=== PATIENT | female | born 1965 | race Caucasian/White ===

== ENCOUNTER 2016-03-31 23:48 | Inpatient (IN) | payer MEDICAID ==
[2016-04-01 01:07] VITALS: BP 138/85
[2016-04-01] MEDS: Albuterol/Ipratropium Neb 3 ML AERS HHN PRN (02:02)
[2016-04-01] MEDS ORDERED: Magnesium Hydroxide (MOM) 30 mL UDC GT PRN (04:27)
[2016-04-01 05:39] LABS: % BASOPHILS 1.1 % (0.0-2.0); % EOSINOPHILS 1.1 % (0.0-5.0); % LYMPHOCYTES 36.5 % (20.0-50.0); % MONOCYTES 12.7 % (2.0-10.0); % NEUTROPHILS 48.6 % (40.0-80.0); HEMATOCRIT 30.5 % (35.0-45.0); HEMOGLOBIN 10.2 gm/dL (11.7-15.5); MEAN CELL VOLUME 91.3 fl (81-100); MEAN CORPUSCULAR HEMOGLOBIN 30.7 pg (27.0-31.0); MEAN CORPUSCULAR HGB CONC 33.6 pg (28.0-36.0); MEAN PLATELET VOLUME 7.4 fl; NEUTROPHILE ABSOLUTE 5.8 Th/cmm (1.8-8.0); PLATELET COUNT 429 Th/cmm (150-400); RED BLOOD COUNT 3.33 Mil/cmm (3.80-5.10); RED CELL DISTRIBUTION WIDTH 15.9 % (11.5-20.0); WHITE BLOOD COUNT 11.8 Th/cmm (4.8-10.8)
[2016-04-01 06:18] LABS: ALB/GLOB RATIO 0.8 (1.0-1.8); ALKALINE PHOSPHATASE 66 U/L (34-104); ANION GAP 7.9 (7.0-16.0); BILIRUBIN,TOTAL 0.6 mg/dL (0.3-1.0); BUN - UREA NITROGEN 7 mg/dL (7-25); BUN/CREATININE RATIO 23.3; CALCIUM SERUM 9.7 mg/dL (8.6-10.3); CARBON DIOXIDE 27.4 mEq/L (21.0-31.0); CHLORIDE 101 mEq/L (98-107); CREATININE - SERUM 0.3 mg/dL (0.6-1.2); GLUCOSE 93 mg/dL (70-105); MAGNESIUM 1.7 mg/dL (1.9-2.7); POTASSIUM SERUM 3.3 mEq/L (3.5-5.1); SGOT 18 U/L (13-39); SGPT/ALT 8 U/L (7-52); SODIUM SERUM 133 mEq/L (136-145)
[2016-04-01] MEDS: Albuterol/Ipratropium Neb 3 ML AERS HHN SCH ×3 (07:44→19:16)
[2016-04-01] MEDS: Chlorhexidine Gluconate 0.12% 15mL Mouthwash MM SCH ×2 (08:21→21:20)
[2016-04-01] MEDS: Ferrous Sulfate 300 MG/5 ML UDC GT SCH (10:55)
[2016-04-01] MEDS: Multivitamin w/ Minerals Tab GT SCH (10:55)
[2016-04-01] MEDS: Potassium Chloride Elixir 20 mEq /15 mL UDC GT SCH (13:00)
[2016-04-01] MEDS ORDERED: Mag Sulfate 2gm/50mL Premix 2 GM/50 ML BAG IV ONE (13:30)
[2016-04-01] MEDS ORDERED: CEFTAZIDIME IV SCH (15:00)
[2016-04-01] MEDS ORDERED: Pneumococcal Vaccine 0.5 mL Vial IM ONE (15:00)
[2016-04-01] MEDS ORDERED: NS 0.9% IV SCH (15:00)
[2016-04-01] MEDS: Levofloxacin 500mg/100mL 500 MG/100 ML BAG IV SCH (17:26)
[2016-04-01] MEDS: Atorvastatin Calcium 10 MG TAB GT SCH (21:20)
[2016-04-01 22:11] LABS: URINE COLOR YELLOW
[2016-04-01 22:18] LABS: URINE BILIRUBIN NEGATIVE (NEGATIVE); URINE BLOOD NEGATIVE (NEGATIVE); URINE GLUCOSE (UA) NEGATIVE (NEGATIVE); URINE KETONE NEGATIVE (NEGATIVE); URINE PROTEIN NEGATIVE (NEGATIVE); URINE UROBILINOGEN 0.2 E.U./dL (0.2 - 1.0)
[2016-04-01 22:19] LABS: URINE RBC 0-1 /hpf (0-5)
[2016-04-01 22:20] LABS: URINE BACTERIA OCCASIONAL /hpf (NONE SEEN); URINE EPITHELIAL CELLS OCCASIONAL /lpf (FEW)
[2016-04-01] MEDS: Ipratropium Neb 0.5 mg/2.5 mL UD HHN SCH (22:56)
--- NOTE | 2016-04-02 00:05 | Consultation ---
TYPE OF CONSULTATION: Psychiatric. REFERRING PHYSICIAN: Dr. Chacorta Gupta. REASON FOR CONSULTATION: Depression/suicidal ideations. HISTORY OF PRESENT ILLNESS: The patient transferred via ambulance on a voluntary basis for pneumonia. The patient has a significant history of polysubstance dependence and bipolar disorder, which she has not been compliant with. The patient stated that her last psychiatric hospitalization was about 2 years ago, where she attempted to overdose on tablets and alcohol. The patient is currently denying minimize all the events. States that she has not been compliant with her medications since her discharge 2 years ago and admits that she has been using alcohol and that there was a substance. She is currently denying any suicidal or homicidal ideations. According to staff, she has not been engaging in any self interest or assaultive behavior. PAST PSYCHIATRIC HISTORY: The patient states she has had 1 past hospitalization at an unknown hospital about 2 years ago for a suicide attempt by overdose. PAST MEDICAL HISTORY: The patient is physically healthy. ALLERGIES: No known drug allergies. SOCIAL HISTORY: The patient is currently at homeless, unknown how she supports herself financially. The patient denies ____. Denies ____ physical or sexually abuse. MENTAL STATUS, GENERAL APPEARANCE AND BEHAVIOR. The patient is resting comfortably, not in acute distress. Good eye contact, calm for interview. Speech normal rate, rhythm and tone. Mood and Affect: The patient described her mood as anxious. Affect is congruent. Thought process, thought content, linear, logical patient denying any suicidal or homicidal ideations, is not displaying any flight of ideas with good reality testing. Insight and judgment is fair. DIAGNOSTIC IMPRESSION: Bipolar disorder by history, most recently episodes, depressed without psychotic features and polysubstance dependence. PLAN: The patient is currently denying any suicidal or homicidal ideations, but she does not meet criteria for inpatient stay and can be discharged once she is medically cleared. The patient is currently on Lamictal 25 mg for mood stabilization, would recommend continuing that and titrating as needed. We will follow up on an as needed basis. Thank you, for allowing us to participate in the patient's care. [facility]# [id number]
--- NOTE | 2016-04-02 01:11 | History & Physical ---
Vineet Gupta M.D. dictating for Chacorta Gupta M.D. HISTORY OF PRESENT ILLNESS: The patient is being admitted to ICU on transfer from [facility] Emergency Room, where she was transferred from the care home, where she is a resident with history of increasing anxiety and short of breath. According to the history obtained from the medical record, transfer records and from the patient that she started feeling anxiety and short of breath, so transferred to Emergency Room. Denies of any fever, chills or rigor. The patient also denies of any nausea, vomiting, feeling dizzy, lightheaded. Has had some pain at the lower part of the chest. This chest pain is on the lateral side, more on the left side than the right. The patient was evaluated at [place] and it shows that she has had multilobular patchy pulmonary opacities, left greater than right, no pleural effusion, no pneumothorax. Her lab work was showing that she has had some leukocytosis and left shift as WBC count was 16.7, hemoglobin is slightly low to 10.5. The platelet count is elevated to 487. Chem-7 was normal. Here, magnesium was repeated, which was low. Urine test was negative for anything, and urine drug screen negative for the most common drug abused. PAST MEDICAL HISTORY: Has had respiratory failure, status post tracheostomy, status post PEG. Has history of alcohol and amphetamine abuse. She also has history of multi-substance abuse and has bipolar personality. 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 Most likely, there are drug-related complications. ALLERGIES: Penicillin and sulfa, but apparently no reaction to the Fortaz given in the [facility] ER, this was dosed there. MEDICATIONS: Reviewed and reconciled. The patient is on G tube feeding. REVIEW OF SYSTEMS: Nothing contributory except as mentioned above. PHYSICAL EXAMINATION: GENERAL: The patient is a 50-year-old female, alert, oriented, on vent. VITAL SIGNS: Pulse is in the 86-91 range. Blood pressure 114/70, O2 saturation on present setting is 100%. HEENT: Normal, nontraumatic. Eyes: Conjunctivae normal. Pupils are equal, reacting to light. ENT: Looks normal. NECK: Tracheostomy and tracheal tube is in place. JVP difficult to evaluate. LUNGS: Bilateral basilar rales present. Otherwise, upper part is clear. CARDIOVASCULAR SYSTEM: PMI not palpable. Heart sounds are normal. No gallop or murmur is appreciated. No rub is appreciated. ABDOMEN: Soft. There is tenderness present in the left side area. [employer]TER: Left-sided hemiparesis present. EXTREMITIES: No edema, no cyanosis, no clubbing. Peripheral pulses are equal bilaterally. IMPRESSION: Bibasilar pneumonia with increasing respiratory distress. The patient has chronic respiratory failure and is ventilator dependent. Has history of drug abuse that is alcohol and amphetamine and with complications of that causing cerebrovascular accident and respiratory failure. The patient is ventilator dependent. Also has depression and suicidal thought. Other medical problems as mentioned. PLAN: Continue supportive care. IV Fortaz and vancomycin, we will continue that. We will get ID consult as needed. Also, we will get Dr. Rob Perera for Pulmonary and ventilator management. Psych consultation with Dr. Aparicio. Further workup and management as needed. We will get Dr. Galdino Perera for ID consultation and further workup and management as needed. JOB# [id number]
[2016-04-02] MEDS: Ipratropium Neb 0.5 mg/2.5 mL UD HHN SCH ×6 (03:20→22:56)
[2016-04-02 06:41] LABS: ALB/GLOB RATIO 0.8 (1.0-1.8); ALKALINE PHOSPHATASE 62 U/L (34-104); ANION GAP 9.2 (7.0-16.0); BILIRUBIN,DIRECT 0.13 mg/dL (0.0-0.2); BILIRUBIN,TOTAL 0.4 mg/dL (0.3-1.0); BUN - UREA NITROGEN 9 mg/dL (7-25); CALCIUM SERUM 9.5 mg/dL (8.6-10.3); CARBON DIOXIDE 29.6 mEq/L (21.0-31.0); CHLORIDE 99 mEq/L (98-107); CREATININE - SERUM 0.3 mg/dL (0.6-1.2); GLUCOSE 109 mg/dL (70-105); POTASSIUM SERUM 3.8 mEq/L (3.5-5.1); SGOT 14 U/L (13-39); SGPT/ALT 8 U/L (7-52); SODIUM SERUM 134 mEq/L (136-145)
[2016-04-02] MEDS: Albuterol/Ipratropium Neb 3 ML AERS HHN SCH ×2 (07:33→12:53)
[2016-04-02] MEDS: Budesonide 0.5 Mg/2 mL Ud HHN SCH ×2 (07:41→19:00)
[2016-04-02] MEDS: Chlorhexidine Gluconate 0.12% 15mL Mouthwash MM SCH ×2 (08:10→21:52)
[2016-04-02] MEDS: Multivitamin w/ Minerals Tab GT SCH (08:43)
[2016-04-02] MEDS: Ferrous Sulfate 300 MG/5 ML UDC GT SCH (08:43)
[2016-04-02] MEDS: Potassium Chloride Elixir 20 mEq /15 mL UDC GT SCH (08:44)
--- NOTE | 2016-04-02 10:28 | Diagnostic Imaging Report ---
Portable chest x-ray HISTORY: Pneumonia The overall heart size is difficult to assess with portable technique in a poor inspiration. Infiltrates noted in the right left upper lobe regions. Pneumonia cannot be excluded. Clinical correlation is needed. Tracheostomy seen. IMPRESSION: 1. Bilateral infiltrates. Pneumonia cannot be excluded. Clinical correlation is needed.
[2016-04-02 11:48] LABS: ABG SOURCE Arterial; ALLEN TEST PASS; BE(B) 7.5 mmol/L (-3.0-3.0); HCO3 31.1 mmol/L (20.0-26.0); MECH RATE 10; pH 7.51 (7.35-7.45)
[2016-04-02 11:49] LABS: CRITICAL VALUES REPORTED BY PW; FIO2 30; MECH VT 500
[2016-04-02] MEDS ORDERED: Probiotic Screen MC PRN (14:38)
[2016-04-02] MEDS: Levofloxacin 500mg/100mL 500 MG/100 ML BAG IV SCH (17:14)
[2016-04-02] MEDS: Atorvastatin Calcium 10 MG TAB GT SCH (21:55)
[2016-04-03] MEDS: Ipratropium Neb 0.5 mg/2.5 mL UD HHN SCH ×5 (02:38→22:32)
[2016-04-03 05:04] LABS: % BASOPHILS 0.5 % (0.0-2.0); % EOSINOPHILS 0.5 % (0.0-5.0); % LYMPHOCYTES 23.1 % (20.0-50.0); % MONOCYTES 9.9 % (2.0-10.0); HEMATOCRIT 30.7 % (35.0-45.0); HEMOGLOBIN 10.4 gm/dL (11.7-15.5); MEAN CELL VOLUME 89.3 fl (81-100); MEAN CORPUSCULAR HEMOGLOBIN 30.4 pg (27.0-31.0); MEAN PLATELET VOLUME 7.5 fl; NEUTROPHILE ABSOLUTE 11.9 Th/cmm (1.8-8.0); PLATELET COUNT 434 Th/cmm (150-400); RED BLOOD COUNT 3.43 Mil/cmm (3.80-5.10); RED CELL DISTRIBUTION WIDTH 15.8 % (11.5-20.0)
[2016-04-03 05:12] LABS: WHITE BLOOD COUNT 18.1 Th/cmm (4.8-10.8)
[2016-04-03 05:29] LABS: BUN - UREA NITROGEN 7 mg/dL (7-25); BUN/CREATININE RATIO 23.3; CALCIUM SERUM 9.9 mg/dL (8.6-10.3); CARBON DIOXIDE 27.8 mEq/L (21.0-31.0); CHLORIDE 98 mEq/L (98-107); CREATININE - SERUM 0.3 mg/dL (0.6-1.2); GLUCOSE 142 mg/dL (70-105); POTASSIUM SERUM 3.8 mEq/L (3.5-5.1); SODIUM SERUM 131 mEq/L (136-145)
[2016-04-03] MEDS: Albuterol/Ipratropium Neb 3 ML AERS HHN SCH ×2 (07:32→13:10)
[2016-04-03] MEDS: Potassium Chloride Elixir 20 mEq /15 mL UDC GT SCH (08:46)
[2016-04-03] MEDS: Ferrous Sulfate 300 MG/5 ML UDC GT SCH (08:47)
[2016-04-03] MEDS: Multivitamin w/ Minerals Tab GT SCH (08:51)
[2016-04-03] MEDS: Lactobacillus Rhamnosus 10 Billion CFU Capsule PO SCH (08:51)
[2016-04-03] MEDS: Chlorhexidine Gluconate 0.12% 15mL Mouthwash MM SCH ×2 (08:52→21:22)
--- NOTE | 2016-04-03 09:49 | Consultation ---
REASON FOR CONSULTATION: Help patient with pneumonia with [id number] respiratory failure. CONSULT NOTE: This is a 50-year-old female who is in a chronic vent at some local facility and because she got more shortness of breath, the patient went to the Emergency Room. Subsequently, because of insurance reason, the patient was transferred here for further care and necessary treatment. The patient complains of panic attack. She is on a respirator for last 2 months and also was in coma according to her history and since then she is not able to move left upper and lower extremity. All other sequence of events lead to pneumonia, etc. a couple of months ago, is not clear to me. Apparently, she is on a trach since then and the patient got short of breath and was taken to a local Emergency Room and from there transferred here. PAST MEDICAL HISTORY: History of previous pneumonia, on a ventilator, exact etiology not clear whether it is a drug abuse and/or encephalopathy or possibly stroke. SOCIAL HISTORY: Smoking history very remote. Drug Use: History of positive drug use. ALLERGIES: THE PATIENT SAYS NOTHING EXCEPT FOR PENICILLIN AND SULFA. FAMILY HISTORY: Noncontributory. Other history is very sketchy or limited. PHYSICAL EXAMINATION: GENERAL: This is a middle-aged looking female, awake, alert, oriented, tried to talk through the trach, making some funny noise. Not in any acute distress. VITAL SIGNS: Currently, on assist control mode of ventilator with 40% of oxygen and temperature is 97.9, blood pressure 135/73. HEENT: Head is essentially unremarkable. Pupils appear to be equal and reacting to light. Conjunctivae are pink, sclerae is white. Ears: Externally appears to be okay. Oral cavity shows limited exam, unremarkable. NECK: No nodes in the neck could be palpated. Good bilateral carotid upstroke. CHEST: Findings shows scattered rhonchi with generalized diminished air entry. HEART: Regular. EXTREMITIES: Shows no peripheral edema. No cyanosis or clubbing could be appreciated. Left side shows hemiparesis. LABORATORY DATA: The patient's white count is 11,000. Chest x-ray is not available to me at this particular time. ASSESSMENT IMPRESSION: 1. The patient has fqgzo-[id number] respiratory failure, probably ziggf-iq-knutwyv pneumonia, ventilator associated. 2. Underlying history of chronic ventilator-dependent with left-sided hemiplegia. PLANS AND SUGGESTIONS: We will go ahead and continue current antibiotic including vancomycin and also continue aggressive inhalation treatment and await for sputum for C and S. We will repeat another chest x-ray. We will give some anxiolytic medications, etc., and go from there. JOB# [id number]
--- NOTE | 2016-04-03 15:12 | Infectious Disease Prog Note ---
Infectious Disease Subjective - Review of Systems Service Date: 04/03/16 Subjective: cc pneummonia hpi- pt confused seen by psyche cornel no fever o/e Physical Exam: General: No Acute Distress HEENT: EOMI Bilaterally, PERRLA Bilaterally, Head is normocephalic, atraumatic on inspection. Cardio: +S1/S2 Auscultated, RRR, no murmurs/rubs/gallops noted Respiratory: Clear to Auscultate Bilaterally trach Abdominal: Soft, Nondistended, Nontender to palpation x 4 quadrants Genital/Urinary: Extremities: No Edema noted in the lower extremities Neurological: Cranial Nerves II-XII intact bilaterally, Gait Steady,l Focal Deficits noted. Infectious Disease Objective - Results Result Diagrams: 04/03/16 04:41 04/03/16 04:41 Recent Labs: Laboratory Last Values WBC 18.1 Th/cmm (4.8-10.8) H D 04/03/16 04:41 RBC 3.43 Mil/cmm (3.80-5.10) L 04/03/16 04:41 Hgb 10.4 gm/dL (11.7-15.5) L 04/03/16 04:41 Hct 30.7 % (35.0-45.0) L 04/03/16 04:41 MCV 89.3 fl (81-100) 04/03/16 04:41 MCH 30.4 pg (27.0-31.0) 04/03/16 04:41 MCHC Differential 34.0 pg (28.0-36.0) 04/03/16 04:41 RDW 15.8 % (11.5-20.0) 04/03/16 04:41 Plt Count 434 Th/cmm (150-400) H 04/03/16 04:41 MPV 7.5 fl 04/03/16 04:41 Neutrophils % 66.0 % (40.0-80.0) 04/03/16 04:41 Lymphocytes % 23.1 % (20.0-50.0) 04/03/16 04:41 Monocytes % 9.9 % (2.0-10.0) 04/03/16 04:41 Eosinophils % 0.5 % (0.0-5.0) 04/03/16 04:41 Basophils % 0.5 % (0.0-2.0) 04/03/16 04:41 ESR 76 mm/hr (0-30) H 04/03/16 04:41 Specimen Source Arterial 04/02/16 11:17 Sample Site Right Radial 04/02/16 11:17 pH 7.51 (7.35-7.45) H 04/02/16 11:17 pCO2 39.0 mmHg (35.0-45.0) 04/02/16 11:17 pO2 110.0 mmHg (80.0-100.0) H 04/02/16 11:17 HCO3 31.1 mmol/L (20.0-26.0) H 04/02/16 11:17 Base Excess 7.5 mmol/L (-3.0-3.0) H 04/02/16 11:17 O2 Saturation 99.0 % (92.0-100.0) 04/02/16 11:17 Kenan Test PASS 04/02/16 11:17 Vent Rate 10 04/02/16 11:17 Inspired O2 30 04/02/16 11:17 Tidal Volume 500 04/02/16 11:17 PEEP 5 04/02/16 11:17 Critical Value PW 04/02/16 11:17 Sodium 131 mEq/L (136-145) L 04/03/16 04:41 Potassium 3.8 mEq/L (3.5-5.1) 04/03/16 04:41 Chloride 98 mEq/L (98-107) 04/03/16 04:41 Carbon Dioxide 27.8 mEq/L (21.0-31.0) 04/03/16 04:41 Anion Gap 9.0 (7.0-16.0) 04/03/16 04:41 BUN 7 mg/dL (7-25) 04/03/16 04:41 Creatinine 0.3 mg/dL (0.6-1.2) L 04/03/16 04:41 Est GFR ( Amer) > 60.0 ml/min (>90) 04/03/16 04:41 Est GFR (Non-Af Amer) > 60.0 ml/min 04/03/16 04:41 BUN/Creatinine Ratio 23.3 04/03/16 04:41 Glucose 142 mg/dL (70-105) H 04/03/16 04:41 Calcium 9.9 mg/dL (8.6-10.3) 04/03/16 04:41 Magnesium 2.0 mg/dL (1.9-2.7) 04/02/16 04:33 Total Bilirubin 0.4 mg/dL (0.3-1.0) 04/02/16 04:33 Direct Bilirubin 0.13 mg/dL (0.0-0.2) 04/02/16 04:33 AST 14 U/L (13-39) 04/02/16 04:33 ALT 8 U/L (7-52) 04/02/16 04:33 Alkaline Phosphatase 62 U/L (34-104) 04/02/16 04:33 C-Reactive Protein 1.70 mg/dL (0.0-0.9) H 04/03/16 04:41 Total Protein 6.9 gm/dL (6.0-8.3) 04/02/16 04:33 Albumin 3.1 gm/dL (3.7-5.3) L 04/02/16 04:33 Globulin 3.8 gm/dL 04/02/16 04:33 Albumin/Globulin Ratio 0.8 (1.0-1.8) L 04/02/16 04:33 Urine Source [place] 04/01/16 11:10 Urine Color YELLOW 04/01/16 11:10 Urine Clarity SLIGHTLY CLOUDY (CLEAR) 04/01/16 11:10 Urine pH 6.0 04/01/16 11:10 Ur Specific [place] 1.025 (1.005-1.030) 04/01/16 11:10 Urine Protein NEGATIVE mg/dL (NEGATIVE) 04/01/16 11:10 Urine Glucose (UA) NEGATIVE mg/dL (NEGATIVE) 04/01/16 11:10 Urine Ketones NEGATIVE mg/dL (NEGATIVE) 04/01/16 11:10 Urine Blood NEGATIVE (NEGATIVE) 04/01/16 11:10 Urine Nitrate NEGATIVE (NEGATIVE) 04/01/16 11:10 Urine Bilirubin NEGATIVE (NEGATIVE) 04/01/16 11:10 Urine Urobilinogen 0.2 E.U./dL (0.2 - 1.0) 04/01/16 11:10 Ur Leukocyte Esterase NEGATIVE (NEGATIVE) 04/01/16 11:10 Urine RBC 0-1 /hpf (0-5) 04/01/16 11:10 Urine WBC 2-5 /hpf (0-5) 04/01/16 11:10 Ur Epithelial Cells OCCASIONAL /lpf (FEW) 04/01/16 11:10 Urine Bacteria OCCASIONAL /hpf (NONE SEEN) 04/01/16 11:10 Urine Yeast FEW /hpf (NONE SEEN) H 04/01/16 11:10 - Physical Exam Vitals and I&O: Vital Signs Temp 97.6 F 04/03/16 13:00 Pulse 103 04/03/16 13:10 Resp 23 04/03/16 13:00 BP 121/80 04/03/16 13:00 Pulse Ox 99 04/03/16 13:10 Intake & Output 04/02/16 04/03/16 04/03/16 18:59 06:59 18:59 Intake Total 783 8816.7 170 Output Total 600 1302 100 Balance 183 7514.7 70 Intake: Intake, IV Amount 200 295.7 100 Levofloxacin 500mg/100mL 100 500 mg In 100 ml @ 100 mls/hr IV Q24H [facility] Rx#: [id number] Vancomycin HCl 1 gm In 245.7 Sodium Chloride 0.9% 250 ml @ 165 mls/hr IV Q24H [facility] Rx#:[id number] cefTAZidime 1 gm In 100 50 100 Dextrose 5% 50 ml @ 100 mls/hr IV Q8H [facility] Rx#: [id number] Oral 0 0 Tube Feeding 583 8401 70 Other 120 Output: Urine 600 1300 100 Stool 2 Other: # Bowel Movements 1 Stool Characteristics Soft Soft Soft Green Brown Brown Active Medications: Current Medications Acetaminophen (Tylenol 650mg/20.3ml Suspension) 640 mg GT Q4H PRN PRN Reason: Pain (Mild) Stop: 05/31/16 04:26 Last Admin: 04/01/16 11:01 Dose: 640 mg Acetaminophen (Tylenol 650mg/20.3ml Suspension) 640 mg GT Q4H PRN PRN Reason: Fever > 101 Stop: 05/31/16 04:26 Albuterol/Ipratropium (Duoneb Neb) 3 ml HHN Q6HRT [facility] Stop: 05/31/16 06:59 Last Admin: 04/03/16 13:10 Dose: 3 ml Albuterol/Ipratropium (Duoneb Neb) 3 ml HHN Q2H PRN PRN Reason: Wheezing Stop: 05/31/16 01:21 Last Admin: 04/01/16 02:02 Dose: 3 ml Aspirin (Aspirin) 325 mg GT DAILY [facility] Stop: 05/31/16 08:59 Last Admin: 04/03/16 08:50 Dose: 325 mg Atorvastatin Calcium (Lipitor) 5 mg GT HS [facility] PRN Reason: Protocol Stop: 05/31/16 20:59 Last Admin: 04/02/16 21:55 Dose: 5 mg Bisacodyl (Dulcolax 10 Mg Supp) 10 mg RC DAILY PRN PRN Reason: Constipation Stop: 05/31/16 04:26 Budesonide (Pulmicort) 0.5 mg HHN BIDRT [facility] Stop: 06/01/16 06:59 Last Admin: 04/02/16 19:00 Dose: 0.5 mg Chlorhexidine Gluconate (Peridex) 15 ml MM 0800,1999 [facility] Stop: 05/31/16 07:59 Last Admin: 04/03/16 08:52 Dose: 15 ml Clonidine HCl (Catapres) 0.3 mg GT Q6H PRN PRN Reason: sbp above 160 or dbp above 110 Diphenhydramine HCl (Benadryl) 25 mg GT Q6H PRN PRN Reason: Itching Stop: 05/31/16 04:26 Last Admin: 04/01/16 21:22 Dose: 25 mg Ferrous Sulfate (Iron) 330 mg GT DAILY [facility] Stop: 05/31/16 08:59 Last Admin: 04/03/16 08:47 Dose: 320 mg Heparin Sodium (Porcine) (Heparin) 5,000 units SUBQ Q12H [facility] Stop: 05/31/16 04:29 Last Admin: 04/03/16 05:13 Dose: Not Given Vancomycin HCl 1 gm/ Sodium (Chloride) 250 mls @ 165 mls/hr IV Q24H [facility] Stop: 05/31/16 15:59 Last Infusion: 04/02/16 19:43 Dose: 0 mls/hr Ceftazidime 1 gm/ Dextrose 50 mls @ 100 mls/hr IV Q8H [facility] Stop: 05/31/16 14:59 Last Infusion: 04/03/16 14:35 Dose: Infused Levofloxacin (Levaquin Pb) 500 mg in 100 mls @ 100 mls/hr IV Q24H [facility] Stop: 05/31/16 16:59 Last Infusion: 04/02/16 18:14 Dose: Infused Ipratropium [place] (Atrovent Neb 0.5mg/2.5ml) 0.5 mg HHN Q4HRT [facility] Stop: 05/31/16 22:59 Last Admin: 04/03/16 11:19 Dose: 0.5 mg Lactobacillus Rhamnosus (Culturelle) 1 each PO DAILY [facility] Stop: 06/02/16 08:59 Last Admin: 04/03/16 08:51 Dose: 1 each Lamotrigine (Lamictal) 25 mg GT HS [facility] PRN Reason: Protocol Stop: 05/31/16 20:59 Last Admin: 04/02/16 21:55 Dose: 25 mg Lorazepam (Ativan) 1 mg IVP Q4HR PRN; Protocol PRN Reason: Agitation Stop: 05/31/16 19:46 Last Admin: 04/03/16 12:30 Dose: 1 mg Magnesium Hydroxide (Milk Of Magnesia) 30 ml GT HS PRN PRN Reason: Constipation Stop: 05/31/16 04:26 Magnesium Oxide (Mag-Oxide) 400 mg GT DAILY [facility] Stop: 05/31/16 12:29 Last Admin: 04/03/16 08:50 Dose: 400 mg Miscellaneous (Probiotic Screen) 1 ea MC PRN PRN PRN Reason: PROTOCOL Stop: 06/01/16 14:37 Ondansetron HCl (Zofran Odt) 4 mg SL Q6H PRN PRN Reason: Nausea / Vomiting Potassium Chloride (Potassium Chloride Elixir) 20 meq GT DAILY [facility] Stop: 05/31/16 12:29 Last Admin: 04/03/16 08:46 Dose: 20 meq Propranolol HCl (Inderal) 20 mg GT BID [facility] Stop: 05/31/16 08:59 Last Admin: 04/03/16 08:47 Dose: 20 mg
[2016-04-03] MEDS: Sodium Chloride 0.9% 1,000 ML IV SCH (15:15)
--- NOTE | 2016-04-03 15:56 | Progress Notes ---
PROBLEM LIST: 1. Acute on chronic respiratory failure. 2. Possibly pneumonia, left side. 3. Underlying history of encephalopathy with cerebrovascular accident with left hemiparesis. SYMPTOMS: Nil, ____, no respiratory distress, switching TV. Denies of any significant symptomatology. PHYSICAL EXAMINATION: VITAL SIGNS: The patient's blood pressure 117/73, saturation 100% on 30% of ventilator, heart rate is in 80s, respirations in low teens and high tens. ENT: Shows no new changes. NECK: Trach site appears to be okay. CHEST: Shows occasional rhonchi with diminished air entry. HEART: Regular. ABDOMEN: Soft, nontender. LABORATORY DATA: The patient's white count is pending and patient's ABG shows mild metabolic alkalosis. White count is ____. Electrolytes are okay. Urine is essentially unremarkable ____. Chest x-ray shows some haziness on left side, also on the right upper regions, appears to my eyes, chronic in appearance. ASSESSMENT: The patient is clinically stable, not much changed, ____ with acute on chronic respiratory failure, underlying history of encephalopathy, also history of previous pneumonia as well as cerebrovascular accident, also long-term ventilator for the last 2-3 months. PLANS AND SUGGESTIONS: We will go ahead and continue current treatment. We will await for all the cultures to come back and see what it is and go from there. JOB# [id number]
[2016-04-03] MEDS: Levofloxacin 500mg/100mL 500 MG/100 ML BAG IV SCH (16:52)
--- NOTE | 2016-04-03 18:07 | Progress Notes ---
SUBJECTIVE: The patient is awake, alert. The patient is on ventilator. The patient is on IV antibiotics. The patient is on IV fluids. OBJECTIVE: VITAL SIGNS: Temperature is 98.4, pulse of 88, blood pressure 119/73, respiratory rate 11, pulse ox 100% on FIO2 of 30%. CARDIOVASCULAR: S1, S2. RESPIRATORY: Rales. GASTROINTESTINAL: Soft. Positive bowel sounds. LABORATORY DATA: CBC for today unavailable. ABG, pH 7.5, pCO2 39, pO2 110, bicarbonate of 31, base excess 7.5. Chemistry: Sodium 134, potassium 3.8, chloride 90, bicarbonate 29, anion gap of 9.2, BUN 9, creatinine 0.3, glucose 109, calcium 9.5, magnesium 2.0. AST is 14, ALT is 8, alkaline phosphatase 62, troponin 6.9, albumin 3.1, globulin 3.8. Microbiology: Urine culture from 04/01/2016 Staphylococcus aureus. The MRSA screen from 04/01/2016 negative. Urine culture from 04/01/2016 shows yeast. ASSESSMENT: 1. Sepsis. 2. Pneumonia, secondary to Staphylococcus aureus (probable methicillin-resistant Staphylococcus aureus). 3. Urinary tract infection, secondary to yeast. 4. Respiratory failure (acute) 5. Ventilator dependence. 6. History of drug abuse, history of alcohol abuse, history of methamphetamine abuse. 7. History of cerebrovascular accident. 8. Depression. 9. Suicidal ideation. PLAN: Continue current medication. Obtain labs in a.m. Awaiting final culture results. Continue ventilator management. Further consults. JOB# [id number] AMY
--- NOTE | 2016-04-03 19:21 | Consultation ---
INFECTIOUS DISEASE CONSULTATION: PRIMARY CARE PHYSICIAN: Chacorta Gupta M.D. REASON FOR CONSULTATION: Pneumonia. HISTORY OF PRESENT ILLNESS: This is a 50-year-old female who was initially taken to [place]. The patient was found to have anxiety, respiratory failure and was on ventilator. The patient was found to have pneumonia and was started on antibiotics. Infectious consultation was called for further treatment after transferred to [facility]. The patient is in ICU, unable to provide meaningful history. Chart reviewed, discussed with the staff, antibiotic adjusted. PAST MEDICAL HISTORY: Vent dependence, amphetamine abuse, CVA, left-sided hemiparesis, anxiety, bipolar disorder. ALLERGIES: Penicillin, sulfa. FAMILY HISTORY: None. PAST SURGICAL HISTORY: The patient has tracheostomy and EGD, PEG placement. REVIEW OF SYSTEMS: A 14-point review of systems negative except above. PHYSICAL EXAMINATION: GENERAL: The patient is alert, awake, not in distress, with the following vital signs, thin-built female. VITAL SIGNS: Temperature is 97.9, pulse 86, respirations 22, blood pressure 145/73. HEENT: Mild pallor, no icterus or plaque. NECK: Supple. . No thyromegaly, no cervical lymph nodes. Tracheostomy present. LUNGS: Breath sounds bilaterally decreased all over. CARDIOVASCULAR: S1, S2. ABDOMEN: Soft, bowel sounds. NEUROLOGIC: Left-sided weakness present. LABORATORY DATA: The patient's white count 11,000, hemoglobin is 10 g, platelets 429. Creatinine 0.3. Chest x-ray infiltrates. Cultures are pending. DIAGNOSES: 1. Pneumonia. 2. Ventilator dependence. 3. Cerebrovascular accident. 4. Left-sided hemiparesis. 5. Penicillin and sulfa allergy. PLAN: The patient is already on vancomycin, Fortaz. We will add Levaquin. Psych consult requested. Rest of the care as ordered in [facility]. Thank you, Dr. Gupta, for this consultation. JOB# [id number]
[2016-04-03] MEDS: Atorvastatin Calcium 10 MG TAB GT SCH (21:21)
--- NOTE | 2016-04-03 21:45 | Admit Criteria Form ---
Admit Criteria Forms - Admit Criteria Admit Criteria Met?: Yes
--- NOTE | 2016-04-04 00:33 | Admit Criteria Form ---
Admit Criteria Forms - Admit Criteria Diagnosis: INTENSIVE CARE UNIT ADMISSION Intensive Care Admission Guidelines ( Place 'X' for any and all applicable criteria): Admission to ICU may be indicated when need is demonstrated by ANY ONE of the following (1)(2)(3)(4)(5)(6)(7)(8)(9) : [ ]I. Vital sign abnormalities, including ANY ONE of the following: [ ]a) Systolic arterial pressure less than 90 mm Hg, or 20 mm Hg below the patient's usual pressure [ ]b) Diastolic arterial pressure greater than 120 mm Hg [ ]c) Mean arterial pressure less than 70 mm Hg [A] [ ]d) Pulse less than 40 or greater than 140 beats per minute (in adult) [ ]e) Respiratory rate greater than 35 or less than 8 breaths per minute [ ]II. Laboratory findings (new), including ANY ONE of the following (10): [ ]a) Saturation of arterial oxygen less than 88% or partial pressure of oxygen less than 60 mm Hg (8.0 kPa) despite oxygen supplementation [ ]b) Rising partial pressure of carbon dioxide with respiratory acidosis [ ]c) pH less than 7.2 or greater than 7.65 [ ]d) Serum glucose greater than 800 mg/dL (44.4 mmol/L) [ ]e) Serum sodium less than 110 mEq/L (mmol/L) or greater than 160 mEq/L (mmol/L) [ ]f) Serum potassium less than 2 mEq/L (mmol/L) or greater than 7 mEq /L (mmol/L) [ ]g) Serum calcium greater than 15 mg/dL (3.75 mmol/L) [ ]h) Serum phosphorus less than 1 mg/dL (0.32 mmol/L) [ ]i) Toxic drug level or poisoning causing or likely to cause neurologic or Hemodynamic instability [ ]j) Less severe laboratory abnormalities contributing to ANY ONE of the following: [ ]i) Seizure [ ]ii) Altered mental status [ ]iii) Muscle weakness [ ]iv) Arrhythmias [ ]v) Hemodynamic instability [ ]vi) Other significant clinical manifestations [ ]III. Electrocardiogram (or cardiac monitoring) findings, including ANY ONE of the following: [ ]a) Inherently unstable or life-threatening arrhythmia (eg, sustained ventricular tachycardia, ventricular fibrillation, asystole) [ ]b) Arrhythmia causing severe hypotension (eg, bradycardia, tachycardia) [ ]c) Complete heart block causing severe hypotension [ ]d) Other findings indicative of a need for intensive care (eg , [place]) [ ]IV.Physical findings, including ANY ONE of the following: [ ]a) Threatened airway [ ]b) Sudden altered mental status [ ]c) Repeated or prolonged seizures [ ]d) Coma [ ]e) New-onset anuria (urine output <0.1 mL/kg/hr over 4 h) [ ]f) Cyanosis (new) [ ]g) Cardiac tamponade [ ]h) Status post respiratory or cardiac arrest [ ]i) Severe lambert (eg, partial thickness lambert over more than 10% of body surface, third-degree lambert) [ ]j) Findings consistent with abdominal emergency (eg, peritoneal signs) [ ]V.Imaging findings, such as dissecting aneurysm or ruptured viscus [ ].Specific intervention or monitoring needed, as indicated by ANY ONE of the following: [ ]a) New need for assisted ventilation, invasive or noninvasive(11) [ ]b) New need for intubation (eg, to protect airway) [ ]c) New tracheostomy (less than 48 hours old) [ ]d) Hourly vital signs or neurologic checks [ ]e) Pulmonary artery line monitoring needed [ ]f) Continuous arterial line monitoring needed [ ]g) Continuous IV vasoactive drugs [ ]h) Continuous IV antiarrhythmics [ ]i) Large volume IV fluid resuscitation (eg, greater than 6 L per day ) [ ]j) Large or rapid transfusion needs (eg, more than 6 units within 24 hours) [ ]k) High-risk IV treatment, such as bolus IV medicatns or mannitol infusion [ ]l) Acute cardiac pacing [ ]m) Intra-aortic balloon pump [ ]n) Ventricular assist device [ ]o) Cardioversion [ ]p) Pericardiocentesis [ ]q) Hemodialysis in unstable patient [ ]r) Continuous renal replacement therapy (eg, continuous veno-venous hemofiltration) [ ]s) Peritoneal dialysis initiation [ ]t) Emergency bronchoscopic therapy (eg, for hemoptysis) [ ]u) Emergency endoscopic therapy for bleeding [ ]v) Balloon tamponade for variceal bleeding [ ]w) Intracranial pressure monitoring or tissue oxygen monitoring [ ]x) Ventriculostomy monitoring [ ]y) Treatment of ongoing seizures [ ]z) Induced hypothermia or coma [ ]aa) Ongoing frequent testing and treatment for acute conditions, including ANY ONE of the following: [ ]i) Correction of severe metabolic acidosis/ alkalosis [ ]ii). Severe fluid overload [ ]iii) Cerebral edema [ ]iv) Monitoring or suctioning for respiratory insufficiency or acidosis [ ]v) Monitoring for active bleeding [ ]bb) Rapid desensitization for high-risk hypersensitivity reaction to required medication (eg, penicillin)(12) [ ]cc) Other need for treatment or monitoring not available outside the ICU [ ]VII.Cardiology diagnoses or procedures, including ANY ONE of the following (13)(14)(15)(16)(17): [ ]a) Chest pain with ANY ONE of the following: [ ]i) Hemodynamic instability [ ]ii) Suspicion of diagnoses needing ICU care (eg, aortic dissection) [ ]iii) New unstable or symptomatic arrhythmia or ECG finding (eg, ventricular tachycardia, ventricular fibrillation, advanced heart block) [ ]iv) Syncope or near-syncope [ ]v) SBP less than 100 mm Hg [ ]vi) Pulmonary edema thought to be due to ischemia [ ]vii) New or worsening mitral regurgitation murmur, S3 , or rales [ ]b) Acute [place] with complications as indicated by ANY ONE of the following: [ ]i) Persistent chest pain [ ]ii) Hemodynamic instability [ ]iii) New unstable or symptomatic arrhythmia or ECG finding (eg, ventricular tachycardia, ventricular fibrillation, advanced heart block) [ ]iv) Syncope or near-syncope [ ]v) Pulmonary edema thought to be due to ischemia [ ]vi) New or worsening mitral regurgitation murmur, S3 , or rales [ ]vii) New-onset bundle branch block [ ]viii) Hemorrhagic complication (eg, intracranial or access site bleed following thrombolysis) [ ]c) Cardiac arrhythmia or conduction defect with Hemodynamic instability [ ]d) Complication of cardiac ablation, including ANY ONE of the following(18): [ ]i) Pericardial tamponade [ ]ii) Hemodynamic instability [ ]iii) Thromboembolic stroke [ ]iv) Aortic valve injury [ ]v) Vascular injuries [ ]vi) Esophageal perforation [ ]vii) Severe arrhythmia [ ]viii) Air embolism [ ]ix) Other severe complication [ ]e) Cardiogenic shock [ ]f) Hypertensive emergency, with need for ANY ONE of the following(19): [ ]i) IV antihypertensive therapy [ ]ii) Invasive hemodynamic monitoring (eg, arterial line) [ ]g) Pericardial tamponade [ ]h) Severe heart failure, with ANY ONE of the following(15): [ ]i) Respiratory failure [ ]ii) Cardiogenic shock [ ]iii) Severe arrhythmias [ ]iv) Evidence of cardiac ischemia [ ]i Myocarditis, with ANY ONE of the following [ ]i) Hemodynamic instability [ ]ii) Respiratory failure [ ]iii) Severe arrhythmias [ ]iv) Need for cardiac assist device (eg, left ventricular assist device or extracorporeal membrane oxygenator) [ ]j) Status post cardiac arrest(20) [ ]VIII. Cardiovascular Surgery diagnoses or procedures, including ANY ONE of the following.(21)(22): [ ]a) Acute aortic dissection [ ]b) Aortic surgery for ANY ONE of the following: [ ]i) Thoracic aneurysm [ ]ii) Abdominal aneurysm with ANY ONE of the following(23): [ ]1) Emergency repair [ ]2) Severe cardiopulmonary disease [ ]3) Dialysis-dependent renal failure [ ]4) Need for IV blood pressure control [ ]5) Need for ongoing ventilatory support [ ]6) Perioperative complications, including ANY ONE of the following: [ ]A. Sustained Hemodynamic instability [ ]B. Cardiac ischemia or arrhythmia [ ]C. Hypothermia (less than 35 degrees C (95 degrees F)) [ ]D. Blood transfusion greater than 3 L [ ]iii) Aortic coarctation operative excision or repair [ ]iv) Aortofemoral or aortoiliac bypass with ANY ONE of the following: [ ]1) Continued intubation [ ]2) Hemodynamic instability [ ]3) Need for IV blood pressure control [ ]4) Severe cardiopulmonary disease [ ]c) Cardiac surgery [ ]d) Carotid endarterectomy or stent placement with ANY ONE of the following: [ ]i) Blood pressure <100/60 mm Hg or >160/90 mm Hg despite 4 h of postanesthetic management [ ]ii) New or progressive neurologic defect [ ]iii) Chest pain [ ]iv) Continued intubation [ ]v) Heart failure [ ]vi) Airway compromise by hematoma or vocal cord paralysis [ ]vi) Need for IV blood pressure control [ ]e) Heart transplant [ ]f) Infrainguinal peripheral vascular surgery with ANY ONE of the following: [ ]i) Hemodynamic instability [ ]ii) Acute complications such as persistent chest pain or respiratory distress [ ]iii) Requirement for IV antiarrhythmic or vasoactive agent [ ]iv) Requirement for pulmonary artery catheter [ ]v) Severe hypertension despite 6 hours of recovery room management [ ]g) Complications of any surgery requiring ICU intervention as indicated by ANY ONE of the following(24): [ ]i) Hemodynamic instability [ ]ii) Myocardial infarction with complications (eg, severe arrhythmia, hypotension) [ ]iii) Excessive bleeding or severe coagulopathy [ ]iv) Respiratory failure [ ]v) Renal failure [ ]vi) Airway instability or obstruction [ ]vii) Neurologic deterioration [ ]viii) Infection with likelihood of sepsis syndrome or significant fluid shifts [ ]IX.Endocrinology diagnoses or procedures, including ANY ONE of the following(25)(26): [ ]a) Adrenal crisis with Hemodynamic instability(27) [ ]b) Pheochromocytoma with ANY ONE of the following(28): [ ]i) Hypertensive crisis [ ]ii) Postoperative Hemodynamic instability [ ]iii) Need for IV vasoactive therapy [ ]iv) Need for invasive arterial or central venous pressure monitoring [ ]v) Organ ischemia [ ]c) Diabetic hyperosmolar state with obtundation or coma [ ]d) Diabetic ketoacidosis with ANY ONE of the following: [ ]i) Serum pH less than 7.10 or bicarbonate level less than 10 mEq/L (mmol/L) [ ]ii) Rapidly changing electrolytes [ ]iii) Hypotension [ ]iv) Requirement for large-volume fluid resuscitation [ ]v) Respiratory insufficiency [ ]vi) Life-threatening cardiac dysrhythmias [ ]vii) Obtundation [ ]viii) Severe precipitating condition such as sepsis, stroke, or acute [place] [ ]e) Severe hypoglycemia requiring continuous glucose infusion with frequent adjustment or glucagon infusion [ ]f) Hyperthyroidism associated with thyroid storm (also known as thyrotoxic crisis)(29) [ ]g) Myxedema with life-threatening neurologic, cardiovascular, electrolyte, or renal dysfunction(29) [ ]h) Diabetes insipidus that cannot be controlled with routine medication (30) [ ]X. Gastroenterology diagnoses or procedures, including ANY ONE of the following: [ ]a) Esophageal perforation(31) [ ]b) Severe caustic esophageal injury(31) [ ]c) Liver disease complications with ANY ONE of the following(32): [ ]i) Severe hepatic encephalopathy (eg, stage 3 (somnolent) or higher) [ ]ii) Type 1 hepatorenal syndrome [ ]iii) Other cirrhosis-associated causes of acute renal failure ( eg, severe hypovolemia, acute tubular necrosis, abdominal compartment syndrome) [ ]iv) Hemodynamic instability [ ]v) Respiratory insufficiency due to severe ascites [ ]vi) Sepsis due to spontaneous bacterial peritonitis [ ]d) Fulminant hepatic failure when aggressive intervention or transplant is anticipated (32) [ ]e) Gastrointestinal hemorrhage (upper or lower) with ANY ONE of the following(33)(34): [ ]i) Active ongoing bleeding [ ]ii) Transfusion requirement greater than 2 units of packed red cells [ ]iii) Bleeding ulcer or nonbleeding visible vessel seen on endoscopy [ ]iv) Bleeding ulcer, visible blood vessel, bleeding (or recently bleeding) esophageal varices seen on endoscopy [ ]v) Hypotension [ ]vi) Syncope [ ]vii) Coagulopathy [ ]viii) Hepatic cirrhosis [ ]ix) Abnormal mental status [ ]x) Unstable comorbid condition or end organ dysfunction [ ]xi) Ischemia due to poor perfusion [ ]xii) Need for hemodynamic monitoring (eg, for patients with heart failure or valvular disease) [ ]f) Severe pancreatitis indicated by ANY ONE of the following (35)(36): [ ]i) Requirement for aggressive fluid resuscitation [ ]ii) Life-threatening electrolyte abnormality [ ]iii) SBP less than 90 mm Hg [ ]iv) Persistent tachycardia greater than 120 beats per minute [ ]v) Patients at high risk of rapid deterioration, including ANY ONE of the following: [ ]1) Calculated [place] II score greater than 8 [ ]2) Age older than 55 years [ ]3) BMI greater than 30 [ ]4) Greater than 30% pancreatic necrosis on CT scan [ ]5) Admission hematocrit greater than 47% (0.47) [ ]vi) Organ failure as indicated by ANY ONE of the following: [ ]1) Serum creatinine greater than 1.9 mg/dL (168 micromoles/L) [ ]2) Requirement for mechanical ventilation [ ]3) Urine output less than 50 mL/hour [ ]4) Arterial partial pressure of oxygen less than 60 mm Hg (8.0 kPa) despite supplemental oxygen [ ]5) PiO2/FiO2 ratio less than 300 [ ]vii) Expanding pseudocyst [ ]viii) Infected pancreas [ ]ix) Pleural effusion [ ]x) Encephalopathy [ ]xi) Severe comorbidities [ ]XI. General Surgery diagnoses or procedures, including ANY ONE of the following (9)(24)(37): [ ]a) Acute abdominal catastrophe (eg, ischemic bowel, perforated viscus, abdominal compartment syndrome) [ ]b) Complications of any surgery requiring ICU intervention as indicated by ANY ONE of the following: [ ]i) Hemodynamic instability [ ]ii) [place] with complications (eg, severe arrhythmia, hypotension) [ ]iii) Excessive bleeding or severe coagulopathy [ ]iv) Respiratory failure [ ]v) Renal failure [ ]vi) Airway instability or obstruction [ ]vii) Neurologic deterioration [ ]viii) Infection with likelihood of sepsis syndrome or significant fluid shifts [ ]c) Multiple trauma with complicating features as indicated by ANY ONE of the following(38): [ ]i) Impending acute respiratory failure due to lung contusion, unstable chest wall, aspiration, or hemorrhage [ ]ii) Facial or neck injury threatening airway patency [ ]iii) Cardiac contusion [ ]iv) Pericardial effusion [ ]v) Bronchial tear [ ]vi) Hemodynamic instability [ ]vii) Rhabdomyolisis requiring large volume IV fluid resuscitation [ ]viii)Other significant complicating feature [ ]d) Organ transplant(39)(40) [ ]e) Esophagectomy(31) [ ]f) Whipple procedure [ ]g) Preoperative or postoperative patients requiring ICU intervention, such as hemodynamic optimization, pulmonary artery monitoring, mechanical ventilation, or extensive nursing care [ ]h) Obesity surgery patients with ANY ONE of the following(41): [ ]i) ICU management needs for comorbid conditions, such as sleep apnea or airway management needs [ ]ii) Failed postoperative extubation [ ]iii) Intraoperative complications [ ]XII. Nephrology diagnoses or procedures, including acute, or acute on chronic renal insufficiency with ANY ONE of the following(44)(45): [ ]a) Life-threatening electrolyte or acid-base disorder [ ]b) Acute pulmonary edema [ ]c) Hypotension or significant volume depletion [ ]d) Hypertensive emergency [ ]e) Underlying critical illness contributing to renal failure (eg, septic shock, hepatorenal syndrome) [ ]f) Need for continuous renal replacement therapy [ ]XIII. Neurology diagnoses or procedures, including ANY ONE of the following (46)(47) [B] : [ ]a) Intracranial hypertension requiring ANY ONE of the following(49 ): [ ]i) Induced barbiturate coma [ ]ii) Pharmacologic paralysis or deep sedation and mechanical ventilation [ ]iii) Intracranial pressure or cerebral perfusion pressure monitoring [ ]iv) IV mannitol or hypertonic saline [ ]v) Frequent serum osmolality measurements [ ]b) Seizures with ANY ONE of the following(50): [ ]i) Status epilepticus [ ]ii) Airway compromise requiring or likely to require mechanical ventilation [ ]iii) Severe electrolyte abnormalities causing seizures [ ]c) Progressive acute neurologic dysfunction requiring or likely to require ANY ONE of the following: [ ]i) Mechanical ventilation [ ]ii) Intracranial pressure or cerebral perfusion pressure monitoring [ ]d) Meningitis with obtundation or respiratory insufficiency [C])(51 ) [ ]e) Stroke with ANY ONE of the following(52)(53): [ ]i) Need for observation after thrombolysis [ ]ii) Altered mental status [ ]iii) Need for mechanical ventilation [ ]iv) Elevated intracranial pressure [ ]v) Hypertensive emergency [ ]vi) High risk of progressive infarction or deterioration based on CT scan or MRI [ ]vii) Hemorrhage [ ]f) Acute coma [ ]g) Acute spontaneous intracranial hemorrhage(53)(54) [ ]h) Drug ingestion with ANY ONE of the following(56)(57): [ ]i) Hemodynamic instability [ ]ii) Respiratory depression (partial pressure of carbon dioxide >45 mm Hg (6.0 kPa), new) [ ]iii) Patient requires or is likely to require mechanical ventilation. [ ]iv) Arrhythmias [ ]v) Seizures [ ]vi) Altered mental status (Stephanie coma scale score less than 12, new) [ ]vii) Significant risk for acute deterioration (eg, toxic level of hypotension or arrhythmia-producing drug) [ ]viii) Drug-induced hypothermia or hyperthermia [ ]ix) Increasing metabolic acidosis [ ]x) Severe hypoglycemia requiring glucose infusion with frequent adjustment or glucagon administration [ ]xi) Ongoing antidote administration (eg, continuous naloxone infusion, organophosphate toxicity treatment) [ ]xii) Emergency intervention need (eg, dialysis, hemoperfusion, restraints) [ ]i) Brain with preparation for organ donation [ ]j) Traumatic brain injury with ANY ONE of the following(55): [ ]i) Altered mental status (eg, new onset Stephanie coma scale score less than 10) [ ]ii) Cerebral edema [ ]iii) Cerebral hemorrhage [ ]iv) Increased intracranial pressure [ ]XIV. Neurosurgery diagnoses or procedures, including ANY ONE of the following(49)(58)(59): [ ]a) Emergency craniotomy for tumor, hematoma, or trauma [ ]b) Elective craniotomy for posterior fossa tumor [ ]c) Elective craniotomy (supratentorial) for tumor with ANY ONE of the following: [ ]i) Postoperative neurologic deficit or impaired consciousness 6 hours after completion of procedure [ ]ii) SBP less than 110 mm Hg or greater than 180 mm Hg despite therapy [ ]iii) Extensive operative blood loss [ ]iv) High anesthesia risk (eg, [employer] anesthesiologists score greater than 3 [ ]d) Craniotomy for aneurysm with ANY ONE of the following: [ ]i) Postoperative neurologic deficit or impaired consciousness 6 hours after completion of procedure [ ]ii) Preoperative Lopez-Jarquin grade 3 or higher [ ]iii) SBP less than 110 mm Hg or greater than 180 mm Hg despite therapy [ ]iv) Intracranial pressure monitoring [ ]e) Acute spinal cord injury [ ]f) Subarachnoid hemorrhage [ ]g) Traumatic brain injury with ANY ONE of the following: [ ]i) Acute mental status change ([place] coma scale score less than 10) [ ]ii) CT scan showing cerebral edema or hemorrhage [ ]iii) Intracranial pressure monitoring [ ]h) Complications of any surgery requiring ICU intervention as indicated by ANY ONE of the following(60): [ ]i) Hemodynamic instability [ ]ii) [place] with complications (eg, severe arrhythmia, hypotension) [ ]iii) Excessive bleeding or severe coagulopathy [ ]iv) Respiratory failure [ ] v) Renal failure [ ]vi) Airway instability or obstruction [ ]vii) Neurologic deterioration [ ]viii) Infection with likelihood of sepsis syndrome or significant fluid shifts [ ]i) Preoperative or postoperative patients requiring ICU intervention, such as hemodynamic optimization, pulmonary artery monitoring, mechanical ventilation, or extensive nursing care [ ]XV.Obstetrics and Gynecology diagnoses or procedures, including ANY ONE of the ffg. (61)(62)(63): [ ]a) Severe peripartum condition as indicated by ANY ONE of the following: [ ]i) Eclampsia [ ]ii) Hypertensive emergency [ ]iii) HELLP syndrome (hemolysis, elevated liver enzymes, and low platelet count) [ ]iv) Pulmonary edema [ ]v) Respiratory failure [ ]vi) Pulmonary embolism [ ]vii) Anaphylactoid syndrome of (amniotic fluid embolus) [ ]viii) Ovarian hyperstimulation syndrome [D] [ ]ix) Acute fatty liver of (hepatic failure) [ ]x) Complications such as placental abruption or severe hemorrhage [ ]xi) Sepsis (eg, puerperal sepsis, chorioamnionitis, septic ) [ ]xii) cardiomyopathy with severe congestive heart failure (eg, respiratory failure, cardiogenic shock) [ ]b) Ruptured ectopic [ ]c) Complications of any surgery requiring ICU intervention as indicated by ANY ONE of the following: [ ]i) Hemodynamic instability [ ]ii) [place] with complications (eg, severe arrhythmia, hypotension) [ ]iii) Excessive bleeding or severe coagulopathy [ ]iv) Respiratory failure [ ]v) Renal failure [ ]vi) Airway instability or obstruction [ ]vii) Neurologic deterioration [ ]viii) Infection with likelihood of sepsis syndrome or significant fluid shifts [ ]d) Preoperative or postoperative patients requiring ICU intervention , such as hemodynamic optimization, pulmonary artery monitoring, mechanical ventilation, or extensive nursing care [ ]XVI.Ophthalmology diagnoses or procedures, including ANY ONE of the following (64): [ ]a) Complications of any surgery requiring ICU intervention, such as ANY ONE of the following: [ ]i) Hemodynamic instability [ ]ii) [place] with complications (eg, severe arrhythmia, hypotension) [ ]iii) Excessive bleeding or severe coagulopathy [ ]iv) Respiratory failure [ ]v) Renal failure [ ]vi) Airway instability or obstruction [ ]vii) Neurologic deterioration [ ]viii) Infection with likelihood of sepsis syndrome or significant fluid shifts [ ]b) Preoperative or postoperative patients requiring ICU intervention , such as hemodynamic optimization, pulmonary artery monitoring, mechanical ventilation, or extensive nursing care [ ]XVII.Orthopedics diagnoses or procedures, including ANY ONE of the following [phone]): [ ]a) Complications of any surgery requiring ICU intervention as indicated by ANY ONE of the following: [ ]i) Hemodynamic instability [ ]ii) [place] with complications (eg, severe arrhythmia, hypotension) [ ]iii) Excessive bleeding or severe coagulopathy [ ]iv) Respiratory failure [ ]v) Renal failure [ ]vi) Airway instability or obstruction [ ] vii) Neurologic deterioration [ ]viii) Infection with likelihood of sepsis syndrome or significant fluid shifts [ ]b) Multiple trauma with complicating features as indicated by ANY ONE of the following(38): [ ]i) Impending acute respiratory failure due to lung contusion, unstable chest wall, pneumothorax, aspiration, or hemorrhage [ ]ii) Facial or neck injury threatening airway patency [ ]iii) Cardiac contusion [ ]iv) Rhabdomyolysis requiring large volume IV fluid resuscitation [ ]v) Pericardial effusion [ ]vi) Bronchial tear [ ]vii) Hemodynamic instability [ ]viii) Other significant complicating feature [ ]c) Threatened compartment syndrome [ ]d) Severe lambert with ANY ONE of the following(68)(69)(70): [ ]i) Hypotension or requirement for aggressive fluid resuscitation [ ]ii) Respiratory insufficiency with requirement for high- flow oxygen or mechanical ventilation [ ]iii) Carbon monoxide poisoning [ ]iv) Life-threatening cardiac, renal, pulmonary, or neurologic dysfunction [ ]v) High-voltage (eg, 1000 volts or more) electrical burn [ ]vi) Requirement for frequent or intensive debridement and dressing changes; examples include: [ ]1) Partial thickness lambert greater than 10% of body surface [ ]2) Lambert on face, hands, feet, genitalia, perineum , or major joints [ ]3) Third-degree lambert [ ]4) Any burn greater than 15% of body surface area [ ]vii) Inhalation lung injury [ ]viii) Concomitant trauma or other medical condition requiring ICU care [ ]e) Preoperative or postoperative patients requiring ICU intervention , such as hemodynamic optimization, pulmonary artery monitoring, mechanical ventilation, or extensive nursing care [ ]XVIII.Otolaryngology diagnoses or procedures, including ANY ONE of the following (71)(72): [ ]a) Complications of any surgery requiring ICU intervention as indicated by ANY ONE of the following: [ ]i) Hemodynamic instability [ ]ii) [place] with complications (eg, severe arrhythmia, hypotension) [ ]iii) Excessive bleeding or severe coagulopathy [ ]iv) Respiratory failure [ ]v) Renal failure [ ]vi) Airway instability or obstruction [ ]vii) Neurologic deterioration [ ]viii) Infection with likelihood of sepsis syndrome or significant fluid shifts [ ]b) Airway or hemodynamic compromise that persists after 3 hours of observation in postanesthesia care unit following nasal, palate (eg, uvulopalatopharyngoplasty or palatoplasty), or tongue surgery for sleep apnea [ ]c) Preoperative or postoperative patient requiring ICU intervention, such as hemodynamic optimization, pulmonary artery monitoring, mechanical ventilation, or extensive nursing care [ ]d) Symptomatic upper airway compromise (eg, laryngeal edema, mass) [ ]e) Other airway-compromising procedure (eg, posterior nasal packing) [ ]XIX.Thoracic Surgery and Pulmonary Disease Diagnosis or procedures, including ANY ONE of the following(6): [ ]a) Asthma with ANY ONE of the following(73)(74): [ ]i) Impending or actual respiratory arrest [ ]ii) Need for mechanical ventilation [ ]iii) Peak expiratory flow rate less than 30% of predicted or personal best [ ]iv) Peak expiratory flow rate or FEV1 less than 40% predicted after 1 hour of initial treatment [ ]v) Acidosis [ ]vi) Persistent or worsening hypoxia after initial treatment [ ]vii) Hypercapnia (eg, partial pressure of carbon dioxide greater than 43 mm Hg (5.7 kPa)) [ ]viii) Severe drowsiness, confusion, or coma [ ]ix) Requiring continuous inhaled bronchodilator [ ]b) COPD with ANY ONE of the following(75): [ ]i) Need for assisted ventilation [ ]ii) Hemodynamic instability [ ]iii) Severe dyspnea unresponsive to initial treatment [ ]iv) Change in level of consciousness [ ]v) Persistent findings despite oxygen and outpatient management, including ANY ONE of the following: [ ]1) Partial pressure of oxygen less than 40 mm Hg ( 5.3 kPa) [ ]2) Partial pressure of carbon dioxide greater than 60 mm Hg (8.0 kPa) [ ]3) pH less than 7.25 [ ]4) Worsening hypoxemia or acidosis [ ]c) Cor pulmonale with ANY ONE of the following(75)(76)(77): [ ]i) Hemodynamic instability [ ]ii) Need for IV inotropic or vasoactive agent [ ]iii) Need for invasive hemodynamic monitoring (eg, central venous, pulmonary artery, or arterial catheter) [ ]iv) Hypoxemia with partial pressure of oxygen less than 40 mm Hg (5.3 kPa) [ ]v) Worsening hypoxemia or acidosis despite oxygen therapy [ ]vi) Need for assisted ventilation [ ]vii) Need for right ventricular assist device [ ]viii) Unstable atrial tachyarrhythmia [ ]ix) Need for inhaled nitric oxide [ ]d) Aspiration pneumonia with ANY ONE of the following(78): [ ]i) Acute respiratory distress syndrome (PaO2/FiO2 ratio of 300 or less) [ ]ii) Impending or actual respiratory arrest [ ]iii) Need for invasive or noninvasive mechanical ventilation [ ]e) Pneumocystis jiroveci pneumonia with ANY ONE of the following(79): [ ]i) Impending or actual respiratory arrest [ ]ii) Hypoxia (eg, PO260 mmGh (8.0 kPa) or less despite oxygen therapy) [ ]iii) Need for invasive or noninvasive mechanical ventilation [ ]f) Pneumonia with ANY ONE of the following(80)(81)(82): [ ]i) Need for invasive or noninvasive assisted ventilation [ ]ii) Hemodynamic instability [ ]iii) Severity factors as indicated by 3 or MORE of the following: [ ]1) Respiratory rate 30 breaths per minute or greater [ ]2) PaO2/FiO2 ratio of 250 or less [ ]3) Multilobed infiltrates [ ]4) Altered mental status [ ]5) BUN 20 mg/dL (7.1 mmol/L) or greater [ ]6) WBC count less than 4000/mm3 (4 x109/L) [ ]7) Platelet count <100,000/mm3 (100 x109/L) [ ]8) Temperature less than 36 degrees C (96.8 degrees F ) [ ]9) Hypotension requiring aggressive fluid resuscitation [ ]g) Pulmonary hypertension requiring initiation of parenteral pulmonary vasodilator or trial of inhaled nitric oxide (eg, need for right heart catheterization)(76) [ ]h) Impending respiratory failure as indicated by ANY ONE of the following: [ ]i) Respiratory rate greater than 30 or partial pressure of oxygen less than 60 mm Hg (8.0 kPa) on 50% oxygen or more [ ]ii) Partial pressure of carbon dioxide greater than 45 mm Hg (6.0 kPa) with pH less than 7.35 [X]i) Respiratory failure with ANY ONE of the following (47): [X]i) Need for invasive or noninvasive mechanical ventilation [ ]ii) High likelihood of requiring mechanical ventilation within 24 hours [ ]iii) Observation in the first several hours immediately after extubation from mechanical ventilation [ ]iv) Need for close observation and aggressive therapy, such as suctioning, chest physiotherapy, or inhalation treatments at intervals less than 1 hour [ ]v) Pharmacologic ventilatory paralysis [ ]j) Venous thromboembolism with need for systemic or catheter- directed thrombolysis (eg, for limb-threatening thrombosis, phlegmasia cerulea dolens) (83) [ ]k) Pulmonary embolus with ANY ONE of the following(83): [ ]i) Hypotension [ ]ii) Severe hypoxia [ ]iii) Dangerous arrhythmia [ ]iv) Bleeding [ ]v) Need for systemic or catheter-directed thrombolysis [ ]l) Lobectomy or other major thoracic surgery [ ]m) Lung transplant [ ]n) Symptomatic upper airway obstruction (eg, laryngeal edema, mass) [ ]o) Massive hemoptysis [ ]p) Infection or thrombosis of an intravenous device with ANY ONE of the following(6)(84): [ ]i) Hemodynamic instability [ ]ii) Requirement for frequent hemodynamic measurements [ ]iii) Shock [ ]iv) End organ dysfunction [ ] v) Acute renal failure due to missed dialysis [ ]vi) Unstable acute complication (eg, pericardial tamponade , tension pneumothorax) [ ]q) Traumatic rib fracture or fractures with ANY ONE of the following(85): [ ]i) Injury severity score of 19 or greater [ ]ii) Respiratory insufficiency [ ]iii) Flail chest [ ]iv) Sternum fracture [ ]v) Vascular injury (eg, heart or great vessels) [ ]r) Pleural effusion with ANY ONE of the following(86): [ ]i) Respiratory insufficiency [ ]ii) Hemothorax with active ongoing bleeding [ ]iii) Hemodynamic instability [ ]iv) Unstable comorbid condition (eg, sepsis or heart failure [ ]XX. Urology diagnoses or procedures, including ANY ONE of the following ( 87)(88): [ ]a) Renal transplant [ ]b) Complications of any surgery requiring ICU intervention as indicated by ANY ONE of the following: [ ]i) Hemodynamic instability [ ]ii) [place] with complications (eg, severe arrhythmia, hypotension) [ ]iii) Excessive bleeding or severe coagulopathy [ ]iv) Respiratory failure [ ]v) Renal failure [ ]vi) Airway instability or obstruction [ ]vii) Neurologic deterioration [ ]viii) Infection with likelihood of sepsis syndrome or significant fluid shifts [ ]c) Preoperative or postoperative patients requiring ICU intervention , such as hemodynamic optimization, pulmonary artery monitoring, mechanical ventilation , or extensive nursing care [ ]XXI.Infectious Disease diagnoses or procedures, with ANY ONE of the following (6)(43): [ ]a) Hemodynamic instability [ ]b) Shock [ ]c) Requirement for frequent hemodynamic measurements (eg, arterial catheter, pulmonary artery catheter) [ ]d) Sepsis or suspected sepsis with end organ dysfunction (eg, acute kidney injury, acute respiratory distress syndrome) [ ]e) Necrotizing soft tissue infection [ ] XXII.Hematology - Oncology diagnoses or procedures, including chemotherapy administration with ANY ONE of the following(42): [ ]a) Hemodynamic instability [ ]b) Tumor lysis syndrome with ANY ONE of the following : [ ]1) Acute kidney injury [ ]2) Severe electrolyte abnormality [ ]3) Cardiac dysrhythmia [ ]XXIII. Systemic conditions, including ANY ONE of the following: [ ]a) Severe electrolyte or metabolic disturbance causing or likely to cause ANY ONE of the following(10)(89)(90): [ ]i) Life-threatening cardiac dysrhythmia [ ]ii) Respiratory insufficiency [ ]iii) Altered mental status [ ]iv) Seizures [ ]v) Hemodynamic instability [ ]vi) Muscular weakness [ ]b) Environmental injuries such as hypothermia, hyperthermia, electrical injuries, or near drowning(70)(91)(92) The original [facility] content created by [employer] has been revised. The portions of the content which have been revised are identified through the use of italic text or in bold, and [facility] has neither reviewed nor approved the modified material. All other unmodified content is copyright [facility]. Please see references footnoted in the original [employer] [facility] edition 2016
[2016-04-04] MEDS: Albuterol/Ipratropium Neb 3 ML AERS HHN SCH ×4 (00:55→19:30)
[2016-04-04] MEDS: Sodium Chloride 0.9% 1,000 ML IV SCH (01:14)
--- NOTE | 2016-04-04 02:39 | Progress Notes ---
PROBLEM LIST: 1. Fzina-ql-cdddmei respiratory failure. 2. Acute pneumonia, chronic. 3. 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 4. History of drug abuse in the past. SYMPTOMS: Still see is kind of periodically agitated, restless wants to take ____ from the right hand, though no respiratory distress, etc. PHYSICAL EXAMINATION: VITAL SIGNS: Temperature is 97.6, pulse is about 90-100, blood pressure 121/78 and saturation is about 99-100% on 30% of oxygen on a ventilator ____. ENT: Shows no acute new changes. CHEST: Shows diminished air entry with occasional secretory noise. ABDOMEN: Soft, nontender. EXTREMITIES: Shows no peripheral edema, no cyanosis or clubbing. LABORATORY DATA: White count is 18,000, went slightly up than yesterday and hemoglobin is 10.4 and patient's electrolytes are okay and patient's microbiology shows Staphylococcus MRSA in the sputum and nares ____ cultures are essentially unremarkable. ASSESSMENT: The patient appears to be patchy more left and the right pneumonitis, probably looks like ucufy-[id number] pneumonitis with [id number]-[id number] respiratory failure with history of previous encephalopathy, history of previous illicit drug use. PLANS AND SUGGESTIONS: We will continue current treatment, antibiotic per ID. We will continue current respiratory care, etc and go from there. JOB# [id number]
--- NOTE | 2016-04-04 04:51 | Progress Notes ---
SUBJECTIVE: The patient is in ICU. The patient is on ventilator. The patient is on IV antibiotics. The patient receiving inpatient treatment. The patient is on IV fluids. The patient is awaiting psych evaluation. PHYSICAL EXAMINATION: VITAL SIGNS: Temperature 97.6, pulse 103, blood pressure 121/80, pulse ox 90% on FIO2 of 30%. CARDIOVASCULAR: S1 and S2. RESPIRATORY: Rales. GASTROINTESTINAL: Soft. Positive BS. LABORATORY DATA: Hematology: WBC of 18.1, hemoglobin is 10.4, hematocrit 30.7, platelet count of 434, ESR 76. potassium 3.8, chloride 98, bicarb 27.8, anion gap 9, BUN 7, creatinine 0.3, GFR is 160, glucose 142, calcium 9.9, Microbiology: Sputum culture from 04/01/2016 shows MRSA and screening from 04/01/2016 negative. Urine culture from 04/01/2016 shows yeast. ASSESSMENT: 1. Sepsis. 2. Pneumonia secondary to MRSA. 3. UTI secondary to yeast. 4. Respiratory failure (acute). 5. Ventilator dependent. 6. Dysphagia. 7. Status post PEG. 8. History of alcohol abuse and history of methamphetamine abuse. 9. Bipolar disorder. 10. History of CVA. 11. Left hemiparesis. PLAN: Continue current medication. Obtain labs a.m. Obtain chest x-ray a.m. Awaiting psych consultation. JOB# [id number] [facility]
[2016-04-04 05:15] LABS: MEAN CORPUSCULAR HGB CONC 34.3 pg (28.0-36.0); RED BLOOD COUNT 3.13 Mil/cmm (3.80-5.10)
[2016-04-04 05:25] LABS: HEMATOCRIT 28.2 % (35.0-45.0); HEMOGLOBIN 9.7 gm/dL (11.7-15.5); MEAN CELL VOLUME 90.2 fl (81-100); MEAN CORPUSCULAR HEMOGLOBIN 30.9 pg (27.0-31.0); MEAN PLATELET VOLUME 7.7 fl; PLATELET COUNT 391 Th/cmm (150-400); WHITE BLOOD COUNT 13.3 Th/cmm (4.8-10.8)
[2016-04-04 05:28] LABS: ALB/GLOB RATIO 0.8 (1.0-1.8); ALKALINE PHOSPHATASE 57 U/L (34-104); ANION GAP 8.3 (7.0-16.0); BILIRUBIN,TOTAL 0.5 mg/dL (0.3-1.0); BUN - UREA NITROGEN 7 mg/dL (7-25); BUN/CREATININE RATIO 23.3; CALCIUM SERUM 9.5 mg/dL (8.6-10.3); CARBON DIOXIDE 27.6 mEq/L (21.0-31.0); CHLORIDE 100 mEq/L (98-107); CREATININE - SERUM 0.3 mg/dL (0.6-1.2); GLUCOSE 118 mg/dL (70-105); POTASSIUM SERUM 3.9 mEq/L (3.5-5.1); SGOT 12 U/L (13-39); SGPT/ALT 6 U/L (7-52); SODIUM SERUM 132 mEq/L (136-145)
[2016-04-04 07:01] LABS: ANISOCYTOSIS 1+; BAND NEUTROPHILE 2 % (0-10); EOSINOPHIL 2 % (0-5); NEUTROPHILS 56 % (40-80); PLATELET ESTIMATE ADEQUATE (NORMAL); PLATELET MORPHOLOGY NORMAL (NORMAL); TOTAL CELLS COUNTED 100
[2016-04-04] MEDS: Ipratropium Neb 0.5 mg/2.5 mL UD HHN SCH ×5 (07:34→23:51)
[2016-04-04] MEDS: Budesonide 0.5 Mg/2 mL Ud HHN SCH ×2 (07:34→19:40)
[2016-04-04] MEDS: Potassium Chloride Elixir 20 mEq /15 mL UDC GT SCH (08:11)
[2016-04-04] MEDS: Ferrous Sulfate 300 MG/5 ML UDC GT SCH (08:11)
[2016-04-04] MEDS: Lactobacillus Rhamnosus 10 Billion CFU Capsule PO SCH (08:12)
[2016-04-04] MEDS: Multivitamin w/ Minerals Tab GT SCH (08:13)
[2016-04-04] MEDS: Chlorhexidine Gluconate 0.12% 15mL Mouthwash MM SCH ×2 (08:13→22:56)
--- NOTE | 2016-04-04 10:53 | Diagnostic Imaging Report ---
Portable chest x-ray HISTORY: Pneumonia Compared with prior exam of April 02, 2016, there appears to be faint infiltrate in the left upper lobe. The right apical region is obscured by the patient's overlying head. No other focal processes. IMPRESSION: 1. Questionable infiltrate left upper lobe. Clinical correlation and follow-up recommended.
[2016-04-04] MEDS: Levofloxacin 500mg/100mL 500 MG/100 ML BAG IV SCH (16:16)
[2016-04-04] MEDS: Atorvastatin Calcium 10 MG TAB GT SCH (21:19)
--- NOTE | 2016-04-04 23:44 | Progress Notes ---
Case discussed with staff of the patient, reviewed records. The patient was seen by Dr. Skelton on Monday for a consult. ____At that time, she is in ICU. She is intubated and has tracheostomy. The patient is unable to participate in a meaningful conversation. Apparently, I am not sure if this was an overdose on alcohol or medication. The patient apparently have a history of bipolar disorder; however, she has not been compliant for the last few years and thus, the last time she was hospitalized, the patient is a poor historian, now when Dr. Skelton talked to her, she denied any intent to harm herself or anybody. She denied any auditory or visual hallucination or paranoia; however, she is on Lamictal for bipolar disorder and the patient is homeless. The patient needs to be placed in a safe environment as she is homeless and will continue to follow. I am not sure if this is pneumonia that she suffers with pneumonia____ or she overdosed. Thank you very much for allowing me to participate in the care of this most interesting lady. JOB# [id number]
[2016-04-05] MEDS: Albuterol/Ipratropium Neb 3 ML AERS HHN SCH ×4 (01:39→19:13)
--- NOTE | 2016-04-05 03:35 | Progress Notes ---
PULMONARY PROGRESS NOTE PROBLEM LIST: 1. Acute respiratory failure, chronic. 2. Left upper lobe infiltrate, ? acute on chronic. 3. History of previous cerebrovascular accident, encephalopathy, previous trach, ? ____ ventilator before. SYMPTOMS: Nil complains. Feeling okay. No specific new symptoms. Periodically get agitated, restless. PHYSICAL EXAMINATION: VITAL SIGNS: Temperature is 98.4, blood pressure 96/53. NECK: The patient's ____ trach site appears to be okay. CHEST: Shows occasional rhonchi with diminished air entry. HEART: Regular. ABDOMEN: Soft and nontender. LABORATORY DATA: White count is 13,000 with 12% monocytes and electrolytes are okay, and the patient's sugar is 118. ASSESSMENT: The patient is clinically stable, slightly improved. PLANS AND SUGGESTIONS: We will go ahead and attempt to put mode if it is doable and continue rest of the treatment with MRSA pneumonia and respiratory failure, etc., and go from there. JOB# [id number]
[2016-04-05] MEDS: Ipratropium Neb 0.5 mg/2.5 mL UD HHN SCH ×4 (03:56→16:00)
--- NOTE | 2016-04-05 05:25 | Progress Notes ---
SUBJECTIVE: The patient is in ICU. The patient is on ventilator. The patient is on IV antibiotics. The patient is receiving inpatient treatment. The patient is on IV fluids. The patient is receiving tube feedings. OBJECTIVE: VITAL SIGNS: Temperature 98.4, pulse 77, blood pressure 96/53, respiratory rate 24, O2 sat 100% on FIO2 of 30%. CARDIOVASCULAR: S1, S2. RESPIRATORY: Rales. GASTROINTESTINAL: Soft. Positive bowel sounds. LABORATORY DATA: Hematology: WBC 13.3, hemoglobin 9.7, hematocrit 28.2, platelet count 391, 12% monocytes. ESR is 88. Sodium 132, potassium 3.9, chloride 100, bicarbonate 27, anion gap 8.3, BUN 7, creatinine 0.3. GFR is more than 60. Glucose 118, calcium 9.5, T-bili 0.5, AST 12, ALT 6, alkaline phosphatase 57. C-reactive protein is unavailable. Albumin 6.8, globulin 3.1. Microbiology: Sputum culture from 04/01/2016 shows an MRSA. Urine culture from 04/01/2016 shows yeast. ASSESSMENT: 1. Sepsis. 2. Pneumonia, secondary to methicillin-resistant Staphylococcus aureus. 3. Urinary tract infection, secondary to yeast. 4. Leukocytosis (improved). 5. Anemia. 6. Hyponatremia. 7. Hyperglycemia. 8. Hyperalbuminemia. 9. Respiratory failure (acute). 10. Ventilator dependent. 12. Status post percutaneous endoscopic gastrostomy. 13. Alcohol abuse. 14. Methamphetamine abuse. 15. Bipolar disorder. 16. History of cerebrovascular accident. 17. Left hemiparesis. PLAN: Continue current medication. Continue IV fluids. Continue inpatient treatment. Continue weaning. Further per consults. Awaiting Psychiatry consultation. JOB# [id number] [facility]
[2016-04-05] MEDS: Budesonide 0.5 Mg/2 mL Ud HHN SCH ×2 (07:50→19:13)
[2016-04-05] MEDS: Chlorhexidine Gluconate 0.12% 15mL Mouthwash MM SCH ×2 (08:00→21:51)
[2016-04-05 08:01] LABS: HEMATOCRIT 30.5 % (35.0-45.0); HEMOGLOBIN 10.4 gm/dL (11.7-15.5); MEAN CELL VOLUME 89.1 fl (81-100); MEAN CORPUSCULAR HEMOGLOBIN 30.5 pg (27.0-31.0); MEAN CORPUSCULAR HGB CONC 34.2 pg (28.0-36.0); MEAN PLATELET VOLUME 7.6 fl; PLATELET COUNT 449 Th/cmm (150-400); RED BLOOD COUNT 3.42 Mil/cmm (3.80-5.10); RED CELL DISTRIBUTION WIDTH 15.8 % (11.5-20.0)
[2016-04-05 08:11] LABS: WHITE BLOOD COUNT 28.4 Th/cmm (4.8-10.8)
[2016-04-05 08:14] LABS: BUN - UREA NITROGEN 8 mg/dL (7-25); BUN/CREATININE RATIO 26.7; CALCIUM SERUM 9.7 mg/dL (8.6-10.3); CARBON DIOXIDE 25.8 mEq/L (21.0-31.0); CHLORIDE 97 mEq/L (98-107); CREATININE - SERUM 0.3 mg/dL (0.6-1.2); GLUCOSE 150 mg/dL (70-105); POTASSIUM SERUM 3.8 mEq/L (3.5-5.1); SODIUM SERUM 127 mEq/L (136-145)
[2016-04-05 08:36] LABS: ANISOCYTOSIS 1+; BAND NEUTROPHILE 2 % (0-10); BASOPHIL 1 % (0-3); EOSINOPHIL 1 % (0-5); NEUTROPHILS 69 % (40-80); PLATELET ESTIMATE ADEQUATE (NORMAL); PLATELET MORPHOLOGY NORMAL (NORMAL); TOTAL CELLS COUNTED 100
[2016-04-05] MEDS: Potassium Chloride Elixir 20 mEq /15 mL UDC GT SCH (09:01)
[2016-04-05] MEDS: Lactobacillus Rhamnosus 10 Billion CFU Capsule PO SCH (09:02)
[2016-04-05] MEDS: Multivitamin w/ Minerals Tab GT SCH (09:02)
[2016-04-05] MEDS: Ferrous Sulfate 300 MG/5 ML UDC GT SCH (09:02)
[2016-04-05 10:12] LABS: ABG SOURCE Arterial; ALLEN TEST Positive; HCO3 29.1 mmol/L (20.0-26.0); pH 7.47 (7.35-7.45)
[2016-04-05 10:13] LABS: FIO2 30
[2016-04-05 10:15] LABS: PS 15
[2016-04-05] MEDS: Levofloxacin 500mg/100mL 500 MG/100 ML BAG IV SCH (17:07)
[2016-04-05] MEDS ORDERED: Sodium Chloride 0.9% 1,000 ML IV SCH (19:00)
[2016-04-05] MEDS: Atorvastatin Calcium 10 MG TAB GT SCH (20:29)
[2016-04-06] MEDS: Albuterol/Ipratropium Neb 3 ML AERS HHN SCH ×4 (01:07→19:01)
--- NOTE | 2016-04-06 05:09 | Progress Notes ---
Case was discussed with staff of the patient, reviewed records. Also, met with her sister and mother who reported that the patient has a long history of using alcohol and drugs. She has been homeless for 2 years. can live with them and the patient currently has pneumonia. The patient is unpredictable and impulsive. Continues to need redirection. She is currently on multivitamin and Ativan as needed with no side effects, no sedation, and no nausea. She is on Ativan as well and the patient will be going according to her primary care to subacute when she is done. Because of her current medical condition, she needs a placement after that. Thank you very much for allowing me to participate in the care of this most interesting lady. JOB# [id number]
[2016-04-06 05:13] LABS: HEMATOCRIT 30.3 % (35.0-45.0); HEMOGLOBIN 10.5 gm/dL (11.7-15.5); MEAN CORPUSCULAR HEMOGLOBIN 31.1 pg (27.0-31.0); MEAN CORPUSCULAR HGB CONC 34.5 pg (28.0-36.0); MEAN PLATELET VOLUME 7.8 fl; PLATELET COUNT 408 Th/cmm (150-400); RED BLOOD COUNT 3.37 Mil/cmm (3.80-5.10); RED CELL DISTRIBUTION WIDTH 15.5 % (11.5-20.0)
[2016-04-06 05:29] LABS: ANION GAP 8.2 (7.0-16.0); BUN - UREA NITROGEN 8 mg/dL (7-25); CALCIUM SERUM 9.8 mg/dL (8.6-10.3); CARBON DIOXIDE 27.6 mEq/L (21.0-31.0); CHLORIDE 99 mEq/L (98-107); CREATININE - SERUM 0.2 mg/dL (0.6-1.2); GLUCOSE 117 mg/dL (70-105); POTASSIUM SERUM 3.8 mEq/L (3.5-5.1); SODIUM SERUM 131 mEq/L (136-145)
[2016-04-06 05:30] LABS: WHITE BLOOD COUNT 27.5 Th/cmm (4.8-10.8)
--- NOTE | 2016-04-06 05:30 | Progress Notes ---
PROBLEM LIST: 1. Krcbp-pf-bvcjmks respiratory failure. 2. Pneumonia MRSA. 3. History of previous pneumonia, history of encephalopathy, history of left-sided hemiplegia. SYMPTOMS: Nil. No specific new symptoms. The patient is tolerating the CPAP with pressor support. No specific respiratory distress. PHYSICAL EXAMINATION: VITAL SIGNS: Temperature is 98.5, respiratory rate is 110-120, blood pressure 130/80, saturation is 97% on CPAP with pressor support. NECK: Veins could not be visualized. CHEST: Shows occasional rhonchi with diminished air entry. HEART: Regular. ABDOMEN: Soft and nontender. LABORATORY DATA: The patient's white count is 28,000 jumped up. ABG currently on 30% of oxygen with pressor support and PEEP appears to be okay. ASSESSMENT: The patient clinically tolerating weaning fairly good. Elevated white count, exact etiology is not clearcut with mild degree of electrolyte imbalance. PLANS AND SUGGESTIONS: We will go ahead and try ____ 30% and see how he does, repeat chest x-ray and repeat CBC, etc., and go from there. JOB# [id number]
[2016-04-06] MEDS: Ipratropium Neb 0.5 mg/2.5 mL UD HHN SCH ×5 (07:05→23:08)
[2016-04-06] MEDS: Budesonide 0.5 Mg/2 mL Ud HHN SCH ×2 (07:07→19:02)
[2016-04-06 08:18] LABS: ABG SOURCE Arterial; BE(B) 6.1 mmol/L (-3.0-3.0); FIO2 35; HCO3 31.2 mmol/L (20.0-26.0); pH 7.44 (7.35-7.45)
[2016-04-06] MEDS: Chlorhexidine Gluconate 0.12% 15mL Mouthwash MM SCH ×2 (08:56→21:07)
[2016-04-06] MEDS: Ferrous Sulfate 300 MG/5 ML UDC GT SCH (09:00)
[2016-04-06] MEDS: Lactobacillus Rhamnosus 10 Billion CFU Capsule PO SCH (09:01)
[2016-04-06] MEDS: Multivitamin w/ Minerals Tab GT SCH (09:05)
[2016-04-06] MEDS: Potassium Chloride Elixir 20 mEq /15 mL UDC GT SCH (09:06)
[2016-04-06 09:09] LABS: BAND NEUTROPHILE 7 % (0-10); EOSINOPHIL 1 % (0-5); NEUTROPHILS 66 % (40-80); PLATELET ESTIMATE ADEQUATE (NORMAL); PLATELET MORPHOLOGY NORMAL (NORMAL); TOTAL CELLS COUNTED 100
--- NOTE | 2016-04-06 09:49 | Diagnostic Imaging Report ---
CHEST X-RAY: AP view INDICATION: Pneumonia COMPARISON: 04/04/2016 FINDINGS: Tracheostomy tube is stable. Extensive pulmonary infiltrates are seen with increased since prior exam. Cardiomegaly is noted. IMPRESSION: Extensive pulmonary infiltrates, increased since prior exam.
[2016-04-06] MEDS: Levofloxacin 500mg/100mL 500 MG/100 ML BAG IV SCH (17:33)
[2016-04-06] MEDS: Atorvastatin Calcium 10 MG TAB GT SCH (21:08)
--- NOTE | 2016-04-06 22:44 | Progress Notes ---
SUBJECTIVE: The patient is awake and alert. The patient is on IV antibiotics. The patient is on tube feedings. The patient is on IV fluids. The patient is anxious. PHYSICAL EXAMINATION: VITAL SIGNS: Temperature 98.5, pulse 98, blood pressure 123/70, respiratory rate 19, 97% on FiO2 of 30%. CARDIOVASCULAR: S1 and S2. RESPIRATORY: Rales. ABDOMEN: Soft. Bowel sounds are positive. LABORATORY DATA: Hematology: WBC 28.4, hemoglobin 10.4, hematocrit 30.5, and platelet count 449,000 with 17% lymphocytes. ESR is 49. ABG shows pH 7.4, pCO2 of 40, pO2 of 80, bicarb 29. Blood panel: Sodium 127, potassium 3.8, chloride 97, bicarb 25, anion gap 8, BUN 8, creatinine 0.3. GFR is more than 60. Glucose 150, calcium 9.7, and ammonia level 32, C-reactive protein 11.01, vancomycin trough is 15.8. ASSESSMENT: 1. Leukocytosis (worsening). 2. Anemia. 3. Thrombocytosis. 4. Hyponatremia (worsening). 5. Hyperglycemia. 6. Respiratory failure (acute) status post trach respiratory dependent. 7. Sepsis. 8. Pneumonia secondary to methicillin-resistant Staphylococcus aureus. 9. Urinary tract infection secondary to yeast. 10. History of alcohol abuse. 11. History of methamphetamine abuse. 12. History of cerebrovascular accident. 13. Left hemiparesis. 14. Anxiety. 15. Bipolar disorder. PLAN: Continue current medication. Obtain labs in a.m. We will start the patient on IV Benadryl for anxiety and agitation. We will obtain LTAC eval. Further consults. JOB# [id number] [facility]
--- NOTE | 2016-04-07 00:10 | Progress Notes ---
Case was discussed with staff of the patient, reviewed records. The patient is more alert today, though she is unable to communicate, as she is intubated. I did have her start on folic acid and thiamine yesterday after the family told me that she has been using alcohol and drugs. She is unable to talk and explain what she did. She has been homeless for 2 years. She needs to be going to subacute according to Dr. Kraft and she needs to be seen by a psychiatrist in subacute unit. She is yet unable to talk and currently no side effects with the medications. Thank you very much for allowing me to participate in the care of this most interesting lady. JOB# [id number]
[2016-04-07] MEDS: Ipratropium Neb 0.5 mg/2.5 mL UD HHN SCH ×5 (02:33→23:13)
[2016-04-07 05:18] LABS: HEMOGLOBIN 10.2 gm/dL (11.7-15.5); MEAN CELL VOLUME 88.6 fl (81-100); MEAN CORPUSCULAR HEMOGLOBIN 30.1 pg (27.0-31.0); MEAN CORPUSCULAR HGB CONC 33.9 pg (28.0-36.0); MEAN PLATELET VOLUME 7.6 fl; PLATELET COUNT 424 Th/cmm (150-400); RED BLOOD COUNT 3.39 Mil/cmm (3.80-5.10); RED CELL DISTRIBUTION WIDTH 15.7 % (11.5-20.0)
[2016-04-07 05:30] LABS: WHITE BLOOD COUNT 20.3 Th/cmm (4.8-10.8)
[2016-04-07 05:43] LABS: ANION GAP 10.1 (7.0-16.0); BUN - UREA NITROGEN 9 mg/dL (7-25); CALCIUM SERUM 9.8 mg/dL (8.6-10.3); CHLORIDE 97 mEq/L (98-107); CREATININE - SERUM 0.2 mg/dL (0.6-1.2); GLUCOSE 140 mg/dL (70-105); POTASSIUM SERUM 4.1 mEq/L (3.5-5.1); SODIUM SERUM 133 mEq/L (136-145)
--- NOTE | 2016-04-07 06:30 | Progress Notes ---
PULMONARY PROGRESS NOTE: PROBLEM LIST: 1. Acute respiratory failure. 2. Bilateral pneumonia, most likely it is chronic. 3. MRSA. 4. Severe history of previous encephalopathy. SYMPTOMS: Nil. Tolerating blow-by reasonably well, currently sleepy, no respiratory distress on blow-by. PHYSICAL EXAMINATION: VITAL SIGNS: The patient's temperature is 97-98, blood pressure 121/86 and saturation is in mid 90s on 30%. NECK: Neck veins could not be visualized. Good bilateral carotid upstroke. CHEST: Shows diminished air entry with occasional rhonchi. HEART: Regular. EXTREMITIES: No peripheral edema. ASSESSMENT: The patient clinically tolerated reasonably well blow-by, decent blood gases, electrolytes okay. The patient's white count is still high, 27,000. PLANS AND SUGGESTIONS: Okay to move to the Step-Down Unit. We will continue current treatment. We will follow through chest x-ray, etc., and go from there. JOB# [id number]
[2016-04-07] MEDS: Albuterol/Ipratropium Neb 3 ML AERS HHN SCH ×3 (06:40→19:09)
[2016-04-07] MEDS: Budesonide 0.5 Mg/2 mL Ud HHN SCH ×2 (06:41→19:09)
[2016-04-07] MEDS: Chlorhexidine Gluconate 0.12% 15mL Mouthwash MM SCH ×2 (08:00→20:50)
[2016-04-07] MEDS: Potassium Chloride Elixir 20 mEq /15 mL UDC GT SCH (08:47)
--- NOTE | 2016-04-07 08:47 | Progress Notes ---
SUBJECTIVE: The patient still is in ICU. The patient is on ventilator. The patient is on IV antibiotics. The patient is on IV fluids. PHYSICAL EXAMINATION: VITAL SIGNS: Temperature 100.8, pulse 194, blood pressure 125/82, respiratory rate 36, O2 sat 96%. Oxygen via trach collar. FiO2 of 30%. CARDIOVASCULAR: S1 and S2. RESPIRATORY: Rales. GASTROINTESTINAL: Soft. Bowel sounds are positive. LAB DATA: Hematology: WBC of 27.5, hemoglobin 10.5, hematocrit 30.3, and platelet count of 408. No left shift noted. ESR is more than 140. ABG shows pH of 7.4, pCO2 of 46, pO2 of 88, bicarb 31. Chemistry: Sodium 131, potassium 3.8, chloride 99, bicarb 27, anion gap 8.2. BUN 8, creatinine 0.2. GFR is more than 50. Glucose is 117. Calcium is 9.8. C-reactive protein 30.1. Microbiology: Stool culture from April 01 shows MRSA. MRSA screen from April 01 is negative. Urine culture from April 01 shows yeast. ASSESSMENT: 1. Sepsis. 2. Pneumonia secondary to methicillin-resistant Staphylococcus aureus. 3. Urinary tract infection secondary to yeast. 4. Leukocytosis (improved). 5. Anemia. 6. Respiratory failure (acute). 7. Ventilator dependent. 8. Status post PEG. 9. Dysphagia. 10. Alcohol abuse. 11. Methamphetamine abuse. 12. Bipolar disorder. 13. Cerebrovascular accident. 14. Left hemiparesis. 15. Hyponatremia. 16. Hyperglycemia. 17. Anxiety disorder. PLAN: Continue current medications. Obtain labs in a.m. Continue ventilator management. Further consults. We will increase dosing of Benadryl for anxiety. JOB# [id number] [facility]
[2016-04-07] MEDS: Ferrous Sulfate 300 MG/5 ML UDC GT SCH (08:48)
[2016-04-07] MEDS: Multivitamin w/ Minerals Tab GT SCH (08:48)
[2016-04-07] MEDS: Lactobacillus Rhamnosus 10 Billion CFU Capsule PO SCH (08:48)
--- NOTE | 2016-04-07 09:11 | Diagnostic Imaging Report ---
CHEST X-RAY: AP view INDICATION: Shortness of breath COMPARISON: 04/06/2016 FINDINGS: Diffuse bilateral pulmonary infiltrates are again noted. There is a small left effusion. Tracheostomy tube is stable. IMPRESSION: Persistent diffuse bilateral pulmonary infiltrates.
[2016-04-07 09:23] LABS: ABG SOURCE Arterial; BE(B) 8.7 mmol/L (-3.0-3.0); HCO3 33.5 mmol/L (20.0-26.0); pH 7.47 (7.35-7.45)
[2016-04-07 09:24] LABS: FIO2 40
[2016-04-07 10:09] LABS: BAND NEUTROPHILE 5 % (0-10); EOSINOPHIL 1 % (0-5); NEUTROPHILS 75 % (40-80); TOTAL CELLS COUNTED 100
[2016-04-07 10:10] LABS: PLATELET ESTIMATE ADEQUATE (NORMAL); PLATELET MORPHOLOGY GIANT PLATELETS SEEN (NORMAL)
[2016-04-07] MEDS: Levofloxacin 500mg/100mL 500 MG/100 ML BAG IV SCH (18:13)
[2016-04-07] MEDS: Atorvastatin Calcium 10 MG TAB GT SCH (20:48)
[2016-04-07] MEDS: Albuterol/Ipratropium Neb 3 ML AERS HHN PRN (23:13)
--- NOTE | 2016-04-08 01:34 | Progress Notes ---
Case was discussed with staff of the patient, reviewed records. The patient continues to be on ventilator. She is alert; however, she is able to smile. I did start her on Colace, thiamine, and multivitamin because of her possibility of using heavily alcohol prior to admission. She so far will be going to subacute. No side effects with the medication, no sedation, and no nausea. Thank you very much for allowing me to participate in the care of this most interesting lady. JOB# [id number]
--- NOTE | 2016-04-08 02:36 | Progress Notes ---
PULMONARY PROGRESS NOTE PROBLEMS: 1. . 2. . 3. MRSA. 4. Encephalopathy. 5. Hemiplegia right side with history of previous encephalopathy. SYMPTOMS: Nil. The patient is quite sleepy, barely opens to verbal stimulation. PHYSICAL EXAMINATION: VITAL SIGNS: Currently, saturation is okay on 40%. Temperature is 99.2 and blood pressure 113/82. NECK: Veins could not be visualized. RESPIRATIONS: 20s to low 30s, but no respiratory distress. CHEST: Shows occasional rhonchi with diminished air entry. HEART: Regular. ABDOMEN: Soft and nontender. Chest x-ray, poor quality appears to have some interstitial changes, appears to be not significantly changed. pO2 is 78 on 40% of oxygen. ASSESSMENT: The patient is clinically reasonably stable. PLANS AND SUGGESTIONS: We will go ahead and continue current treatment. We will follow through other studies in the next few days and go from there. JOB# [id number]
[2016-04-08] MEDS: Ipratropium Neb 0.5 mg/2.5 mL UD HHN SCH ×2 (02:50→23:02)
[2016-04-08] MEDS: Albuterol/Ipratropium Neb 3 ML AERS HHN PRN (02:51)
[2016-04-08 07:52] LABS: % BASOPHILS 0.5 % (0.0-2.0); % EOSINOPHILS 1.9 % (0.0-5.0); % LYMPHOCYTES 26.2 % (20.0-50.0); % MONOCYTES 11.1 % (2.0-10.0); % NEUTROPHILS 60.3 % (40.0-80.0); MEAN CELL VOLUME 89.8 fl (81-100); MEAN CORPUSCULAR HEMOGLOBIN 30.4 pg (27.0-31.0); MEAN CORPUSCULAR HGB CONC 33.8 pg (28.0-36.0); MEAN PLATELET VOLUME 7.4 fl; PLATELET COUNT 426 Th/cmm (150-400); RED BLOOD COUNT 2.96 Mil/cmm (3.80-5.10); RED CELL DISTRIBUTION WIDTH 15.7 % (11.5-20.0)
[2016-04-08 08:06] LABS: ALB/GLOB RATIO 0.9 (1.0-1.8); ALKALINE PHOSPHATASE 184 U/L (34-104); ANION GAP 11.1 (7.0-16.0); BILIRUBIN,TOTAL 0.4 mg/dL (0.3-1.0); BUN - UREA NITROGEN 9 mg/dL (7-25); CALCIUM SERUM 9.7 mg/dL (8.6-10.3); CHLORIDE 98 mEq/L (98-107); CREATININE - SERUM 0.2 mg/dL (0.6-1.2); GLUCOSE 134 mg/dL (70-105); POTASSIUM SERUM 4.1 mEq/L (3.5-5.1); SGOT 14 U/L (13-39); SGPT/ALT 11 U/L (7-52); SODIUM SERUM 138 mEq/L (136-145)
[2016-04-08 08:10] LABS: HEMATOCRIT 26.6 % (35.0-45.0)
[2016-04-08] MEDS: Ferrous Sulfate 300 MG/5 ML UDC GT SCH (08:47)
[2016-04-08] MEDS: Potassium Chloride Elixir 20 mEq /15 mL UDC GT SCH (08:47)
[2016-04-08] MEDS: Lactobacillus Rhamnosus 10 Billion CFU Capsule PO SCH (08:48)
[2016-04-08] MEDS: Multivitamin w/ Minerals Tab GT SCH (08:48)
[2016-04-08] MEDS: Albuterol/Ipratropium Neb 3 ML AERS HHN SCH ×3 (09:16→19:18)
[2016-04-08] MEDS: Budesonide 0.5 Mg/2 mL Ud HHN SCH ×2 (09:17→19:18)
[2016-04-08] MEDS: Chlorhexidine Gluconate 0.12% 15mL Mouthwash MM SCH (09:30)
--- NOTE | 2016-04-08 10:14 | Diagnostic Imaging Report ---
Portable chest x-ray HISTORY: Pneumonia Compared with prior exam of April 07, 2016, no significant change in severe diffuse bilateral pulmonary infiltrates. IMPRESSION: 1. No significant change in severe diffuse bilateral infiltrates
[2016-04-08] MEDS: Levofloxacin 500mg/100mL 500 MG/100 ML BAG IV SCH (16:07)
[2016-04-08] MEDS: Atorvastatin Calcium 10 MG TAB GT SCH (21:59)
[2016-04-09] MEDS: Albuterol/Ipratropium Neb 3 ML AERS HHN SCH ×5 (00:56→19:44)
[2016-04-09] MEDS: Ipratropium Neb 0.5 mg/2.5 mL UD HHN SCH ×3 (02:49→14:41)
--- NOTE | 2016-04-09 04:18 | Progress Notes ---
Case was discussed with staff of the patient, reviewed records. The patient is out of ICU, currently in a room. She still has tubes with tracheostomy. She is alert, able to nod her head and answer. She denies any intent to harm herself or anybody. No suicidal ideation. No homicidal ideation. No paranoia. Sleeping better. The patient needs to follow up with her psychiatrist upon discharge and program. Thank you very much for allowing me to participate in the care of this most interesting lady. JOB# [id number]
[2016-04-09] MEDS: Budesonide 0.5 Mg/2 mL Ud HHN SCH ×2 (07:23→19:45)
[2016-04-09 07:51] LABS: % BASOPHILS 0.4 % (0.0-2.0); % EOSINOPHILS 1.5 % (0.0-5.0); % LYMPHOCYTES 26.4 % (20.0-50.0); % MONOCYTES 8.9 % (2.0-10.0); % NEUTROPHILS 62.8 % (40.0-80.0); HEMOGLOBIN 10.1 gm/dL (11.7-15.5); MEAN CORPUSCULAR HGB CONC 33.7 pg (28.0-36.0); MEAN PLATELET VOLUME 7.3 fl; NEUTROPHILE ABSOLUTE 11.6 Th/cmm (1.8-8.0); RED BLOOD COUNT 3.38 Mil/cmm (3.80-5.10); RED CELL DISTRIBUTION WIDTH 15.4 % (11.5-20.0)
[2016-04-09 07:58] LABS: HEMATOCRIT 30.1 % (35.0-45.0); PLATELET COUNT 533 Th/cmm (150-400); WHITE BLOOD COUNT 18.5 Th/cmm (4.8-10.8)
[2016-04-09] MEDS: Ferrous Sulfate 300 MG/5 ML UDC GT SCH (09:22)
[2016-04-09] MEDS: Potassium Chloride Elixir 20 mEq /15 mL UDC GT SCH (09:22)
[2016-04-09] MEDS: Lactobacillus Rhamnosus 10 Billion CFU Capsule PO SCH (09:23)
[2016-04-09] MEDS: Multivitamin w/ Minerals Tab GT SCH (09:25)
[2016-04-09] MEDS: Chlorhexidine Gluconate 0.12% 15mL Mouthwash MM SCH ×2 (09:27→22:38)
--- NOTE | 2016-04-09 13:32 | Progress Notes ---
PROBLEM LIST: 1. Acute on chronic respiratory failure. 2. Bilateral infiltrate, mostly chronic with MRSA. 3. Underlying history of encephalopathy, history of drug abuse, history of left-sided possibly hemiparesis. SYMPTOMS: Nil. ____ sleeping. No respiratory distress, etc. PHYSICAL EXAMINATION: VITAL SIGNS: Temperature is 98.8, blood pressure 160/97. ENT: Shows no new changes. CHEST: Shows clear with occasional secretory noise. ABDOMEN: Soft, nontender. EXTREMITIES: shows no peripheral edema. LABORATORY DATA: The patient's white count is trending down side 15,000 and electrolytes are okay. ASSESSMENT: The patient clinically appears to be stable, improving. PLANS AND SUGGESTIONS: We will go ahead and continue current treatment and vancomycin and other per ID and go from there. JOB# [id number]
[2016-04-09] MEDS: Levofloxacin 500mg/100mL 500 MG/100 ML BAG IV SCH (18:18)
[2016-04-09] MEDS: Atorvastatin Calcium 10 MG TAB GT SCH (21:21)
[2016-04-10] MEDS: Albuterol/Ipratropium Neb 3 ML AERS HHN SCH ×4 (00:34→20:33)
[2016-04-10 06:32] LABS: % BASOPHILS 0.7 % (0.0-2.0); % EOSINOPHILS 3.5 % (0.0-5.0); % LYMPHOCYTES 19.8 % (20.0-50.0); % MONOCYTES 12.5 % (2.0-10.0); % NEUTROPHILS 63.5 % (40.0-80.0); HEMATOCRIT 27.1 % (35.0-45.0); HEMOGLOBIN 9.4 gm/dL (11.7-15.5); MEAN CELL VOLUME 88.9 fl (81-100); MEAN CORPUSCULAR HEMOGLOBIN 30.7 pg (27.0-31.0); MEAN CORPUSCULAR HGB CONC 34.5 pg (28.0-36.0); MEAN PLATELET VOLUME 7.9 fl; NEUTROPHILE ABSOLUTE 9.5 Th/cmm (1.8-8.0); PLATELET COUNT 495 Th/cmm (150-400); RED BLOOD COUNT 3.05 Mil/cmm (3.80-5.10); RED CELL DISTRIBUTION WIDTH 15.7 % (11.5-20.0)
[2016-04-10 07:00] LABS: ANION GAP 11.3 (7.0-16.0); BUN - UREA NITROGEN 10 mg/dL (7-25); BUN/CREATININE RATIO 33.3; CALCIUM SERUM 9.8 mg/dL (8.6-10.3); CARBON DIOXIDE 34.5 mEq/L (21.0-31.0); CHLORIDE 95 mEq/L (98-107); CREATININE - SERUM 0.3 mg/dL (0.6-1.2); GLUCOSE 150 mg/dL (70-105); POTASSIUM SERUM 3.8 mEq/L (3.5-5.1); SODIUM SERUM 137 mEq/L (136-145)
[2016-04-10] MEDS: Budesonide 0.5 Mg/2 mL Ud HHN SCH ×2 (07:03→20:33)
--- NOTE | 2016-04-10 07:22 | Progress Notes ---
Case was discussed with staff on the patient, reviewed records. The patient is more alert. She is still unable to talk. She is intubated. She continues to be unable to ____ very well. Continues to be unable to participate in meaningful conversation, but she nods her head, denies any intent to harm herself or anybody. She is sleeping well. She denies any side effects. She is on Lamictal. The patient needs to follow up with the psychiatrist and a therapist upon discharge. Thank you very much for allowing me to participate in the care of this most interesting lady. JOB# [id number]
--- NOTE | 2016-04-10 07:38 | Progress Notes ---
SUBJECTIVE: The patient has been transferred from ICU to Telemetry Unit. The patient is on oxygen via trach site. The patient is on nebulization treatment. The patient is on tube feedings. The patient is on IV antibiotics. OBJECTIVE: VITAL SIGNS: Temperature 98.9, pulse 122, blood pressure 160/90, respiratory rate 32, O2 saturation 100% on oxygen via trach site. CARDIOVASCULAR: S1 and S2. RESPIRATORY: Rales. GASTROINTESTINAL: Soft, positive bowel sounds. LABORATORY DATA: Hematology: WBC 18.5 with hemoglobin 10.1, hematocrit 30.1, platelet count 533, no left shift noted. No chemistry for today. Microbiology: Sputum culture from 04/01/2016 shows MRSA. MRSA screen from 04/01/2016 negative. Urine culture from 04/01/2016 negative. Blood culture from 04/05/2016 shows no growth. Radiology: Chest x-ray from 04/08/2016 shows no significant change in severe diffuse bilateral infiltrates. ASSESSMENT: 1. Sepsis. 2. Bilateral pneumonia. 3. Respiratory failure (acute). 4. Status post tracheostomy. 5. History of alcohol abuse. 6. History of methamphetamine abuse. 7. History of cerebrovascular accident. 8. History of left hemiparesis. 9. Anxiety. 10. Bipolar disorder. 11. Weakness and debility. 12. Leukocytosis (worsened). 13. Anemia. 14. Thrombocytosis. PLAN: Continue current medications. Obtain labs in a.m. Further recommendations per consults. Awaiting LT[facility] evaluation. JOB# [id number]
--- NOTE | 2016-04-10 09:56 | Diagnostic Imaging Report ---
Portable chest x-ray HISTORY: Shortness of breath Compared with the prior exam of the right 2016, there are persistent diffuse bilateral infiltrates. IMPRESSION: 1. No change in the pulmonary status
[2016-04-10] MEDS: Potassium Chloride Elixir 20 mEq /15 mL UDC GT SCH (10:00)
[2016-04-10] MEDS: Lactobacillus Rhamnosus 10 Billion CFU Capsule PO SCH (10:01)
[2016-04-10] MEDS: Chlorhexidine Gluconate 0.12% 15mL Mouthwash MM SCH ×3 (10:02→22:15)
[2016-04-10] MEDS: Ferrous Sulfate 300 MG/5 ML UDC GT SCH (10:02)
[2016-04-10] MEDS: Multivitamin w/ Minerals Tab GT SCH (10:03)
[2016-04-10] MEDS: Ipratropium Neb 0.5 mg/2.5 mL UD HHN SCH ×3 (11:08→23:10)
--- NOTE | 2016-04-10 14:15 | Progress Notes ---
PROBLEM LIST: 1. Acute on chronic respiratory failure. 2. Mild degree of acute on chronic infiltrate. 3. Previous tracheostomy with previous history of encephalopathy with cerebrovascular accident. SYMPTOMS: Nil. The patient is still periodically agitated, restless. No specific new symptoms. Recently just pulled out the IV fluids, currently on a trach mask, no respiratory distress. PHYSICAL EXAMINATION: VITAL SIGNS: Temperature is 96-97, heart rate is 80s and respirations in low 20s and saturation is 100% on 30% of oxygen. ENT: Shows no new changes. CHEST: Shows occasional rales with diminished air entry. HEART: Regular. Chest x-ray yesterday shows bilateral interstitial changes technically different, but does not look anything major significantly changed. The patient's white count is about 18,000, hemoglobin 10.1. The patient's microbiology so far Staph aureus MRSA for sputum, nothing else identified. PLANS AND SUGGESTIONS: We will continue current treatment. We will repeat chest x-ray in next day or two and see how it is and go from there. JOB# [id number]
[2016-04-10 17:44] LABS: INR 0.99 (0.5-1.4); PROTHROMBIN TIME (TEST) 9.8 SECONDS (9.5-11.5)
[2016-04-10] MEDS: Levofloxacin 500mg/100mL 500 MG/100 ML BAG IV SCH (17:56)
[2016-04-10] MEDS: Atorvastatin Calcium 10 MG TAB GT SCH (22:05)
[2016-04-11] MEDS: Albuterol/Ipratropium Neb 3 ML AERS HHN SCH ×4 (01:11→20:05)
[2016-04-11] MEDS: Ipratropium Neb 0.5 mg/2.5 mL UD HHN SCH ×5 (02:50→23:46)
--- NOTE | 2016-04-11 04:45 | Progress Notes ---
PROBLEM LIST: 1. Kgojf-gc-hkwitjs respiratory failure. 2. Wmswr-pw-oizjqic infiltrate MRSA. 3. Underlying history of encephalopathy with hemiparesis. SYMPTOMS: Nil. No specific new symptoms, coughing and wheezing. Denies ____ chest pain. PHYSICAL EXAMINATION: VITAL SIGNS: Temperature is 98.0, blood pressure 125/93, saturation 100% on 30% cool aerosol mask. NECK: Veins not visualized. CHEST: Shows occasional secretory noise with diminished air entry. HEART: Regular. LABORATORY DATA: White count is trending down to 15 K, hemoglobin 10.4. Electrolytes are okay. ASSESSMENT: The patient is clinically stable, very slowly improving. PLANS AND SUGGESTIONS: We will continue current respiratory care, inhalation treatment, IV antibiotic and go from there. JOB# [id number]
--- NOTE | 2016-04-11 04:46 | Progress Notes ---
Case discussed with staff of the patient. Also, met with her daughter. Apparently, the patient today is hallucinating, seeing a fan on the wall. According to the daughter, the patient had CVA and she has a bed in Acute Facility that was ____ that they want to transfer through a place and close to home. The patient denies any intent to harm herself or anybody. Denies any auditory hallucination, I will be adding Risperdal 0.5 mg twice a day with no side effects and Vistaril as needed because she has been pulling her tubes. She is unpredictable, impulsive and she will go to a nursing facility upon discharge. Thank you very much for allowing me to participate in the care of this most interesting lady. JOB# [id number]
[2016-04-11] MEDS: Budesonide 0.5 Mg/2 mL Ud HHN SCH ×2 (06:34→20:05)
[2016-04-11 07:04] LABS: ANION GAP 7.4 (7.0-16.0); BUN - UREA NITROGEN 9 mg/dL (7-25); CARBON DIOXIDE 34.4 mEq/L (21.0-31.0); CHLORIDE 96 mEq/L (98-107); CREATININE - SERUM 0.3 mg/dL (0.6-1.2); GLUCOSE 147 mg/dL (70-105); POTASSIUM SERUM 3.8 mEq/L (3.5-5.1); SODIUM SERUM 134 mEq/L (136-145)
[2016-04-11 07:44] LABS: % BASOPHILS 0.6 % (0.0-2.0); % EOSINOPHILS 3.1 % (0.0-5.0); % LYMPHOCYTES 27.8 % (20.0-50.0); % NEUTROPHILS 57.5 % (40.0-80.0); HEMATOCRIT 28.2 % (35.0-45.0); HEMOGLOBIN 9.7 gm/dL (11.7-15.5); MEAN CELL VOLUME 88.2 fl (81-100); MEAN CORPUSCULAR HEMOGLOBIN 30.4 pg (27.0-31.0); MEAN CORPUSCULAR HGB CONC 34.5 pg (28.0-36.0); MEAN PLATELET VOLUME 8.1 fl; NEUTROPHILE ABSOLUTE 9.7 Th/cmm (1.8-8.0); PLATELET COUNT 590 Th/cmm (150-400); RED CELL DISTRIBUTION WIDTH 15.9 % (11.5-20.0); WHITE BLOOD COUNT 16.8 Th/cmm (4.8-10.8)
[2016-04-11] MEDS: Ferrous Sulfate 300 MG/5 ML UDC GT SCH (09:21)
[2016-04-11] MEDS: Potassium Chloride Elixir 20 mEq /15 mL UDC GT SCH (09:21)
[2016-04-11] MEDS: Lactobacillus Rhamnosus 10 Billion CFU Capsule PO SCH (09:22)
[2016-04-11] MEDS: Multivitamin w/ Minerals Tab GT SCH (09:23)
--- NOTE | 2016-04-11 10:07 | Progress Notes ---
SUBJECTIVE: The patient is awake, alert. The patient is on oxygen via trach site. The patient is on IV antibiotics. The patient received inpatient rehab therapy. OBJECTIVE: VITAL SIGNS: Temperature is 98.5, pulse 91, blood pressure 120/70, respirations 28, was 100% on oxygen via trach site. CARDIOVASCULAR: S1 and S2. RESPIRATORY: Rales. GASTROINTESTINAL: Soft, bowel sounds present. DIAGNOSTIC STUDIES: Labs on the patient is hematology, WBC 15, hemoglobin 9.4, hematocrit 27.1, platelet count 495, 19% lymphocytes, 12% monocytes. Chemistry, sodium 137, potassium 3.8, chloride 95, bicarbonate 24, anion gap 11, BUN 10, creatinine 0.3, GFR is more than 60, glucose 150, calcium 9.8, vancomycin trough is 12.1. Microbiology, sputum culture from 04/01 shows MRSA. MRSA screen from 04/01 negative. Urine culture on 04/01 shows yeast. Blood culture from 04/05 shows no growth. ASSESSMENT: 1. Sepsis. 2. Pneumonia secondary to MRSA. 3. Urinary tract infection secondary to yeast. 4. Respiratory failure (acute). 5. Status post trach. 6. Alcohol abuse. 7. Methamphetamine abuse. 8. Cerebrovascular accident. 9. Left hemiparesis. 10. Anxiety. 11. Bipolar disorder. 12. Weakness and debility. 13. Leukocytosis. 14. Anemia. 15. Thrombocytosis. 16. Hyperglycemia PLAN: Continue current medications. Obtain labs in a.m. Obtain chest x-ray. Further consults. Thank you very much. JOB# [id number] AMY
[2016-04-11] MEDS: Chlorhexidine Gluconate 0.12% 15mL Mouthwash MM SCH ×2 (10:15→20:26)
--- NOTE | 2016-04-11 12:06 | Diagnostic Imaging Report ---
Portable chest x-ray HISTORY: Pneumonia Compared with prior exam of April 10, 2016, there is persistent infiltrate within the left lower lobe. Questionable hazy infiltrate in the right lung. IMPRESSION: 1. Little change in the cardiopulmonary status as noted above.
[2016-04-11] MEDS: Levofloxacin 500mg/100mL 500 MG/100 ML BAG IV SCH (16:37)
[2016-04-11] MEDS: Atorvastatin Calcium 10 MG TAB GT SCH (20:27)
--- NOTE | 2016-04-12 03:04 | Progress Notes ---
Case discussed with staff of the patient, reviewed records. The patient reports she continues to ____ on the wall, but she denies any auditory or visual hallucination. She is sleeping well, eating well. She denies any current intent to harm herself or anybody. No side effects of the medications, has had her on Risperdal and denies any auditory hallucinations. No side effects with the medication, no sedation, no extrapyramidal symptoms. Thank you very much for allowing me to participate in the care of this most interesting lady. JOB# [id number]
[2016-04-12] MEDS: Albuterol/Ipratropium Neb 3 ML AERS HHN SCH ×4 (03:56→19:04)
[2016-04-12] MEDS: Ipratropium Neb 0.5 mg/2.5 mL UD HHN SCH ×3 (03:56→20:50)
[2016-04-12 05:42] LABS: % BASOPHILS 0.7 % (0.0-2.0); % EOSINOPHILS 3.1 % (0.0-5.0); % MONOCYTES 11.4 % (2.0-10.0); % NEUTROPHILS 60.8 % (40.0-80.0); HEMATOCRIT 28.3 % (35.0-45.0); HEMOGLOBIN 9.5 gm/dL (11.7-15.5); MEAN CELL VOLUME 87.6 fl (81-100); MEAN CORPUSCULAR HEMOGLOBIN 29.5 pg (27.0-31.0); MEAN CORPUSCULAR HGB CONC 33.7 pg (28.0-36.0); MEAN PLATELET VOLUME 7.5 fl; NEUTROPHILE ABSOLUTE 11.2 Th/cmm (1.8-8.0); PLATELET COUNT 615 Th/cmm (150-400); RED BLOOD COUNT 3.23 Mil/cmm (3.80-5.10); RED CELL DISTRIBUTION WIDTH 16.5 % (11.5-20.0); WHITE BLOOD COUNT 18.4 Th/cmm (4.8-10.8)
[2016-04-12 06:11] LABS: ANION GAP 7.1 (7.0-16.0); BUN - UREA NITROGEN 9 mg/dL (7-25); CARBON DIOXIDE 34.6 mEq/L (21.0-31.0); CHLORIDE 95 mEq/L (98-107); CREATININE - SERUM 0.3 mg/dL (0.6-1.2); GLUCOSE 131 mg/dL (70-105); POTASSIUM SERUM 3.7 mEq/L (3.5-5.1); SODIUM SERUM 133 mEq/L (136-145)
[2016-04-12] MEDS: Budesonide 0.5 Mg/2 mL Ud HHN SCH ×2 (07:41→19:04)
--- NOTE | 2016-04-12 08:31 | Progress Notes ---
SUBJECTIVE: The patient is on oxygen via trach site. The patient is on IV antibiotics. The patient received inpatient ____ treatment. The patient received inpatient rehab therapy. The patient is on tube feedings. The patient is on IV fluids. OBJECTIVE: VITAL SIGNS: Temperature 98.5, pulse is 71, blood pressure 127/76, respiratory rate 19, O2 sat 100% on trach collar, FiO2 of 40%. CARDIOVASCULAR: S1, S2. RESPIRATORY: Rales. GASTROINTESTINAL: Soft, positive bowel sounds. LABORATORY STUDIES: Labs done on the patient is hematology, WBC of 16.8, hemoglobin 9.7, hematocrit 28.2, platelet count of 590, 11% monocytes, ESR is more than 140. Chemistry, sodium 134, potassium 3.8, chloride ____, bicarbonate 34, anion gap 7.4, BUN 9, creatinine 0.3, GFR is more than 60, glucose 147, calcium is 8.0, C-reactive protein 5.0. Microbiology: Sputum culture from April 01 shows MRSA. MRSA screen from April 01 negative. Urine culture from April 01 shows yeast and blood culture from April 05 negative. Chest x-ray from April 11 shows no change in cardiopulmonary status, persistent infiltrate, left lower lobe, questionable hazy infiltrate in right lung. ASSESSMENT: 1. Sepsis. 2. Pneumonia secondary to MRSA. 3. Urinary tract infection secondary to yeast. 4. Respiratory failure (acute). 5. Status post trach. 6. History of alcohol abuse. 7. History of methamphetamine abuse. 8. Cerebrovascular accident. 9. Left hemiparesis. 10. Anxiety. 11. Bipolar disorder. 12. ____. 13. Leukocytosis. 14. Anemia. 15. Thrombocytosis. 16. Hyponatremia. 17. Hyperglycemia. PLAN: Continue current medication. Obtain labs in a.m. Follow recommendations per consult. JOB# [id number]
[2016-04-12] MEDS: Multivitamin w/ Minerals Tab GT SCH (08:56)
[2016-04-12] MEDS: Ferrous Sulfate 300 MG/5 ML UDC GT SCH (08:56)
[2016-04-12] MEDS: Lactobacillus Rhamnosus 10 Billion CFU Capsule PO SCH (08:56)
[2016-04-12] MEDS: Chlorhexidine Gluconate 0.12% 15mL Mouthwash MM SCH ×2 (08:57→21:31)
[2016-04-12] MEDS: Potassium Chloride Elixir 20 mEq /15 mL UDC GT SCH (08:57)
[2016-04-12] MEDS: Levofloxacin 500mg/100mL 500 MG/100 ML BAG IV SCH (17:22)
[2016-04-12] MEDS: Atorvastatin Calcium 10 MG TAB GT SCH (21:29)
[2016-04-13] MEDS: Albuterol/Ipratropium Neb 3 ML AERS HHN SCH ×4 (00:56→20:17)
[2016-04-13] MEDS: Ipratropium Neb 0.5 mg/2.5 mL UD HHN SCH (02:47)
--- NOTE | 2016-04-13 06:04 | Progress Notes ---
Case was discussed with staff of the patient, reviewed records. The patient is on one-to-one because she keeps pulling her IV. She is on Risperdal, tolerated it. She is no longer ____. Sleeping better and eating better. She denies any current intent to harm herself or anyone. She denies any hallucination or paranoia. I would recommend continue the same treatment. Thank you very much for allowing me to participate in care of this most interesting lady. JOB# [id number]
[2016-04-13 07:01] LABS: ANION GAP 9.8 (7.0-16.0); BUN - UREA NITROGEN 11 mg/dL (7-25); BUN/CREATININE RATIO 36.7; CALCIUM SERUM 9.8 mg/dL (8.6-10.3); CARBON DIOXIDE 34.4 mEq/L (21.0-31.0); CHLORIDE 94 mEq/L (98-107); CREATININE - SERUM 0.3 mg/dL (0.6-1.2); GLUCOSE 122 mg/dL (70-105); POTASSIUM SERUM 4.2 mEq/L (3.5-5.1); SODIUM SERUM 134 mEq/L (136-145)
[2016-04-13 07:08] LABS: HEMATOCRIT 29.5 % (35.0-45.0); HEMOGLOBIN 10.2 gm/dL (11.7-15.5); MEAN CELL VOLUME 88.3 fl (81-100); MEAN CORPUSCULAR HEMOGLOBIN 30.4 pg (27.0-31.0); MEAN CORPUSCULAR HGB CONC 34.4 pg (28.0-36.0); MEAN PLATELET VOLUME 7.6 fl; PLATELET COUNT 678 Th/cmm (150-400); RED BLOOD COUNT 3.35 Mil/cmm (3.80-5.10); RED CELL DISTRIBUTION WIDTH 16.2 % (11.5-20.0); WHITE BLOOD COUNT 18.7 Th/cmm (4.8-10.8)
[2016-04-13] MEDS: Budesonide 0.5 Mg/2 mL Ud HHN SCH (07:20)
[2016-04-13 08:44] LABS: BAND NEUTROPHILE 4 % (0-10); EOSINOPHIL 3 % (0-5); NEUTROPHILS 60 % (40-80); TOTAL CELLS COUNTED 100
[2016-04-13] MEDS: Multivitamin w/ Minerals Tab GT SCH (08:53)
[2016-04-13] MEDS: Lactobacillus Rhamnosus 10 Billion CFU Capsule PO SCH (08:53)
[2016-04-13] MEDS: Ferrous Sulfate 300 MG/5 ML UDC GT SCH (08:54)
[2016-04-13] MEDS: Potassium Chloride Elixir 20 mEq /15 mL UDC GT SCH (08:55)
[2016-04-13] MEDS: Chlorhexidine Gluconate 0.12% 15mL Mouthwash MM SCH (09:00)
[2016-04-13] MEDS: Levofloxacin 500mg/100mL 500 MG/100 ML BAG IV SCH (16:49)
--- NOTE | 2016-04-13 17:59 | Progress Notes ---
PULMONARY PROGRESS NOTE: PROBLEM LIST: 1. Persistent chronic respiratory failure. 2. Mild degree of pulmonary fibrosis. 3. Acute methicillin-resistant Staphylococcus aureus pneumonia. SYMPTOMS: Nil. The patient gets periodic fidgety, restless and trying to pull the tubes out. No specific new symptoms. Has some bronchorrhea periodically from the trach. PHYSICAL EXAMINATION: VITAL SIGNS: Temperature is 98.7, blood pressure 120/80, saturation 100% on 40% of trach collar. CHEST: Shows occasional rhonchi with diminished air entry. HEART: Regular. LABORATORY DATA: Chest x-ray shows some patchy haziness area, indicative with loss of lung volume, indicative of lot of edematous chronic changes. ASSESSMENT: The patient is clinically stable. PLANS AND SUGGESTIONS: We will go ahead and continue current treatment and await for ID to finish the course of antibiotics and go from there. JOB# [id number]
--- NOTE | 2016-04-13 18:24 | Progress Notes ---
PULMONARY PROGRESS NOTE PROBLEM LIST: 1. Acute on chronic respiratory failure. 2. Bilateral interstitial pneumonia, chronic with MRSA sputum and resolved acute respiratory . 3. Underlying history of psychosis with history of hemiplegia. SYMPTOMS: Nil. Feeling okay, tried to pull the periodically. No respiratory distress, etc. PHYSICAL EXAMINATION: VITAL SIGNS: Temperature is 97, blood pressure 150/78, and saturation 95% on 40% of oxygen. ASSESSMENT: The patient clinically appears to be stable and improving. PLANS AND SUGGESTIONS: We will go ahead and continue current treatment. From respiratory point, we are okay to transfer to contracted hospital and/or her previous position. We will leave antibiotic per ID recommendation and go from there. JOB# [id number]
[2016-04-13] MEDS: Atorvastatin Calcium 10 MG TAB GT SCH (21:25)
--- NOTE | 2016-04-13 23:51 | Progress Notes ---
SUBJECTIVE: The patient is awake and alert. The patient is on oxygen via trach site. The patient is on IV antibiotics. The patient is receiving inpatient rehab therapy. OBJECTIVE: VITAL SIGNS: Temperature 98.7, pulse 91, blood pressure 137/84, respiratory rate 20, and O2 sat is 99% on FiO2 of 40%. CARDIOVASCULAR: S1 and S2. RESPIRATORY: A few rales. GASTROINTESTINAL: Soft. Positive bowel sounds. LABORATORY DATA: Hematology: WBC 18.4, hemoglobin 9.5, hematocrit 28.3, and platelet count of 615, monocytes 11%. ESR is 87. Chemistry: Sodium 136, bicarb 34, anion gap 7.1. BUN 9, creatinine 0.3. GFR is more than 60. Glucose 131. Calcium is 10. C-reactive protein is 30.8. Vancomycin trough is 15.8. Microbiology: MRSA screen from 04/01/2016 is negative. Sputum culture from 04/01/2016 shows MRSA. Urine culture from 04/01/2016 is negative. Blood culture from 04/05/2016 is negative. ASSESSMENT: 1. Sepsis. 2. Pneumonia secondary to methicillin-resistant Staphylococcus aureus. 3. Urinary tract infection secondary to yeast. 4. Respiratory failure (acute). 5. Status post trach. 6. Dysphagia. 7. Alcohol abuse. 8. Methamphetamine abuse. 9. Cerebrovascular accident. 11. Anxiety. 12. Bipolar disorder. 13. Leukocytosis. 14. Anemia. 15. Hyponatremia. 16. Hyperglycemia. PLAN: Continue current medication. Obtain labs in a.m. Further consults. JOB# [id number] [facility]
[2016-04-14] MEDS: Albuterol/Ipratropium Neb 3 ML AERS HHN SCH ×4 (01:00→19:24)
--- NOTE | 2016-04-14 01:06 | Cardiology ---
ECHOCARDIOGRAM REFERRING PHYSICIAN: Chacorta Gupta M.D. M-MODE MEASUREMENTS: Aortic root dimension in end diastole is 2.3 cm. Aortic valve systolic separation is 2.1 cm. Left atrium dimension in end systole is 2.4 cm. EP septal separation is 0.35 cm. Mitral valve E to A ration is 1.28. LV dimension in end diastole is 3.52 cm and end systole is 2.14 cm with ejection fraction of 65% to 70%. Interventricular septal thickness in end diastole is 1.2 cm and LV posterior wall thickness in end diastole is 1 cm. The Doppler and color Doppler show that the tricuspid Vmax is 1.63 meter per second. Right ventricular systolic pressure is limited and could not be obtained, but other measurements could not be obtained because the technical difficulty being on the ventilator. However, the RVSP is 20.6 mmHg. M-Mode and 2D show that LV dimension and second wall motion are normal. No pericardial effusion present. All the chambers are normal in dimension. All the valves are normal in thickness and motion in end diastole as well as end systole. CONCLUSION: 1. Technically difficult echocardiogram. 2. LV dimension and second wall motion are normal with ejection fraction of 65% to 70%. 3. Mild interventricular septal thickness, possible normal. 4. There is mild mitral valve regurgitation and pulmonic regurgitation. significant. There may be normal variation. 5. Normal study for the age. JOB# [id number] MTDArabella
[2016-04-14 05:44] LABS: % BASOPHILS 0.7 % (0.0-2.0); % EOSINOPHILS 3.7 % (0.0-5.0); % LYMPHOCYTES 28.2 % (20.0-50.0); % NEUTROPHILS 54.4 % (40.0-80.0); HEMATOCRIT 30.5 % (35.0-45.0); HEMOGLOBIN 10.5 gm/dL (11.7-15.5); MEAN CELL VOLUME 88.6 fl (81-100); MEAN CORPUSCULAR HEMOGLOBIN 30.4 pg (27.0-31.0); MEAN CORPUSCULAR HGB CONC 34.4 pg (28.0-36.0); NEUTROPHILE ABSOLUTE 8.8 Th/cmm (1.8-8.0); PLATELET COUNT 654 Th/cmm (150-400); RED BLOOD COUNT 3.45 Mil/cmm (3.80-5.10); RED CELL DISTRIBUTION WIDTH 16.5 % (11.5-20.0); WHITE BLOOD COUNT 16.2 Th/cmm (4.8-10.8)
[2016-04-14 05:55] LABS: ANION GAP 3.5 (7.0-16.0); BUN - UREA NITROGEN 12 mg/dL (7-25); CARBON DIOXIDE 36.8 mEq/L (21.0-31.0); CHLORIDE 95 mEq/L (98-107); CREATININE - SERUM 0.3 mg/dL (0.6-1.2); GLUCOSE 105 mg/dL (70-105); POTASSIUM SERUM 4.3 mEq/L (3.5-5.1); SODIUM SERUM 131 mEq/L (136-145)
--- NOTE | 2016-04-14 06:26 | Progress Notes ---
Case was discussed with staff of the patient, reviewed records. The patient ____ seems to be showing progress. She is on 1:1, so she would not pull her IVs. She reports sometimes she sees a fan, but no auditory hallucination, no command hallucinations. No suicidal ideation or homicidal ideation. Sleeping well. Eating well. Responding well to redirection. She is on Risperdal with no side effects, no sedation, no nausea, no extrapyramidal symptoms. As of today, Dr. Gomez and Dr. Ramirez will cover for me and if she is discharged, needs to follow up with the psychiatrist upon discharge. Thank you very much for allowing me to participate in the care of this most interesting lady. JOB# [id number]
--- NOTE | 2016-04-14 06:55 | Progress Notes ---
SUBJECTIVE: The patient is awake and alert. The patient is on oxygen via trach site. The patient is on IV antibiotics. The patient received inpatient neb treatment. The patient is on tube feedings. OBJECTIVE: VITAL SIGNS: Temperature 98.3, pulse 95, blood pressure 125/72, respirations 18, O2 saturation 100% on oxygen via trach site. CARDIOVASCULAR: S1, S2. RESPIRATORY: Rale. GASTROINTESTINAL: Soft, positive bowel sounds. Labs on the patient is hematology, WBC 18.7, hemoglobin 10.2, hematocrit 29.5, platelet count of 678. ESR 78. Chemistry, sodium 134, bicarbonate 34, anion gap 9.8, BUN 11, creatinine 0.3, GFR is more than 60, glucose 122, calcium 9.8. MICROBIOLOGY: Sputum culture of April 01 shows MRSA, MRSA screen April 01 negative. Urine culture from April 01 shows yeast and blood culture from April 05 negative. RADIOLOGICAL TESTS: No new radiology test. ASSESSMENT: 1. Sepsis. 2. Pneumonia secondary to MRSA. 3. Urinary tract infection secondary to yeast. 4. Respiratory failure (acute) status post trach. 5. History of alcohol abuse and methamphetamine abuse. 6. Cerebrovascular accident. 7. Anxiety. 8. Bipolar disorder. 9. Leukocytosis. 10. Anemia. 11. Thrombocytosis. 12. Hyponatremia. 13. Hyperglycemia. 14. Weakness and debility. PLAN: Continue current medications. Obtain labs a.m. Continue weaning off oxygenation. business segment manager will arrange for subacute placement. Further recommendations per consult. JOB# [id number] AMY
--- NOTE | 2016-04-14 06:58 | Progress Notes ---
PULMONARY PROGRESS NOTE: PROBLEM LIST: 1. Acute on chronic pneumonia. 2. Respiratory failure, chronic. 3. MRSA. SYMPTOMS: Nil. Feeling okay, still a kind of getting fidgety periodically, trying to pull the tubes, etc., out. PHYSICAL EXAMINATION: GENERAL: Not in any acute distress. VITAL SIGNS: Temperature is 98.3, blood pressure 125/72, saturation 100% on 40% of oxygen. NECK: Neck veins could not be visualized. CHEST: Shows occasional rhonchi with diminished air entry. HEART: Regular. EXTREMITIES: Show no peripheral edema. PHYSICAL SCIENCE PROFESSOR: No change. LABORATORY DATA: White count is 18.7 and electrolytes are okay. ASSESSMENT: The patient is clinically stable respiratory acosta. PLANS AND SUGGESTIONS: Discussed with the speech therapist to see if they can get a PMV followup if possible and also discussed with RT for possibly trach mask, so chances of pulling trach itself be very minimal. In the meantime, continue rest of other treatment. JOB# [id number]
[2016-04-14] MEDS: Budesonide 0.5 Mg/2 mL Ud HHN SCH ×2 (08:09→19:24)
[2016-04-14] MEDS: Chlorhexidine Gluconate 0.12% 15mL Mouthwash MM SCH (09:00)
[2016-04-14] MEDS: Ferrous Sulfate 300 MG/5 ML UDC GT SCH (09:38)
[2016-04-14] MEDS: Lactobacillus Rhamnosus 10 Billion CFU Capsule PO SCH (09:39)
[2016-04-14] MEDS: Multivitamin w/ Minerals Tab GT SCH (09:39)
[2016-04-14] MEDS: Potassium Chloride Elixir 20 mEq /15 mL UDC GT SCH (09:39)
[2016-04-14] MEDS: Levofloxacin 500mg/100mL 500 MG/100 ML BAG IV SCH (19:08)
[2016-04-14] MEDS: Ipratropium Neb 0.5 mg/2.5 mL UD HHN SCH ×2 (19:23→23:23)
[2016-04-14] MEDS: Atorvastatin Calcium 10 MG TAB GT SCH (20:57)
[2016-04-15] MEDS: Ipratropium Neb 0.5 mg/2.5 mL UD HHN SCH ×5 (03:12→23:15)
[2016-04-15] MEDS: Albuterol/Ipratropium Neb 3 ML AERS HHN SCH ×3 (03:13→19:19)
[2016-04-15] MEDS: Budesonide 0.5 Mg/2 mL Ud HHN SCH ×2 (07:32→19:17)
[2016-04-15 08:39] LABS: % BASOPHILS 0.4 % (0.0-2.0); % EOSINOPHILS 2.5 % (0.0-5.0); % LYMPHOCYTES 33.2 % (20.0-50.0); % MONOCYTES 12.4 % (2.0-10.0); % NEUTROPHILS 51.5 % (40.0-80.0); HEMATOCRIT 29.1 % (35.0-45.0); HEMOGLOBIN 9.9 gm/dL (11.7-15.5); MEAN CELL VOLUME 87.9 fl (81-100); MEAN CORPUSCULAR HGB CONC 34.1 pg (28.0-36.0); MEAN PLATELET VOLUME 7.2 fl; NEUTROPHILE ABSOLUTE 7.1 Th/cmm (1.8-8.0); PLATELET COUNT 674 Th/cmm (150-400); RED BLOOD COUNT 3.31 Mil/cmm (3.80-5.10); RED CELL DISTRIBUTION WIDTH 16.7 % (11.5-20.0); WHITE BLOOD COUNT 13.8 Th/cmm (4.8-10.8)
[2016-04-15 09:01] LABS: ANION GAP 9.8 (7.0-16.0); BUN - UREA NITROGEN 12 mg/dL (7-25); CALCIUM SERUM 10.1 mg/dL (8.6-10.3); CARBON DIOXIDE 33.1 mEq/L (21.0-31.0); CHLORIDE 94 mEq/L (98-107); CREATININE - SERUM 0.4 mg/dL (0.6-1.2); GLUCOSE 102 mg/dL (70-105); POTASSIUM SERUM 3.9 mEq/L (3.5-5.1); SODIUM SERUM 133 mEq/L (136-145)
[2016-04-15] MEDS: Ferrous Sulfate 300 MG/5 ML UDC GT SCH (09:05)
[2016-04-15] MEDS: Lactobacillus Rhamnosus 10 Billion CFU Capsule PO SCH (09:06)
[2016-04-15] MEDS: Potassium Chloride Elixir 20 mEq /15 mL UDC GT SCH (09:06)
[2016-04-15] MEDS: Multivitamin w/ Minerals Tab GT SCH (09:07)
--- NOTE | 2016-04-15 09:19 | Progress Notes ---
PULMONARY PROGRESS NOTE PROBLEM LIST: 1. Acute on chronic pneumonia. 2. Methicillin-resistant Staphylococcus aureus. 3. Encephalopathy, chronic. There was also left hemiplegia with tracheostomy. SYMPTOMS: Nil. She is behaving good. No specific new symptoms. She still secretions. PHYSICAL EXAMINATION: VITAL SIGNS: Temperature is 97.7, blood pressure 121/71, respirations 18, saturation 40% okay. NECK: Veins not visualized. CHEST: Shows occasional rhonchi with diminished air entry. HEART: Regular. ABDOMEN: Soft and nontender. LABORATORY DATA: White count is trending down to the 16.2. Electrolytes are okay with sodium 131. ASSESSMENT: The patient clinically appears to be reasonably stable. PLANS AND SUGGESTIONS: We will go ahead and continue current treatment. I discussed with Dr. Gupta yesterday and will go from there. JOB# [id number]
--- NOTE | 2016-04-15 10:33 | Diagnostic Imaging Report ---
CHEST X-RAY: AP view INDICATION: Pneumonia COMPARISON: 04/11/2016 FINDINGS: Tracheostomy tube is stable. Hazy bilateral infiltrates are again noted with small left effusion without significant change. IMPRESSION: No significant change in bilateral hazy infiltrates.
[2016-04-15] MEDS: Levofloxacin 500mg/100mL 500 MG/100 ML BAG IV SCH (17:30)
--- NOTE | 2016-04-15 19:47 | Progress Notes ---
SUBJECTIVE: The patient is awake, alert. The patient is on oxygen via trach site. The patient is receiving inpatient treatment. The patient is receiving inpatient rehab therapy. The patient is on IV antibiotics. The patient has a sitter by bedside. The patient is on IV fluids. PHYSICAL EXAMINATION: VITAL SIGNS: Temperature is 97.7, pulse 81, blood pressure per nursing, respirations 18, O2 sat 98% via trach collar FiO2 40%. CARDIOVASCULAR: S1 and S2. RESPIRATORY: Rales. GASTROINTESTINAL: Soft. Bowel sounds are positive. LABORATORY DATA: Hematology: WBC of 16.2, hemoglobin 10.5, hematocrit 30.5, platelet count of 464 with 13% monocytes and ESR is 114. Chemistry: Sodium is 131, potassium 4.3, chloride 95, bicarbonate 36, BUN 12, creatinine 0.3, GFR is more 60, glucose 105. Calcium 10, C-reactive protein 2.2. MICROBIOLOGY: Sputum culture from 04/01/2016 shows MRSA. MRSA screen 04/01/2016 negative. Urine culture from 04/01/2016 shows yeast. Blood culture from 04/05/2016 negative. ASSESSMENT: 1. Sepsis. 2. Pneumonia secondary to methicillin-resistant Staphylococcus aures. 3. Urinary tract infection secondary to yeast. 4. Leukocytosis. 5. Anemia. 6. Thrombocytosis. 7. Hyponatremia. 8. History of alcohol abuse 9. History of methamphetamine abuse. 10. History of suicidal ideation 11. Status post trach. 12. Cerebrovascular accident. 13. Anxiety. 14. Bipolar disorder. 15. Weakness and debility. PLAN: Continue with medication treatment. Obtain labs a.m. Obtain chest x-ray in a.m. Continue weaning off on oxygenation. Further recommendations per consults. manager country arranged for subacute placement. JOB# [id number] AMY
[2016-04-15] MEDS: Atorvastatin Calcium 10 MG TAB GT SCH (20:56)
--- NOTE | 2016-04-16 01:18 | Progress Notes ---
SUBJECTIVE: The patient is awake and alert. The patient is on oxygen via trach site. The patient received inpatient rehab therapy. The patient received inpatient neb treatment. The patient is on IV antibiotics. The patient did have a sitter at bedside. OBJECTIVE: VITAL SIGNS: Temperature 98.1, pulse 88, blood pressure 130/80, respirations 20, O2 sat 98% on oxygen via trach collar at 40% FiO2. CARDIOVASCULAR: S1, S2. RESPIRATORY: Rales. ABDOMEN: Soft, positive bowel sounds. LABORATORY DATA: Hematology: WBC 16.2, hemoglobin 10.5, hematocrit per labs, platelet count 264, 13% monocytes. ESR is 114. Sodium 131, potassium 4.3, chloride 95, bicarb 36, anion gap 3.5, BUN 12, creatinine 0.3, GFR is more than 60. Glucose 105, calcium is 10. C-reactive protein 2.2. Microbiology: Urine culture on 04/01/2016 shows MRSA. MRSA screen 04/01/2016 negative. Urine culture from 04/01/2016 shows yeast and blood culture from 04/05/2016 negative. ASSESSMENT: 1. Sepsis. 2. Pneumonia secondary to MRSA. 3. Urinary tract infection secondary to yeast. 4. Respiratory failure (acute). 5. Status post trach. 6. History of alcohol abuse. 7. History of methamphetamine abuse. 8. Cerebrovascular accident. 9. Anxiety. 10. Bipolar disorder. 11. Leukocytosis. 12. Anemia. 13. Thrombocytosis. 14. Hyponatremia. 15. Weakness and debility. PLAN: Continue current medication and treatment. Obtain labs in a.m. Continue with oxygenation. Awaiting transfer to subacute facility. platform material handler manager for discharge planning. JOB# [id number] AMY
[2016-04-16] MEDS: Albuterol/Ipratropium Neb 3 ML AERS HHN SCH ×3 (03:31→12:40)
[2016-04-16] MEDS: Ipratropium Neb 0.5 mg/2.5 mL UD HHN SCH ×4 (03:31→19:41)
[2016-04-16] MEDS: Budesonide 0.5 Mg/2 mL Ud HHN SCH (06:52)
[2016-04-16] MEDS: Chlorhexidine Gluconate 0.12% 15mL Mouthwash MM SCH (08:25)
[2016-04-16] MEDS: Ferrous Sulfate 300 MG/5 ML UDC GT SCH (09:23)
[2016-04-16] MEDS: Potassium Chloride Elixir 20 mEq /15 mL UDC GT SCH (09:24)
[2016-04-16] MEDS: Lactobacillus Rhamnosus 10 Billion CFU Capsule PO SCH (09:25)
[2016-04-16] MEDS: Multivitamin w/ Minerals Tab GT SCH (09:27)
[2016-04-16 10:03] LABS: HEMOGLOBIN 10.1 gm/dL (11.7-15.5)
[2016-04-16 10:12] LABS: HEMATOCRIT 29.5 % (35.0-45.0); MEAN CELL VOLUME 88.5 fl (81-100); MEAN CORPUSCULAR HEMOGLOBIN 30.3 pg (27.0-31.0); MEAN CORPUSCULAR HGB CONC 34.2 pg (28.0-36.0); MEAN PLATELET VOLUME 7.5 fl; PLATELET COUNT 693 Th/cmm (150-400); RED BLOOD COUNT 3.33 Mil/cmm (3.80-5.10); RED CELL DISTRIBUTION WIDTH 16.4 % (11.5-20.0)
[2016-04-16 10:27] LABS: WHITE BLOOD COUNT 18.2 Th/cmm (4.8-10.8)
[2016-04-16 10:59] LABS: ANION GAP 11.5 (7.0-16.0); BUN - UREA NITROGEN 11 mg/dL (7-25); BUN/CREATININE RATIO 27.5; CALCIUM SERUM 9.9 mg/dL (8.6-10.3); CARBON DIOXIDE 30.6 mEq/L (21.0-31.0); CHLORIDE 95 mEq/L (98-107); CREATININE - SERUM 0.4 mg/dL (0.6-1.2); GLUCOSE 108 mg/dL (70-105); POTASSIUM SERUM 4.1 mEq/L (3.5-5.1); SODIUM SERUM 133 mEq/L (136-145)
[2016-04-16 11:11] LABS: BAND NEUTROPHILE 1 % (0-10); EOSINOPHIL 1 % (0-5); NEUTROPHILS 61 % (40-80); TOTAL CELLS COUNTED 100
[2016-04-16 11:12] LABS: MYELOCYTE 2 %; PLATELET ESTIMATE INCREASED PLATELETS (NORMAL); PLATELET MORPHOLOGY NORMAL (NORMAL)
[2016-04-16] MEDS: Levofloxacin 500mg/100mL 500 MG/100 ML BAG IV SCH (16:30)
[2016-04-16] MEDS: Atorvastatin Calcium 10 MG TAB GT SCH (21:17)
--- NOTE | 2016-04-17 00:53 | Infectious Disease Prog Note ---
Infectious Disease Subjective - Review of Systems Service Date: 04/17/16 Subjective: cc mrsa pneummonia hpi- pt confused seen by psyche cornel no fever o/e Physical Exam: General: No Acute Distress HEENT: EOMI Bilaterally, PERRLA Bilaterally, Head is normocephalic, atraumatic on inspection. Cardio: +S1/S2 Auscultated, RRR, no murmurs/rubs/gallops noted Respiratory: Clear to Auscultate Bilaterally trach Abdominal: Soft, Nondistended, Nontender to palpation x 4 quadrants Genital/Urinary: Extremities: No Edema noted in the lower extremities Neurological: Cranial Nerves II-XII intact bilaterally, Gait Steady,l Focal Deficits noted. Infectious Disease Objective - Results Result Diagrams: 04/16/16 09:45 04/16/16 09:45 Recent Labs: Laboratory Last Values WBC 18.2 Th/cmm (4.8-10.8) H D 04/16/16 09:45 RBC 3.33 Mil/cmm (3.80-5.10) L 04/16/16 09:45 Hgb 10.1 gm/dL (11.7-15.5) L 04/16/16 09:45 Hct 29.5 % (35.0-45.0) L 04/16/16 09:45 MCV 88.5 fl (81-100) 04/16/16 09:45 MCH 30.3 pg (27.0-31.0) 04/16/16 09:45 MCHC Differential 34.2 pg (28.0-36.0) 04/16/16 09:45 RDW 16.4 % (11.5-20.0) 04/16/16 09:45 Plt Count 693 Th/cmm (150-400) H 04/16/16 09:45 MPV 7.5 fl 04/16/16 09:45 Neutrophils % 51.5 % (40.0-80.0) 04/15/16 08:00 Band Neutrophils % 1 % (0-10) 04/16/16 09:45 Lymphocytes % 33.2 % (20.0-50.0) 04/15/16 08:00 Monocytes % 12.4 % (2.0-10.0) H 04/15/16 08:00 Eosinophils % 2.5 % (0.0-5.0) 04/15/16 08:00 Basophils % 0.4 % (0.0-2.0) 04/15/16 08:00 Neutrophils (Manual) 61 % (40-80) 04/16/16 09:45 Lymphocytes 21 % (20-50) 04/16/16 09:45 Monocytes 14 % (2-10) H 04/16/16 09:45 Eosinophils 1 % (0-5) 04/16/16 09:45 Basophils 1 % (0-3) 04/05/16 07:40 Myelocytes 2 % 04/16/16 09:45 Atypical Lymphocytes 2 % 04/05/16 07:40 Platelet Estimate INCREASED PLATELETS (NORMAL) 04/16/16 09:45 Platelet Morphology NORMAL (NORMAL) 04/16/16 09:45 Anisocytosis 1+ 04/05/16 07:40 RBC Morph Micro Appear NORMAL (NORMAL) 04/16/16 09:45 ESR > 140 mm/hr (0-30) H 04/16/16 09:45 PT 9.8 SECONDS (9.5-11.5) 04/10/16 17:26 INR 0.99 (0.5-1.4) 04/10/16 17:26 Specimen Source Arterial 04/07/16 09:00 Sample Site RB 04/07/16 09:00 pH 7.47 (7.35-7.45) H 04/07/16 09:00 pCO2 46.0 mmHg (35.0-45.0) H 04/07/16 09:00 pO2 78.0 mmHg (80.0-100.0) L 04/07/16 09:00 HCO3 33.5 mmol/L (20.0-26.0) H 04/07/16 09:00 Base Excess 8.7 mmol/L (-3.0-3.0) H 04/07/16 09:00 O2 Saturation 96.0 % (92.0-100.0) 04/07/16 09:00 Kenan Test NA 04/07/16 09:00 Vent Rate NA 04/07/16 09:00 Inspired O2 40 04/07/16 09:00 Tidal Volume NA 04/07/16 09:00 PEEP NA 04/07/16 09:00 Pressure (ins/psv/peep) NA 04/07/16 09:00 Critical Value E.[place] 04/07/16 09:00 Sodium 133 mEq/L (136-145) L 04/16/16 09:45 Potassium 4.1 mEq/L (3.5-5.1) 04/16/16 09:45 Chloride 95 mEq/L (98-107) L 04/16/16 09:45 Carbon Dioxide 30.6 mEq/L (21.0-31.0) 04/16/16 09:45 Anion Gap 11.5 (7.0-16.0) 04/16/16 09:45 BUN 11 mg/dL (7-25) 04/16/16 09:45 Creatinine 0.4 mg/dL (0.6-1.2) L 04/16/16 09:45 Est GFR ( Amer) > 60.0 ml/min (>90) 04/16/16 09:45 Est GFR (Non-Af Amer) > 60.0 ml/min 04/16/16 09:45 BUN/Creatinine Ratio 27.5 04/16/16 09:45 Glucose 108 mg/dL (70-105) H 04/16/16 09:45 Calcium 9.9 mg/dL (8.6-10.3) 04/16/16 09:45 Magnesium 2.0 mg/dL (1.9-2.7) 04/02/16 04:33 Total Bilirubin 0.4 mg/dL (0.3-1.0) 04/08/16 07:33 Direct Bilirubin 0.13 mg/dL (0.0-0.2) 04/02/16 04:33 AST 14 U/L (13-39) 04/08/16 07:33 ALT 11 U/L (7-52) 04/08/16 07:33 Alkaline Phosphatase 184 U/L (34-104) H 04/08/16 07:33 Ammonia 32 umol/L (16-53) 04/05/16 07:40 C-Reactive Protein 1.4 mg/dL (0.0-0.9) H 04/16/16 09:45 Total Protein 6.9 gm/dL (6.0-8.3) 04/08/16 07:33 Albumin 3.2 gm/dL (3.7-5.3) L 04/08/16 07:33 Globulin 3.7 gm/dL 04/08/16 07:33 Albumin/Globulin Ratio 0.9 (1.0-1.8) L 04/08/16 07:33 Lipase 27 U/L (11-82) 04/15/16 08:00 Urine Source [place] 04/01/16 11:10 Urine Color YELLOW 04/01/16 11:10 Urine Clarity SLIGHTLY CLOUDY (CLEAR) 04/01/16 11:10 Urine pH 6.0 04/01/16 11:10 Ur Specific [place] 1.025 (1.005-1.030) 04/01/16 11:10 Urine Protein NEGATIVE mg/dL (NEGATIVE) 04/01/16 11:10 Urine Glucose (UA) NEGATIVE mg/dL (NEGATIVE) 04/01/16 11:10 Urine Ketones NEGATIVE mg/dL (NEGATIVE) 04/01/16 11:10 Urine Blood NEGATIVE (NEGATIVE) 04/01/16 11:10 Urine Nitrate NEGATIVE (NEGATIVE) 04/01/16 11:10 Urine Bilirubin NEGATIVE (NEGATIVE) 04/01/16 11:10 Urine Urobilinogen 0.2 E.U./dL (0.2 - 1.0) 04/01/16 11:10 Ur Leukocyte Esterase NEGATIVE (NEGATIVE) 04/01/16 11:10 Urine RBC 0-1 /hpf (0-5) 04/01/16 11:10 Urine WBC 2-5 /hpf (0-5) 04/01/16 11:10 Ur Epithelial Cells OCCASIONAL /lpf (FEW) 04/01/16 11:10 Urine Bacteria OCCASIONAL /hpf (NONE SEEN) 04/01/16 11:10 Urine Yeast FEW /hpf (NONE SEEN) H 04/01/16 11:10 Vancomycin Trough 21.6 ug/mL (10-20) H 04/15/16 08:00 - Physical Exam Vitals and I&O: Vital Signs Temp 98.4 F 04/16/16 20:00 Pulse 111 04/16/16 20:00 Resp 18 04/16/16 20:00 BP 141/88 04/16/16 20:00 Pulse Ox 100 04/16/16 20:00 Intake & Output 04/16/16 04/16/16 04/17/16 06:59 18:59 06:59 Intake Total 1360 Output Total 700 700 Balance -700 660 Intake: Intake, IV Amount 100 Levofloxacin 500mg/100mL 100 500 mg In 100 ml @ 100 mls/hr IV Q24H [facility] Rx#: [id number] Tube Feeding 910 Other 350 Output: Urine 700 700 Other: # Bowel Movements 1 Active Medications: Current Medications Acetaminophen (Tylenol 650mg/20.3ml Suspension) 640 mg GT Q4H PRN PRN Reason: Pain (Mild) Stop: 05/31/16 04:26 Last Admin: 04/16/16 21:16 Dose: 640 mg Acetaminophen (Tylenol 650mg/20.3ml Suspension) 640 mg GT Q4H PRN PRN Reason: Fever > 101 Stop: 05/31/16 04:26 Last Admin: 04/05/16 17:25 Dose: 640 mg Albuterol/Ipratropium (Duoneb Neb) 3 ml HHN Q6HRT [facility] Stop: 05/31/16 06:59 Last Admin: 04/16/16 12:40 Dose: 3 ml Albuterol/Ipratropium (Duoneb Neb) 3 ml HHN Q2H PRN PRN Reason: Wheezing Stop: 05/31/16 01:21 Last Admin: 04/08/16 02:51 Dose: 3 ml Aspirin (Aspirin) 325 mg GT DAILY [facility] Stop: 05/31/16 08:59 Last Admin: 04/16/16 09:24 Dose: 325 mg Atorvastatin Calcium (Lipitor) 5 mg GT HS [facility] PRN Reason: Protocol Stop: 05/31/16 20:59 Last Admin: 04/16/16 21:17 Dose: 5 mg Bisacodyl (Dulcolax 10 Mg Supp) 10 mg RC DAILY PRN PRN Reason: Constipation Stop: 05/31/16 04:26 Budesonide (Pulmicort) 0.5 mg HHN BIDRT [facility] Stop: 06/01/16 06:59 Last Admin: 04/16/16 06:52 Dose: 0.5 mg Chlorhexidine Gluconate (Peridex) 15 ml MM 0800,2000 [facility] Stop: 05/31/16 07:59 Last Admin: 04/16/16 08:25 Dose: 15 ml Clonidine HCl (Catapres) 0.3 mg GT Q6H PRN PRN Reason: sbp above 160 or dbp above 110 Diphenhydramine HCl (Benadryl) 25 mg GT Q6H PRN PRN Reason: Itching Stop: 05/31/16 04:26 Last Admin: 04/05/16 20:29 Dose: 25 mg Diphenhydramine HCl (Benadryl 50 Mg/Ml) 50 mg IVP Q6HR PRN PRN Reason: Anxiety Stop: 06/05/16 11:37 Last Admin: 04/16/16 15:20 Dose: 50 mg Ferrous Sulfate (Iron) 330 mg GT DAILY [facility] Stop: 05/31/16 08:59 Last Admin: 04/16/16 09:23 Dose: 330 mg Fluconazole (Diflucan) 100 mg PO DAILY [facility] Stop: 06/12/16 08:59 Last Admin: 04/16/16 09:24 Dose: 100 mg Folic Acid (Folate) 1 mg PO DAILY [facility] Stop: 06/05/16 08:59 Last Admin: 04/16/16 09:27 Dose: 1 mg Heparin Sodium (Porcine) (Heparin) 5,000 units SUBQ Q12HR [facility] Stop: 05/31/16 04:29 Last Admin: 04/16/16 21:17 Dose: 5,000 units Hydroxyzine Pamoate (Vistaril) 25 mg GT Q6HR PRN; Protocol PRN Reason: Anxiety Stop: 06/09/16 11:59 Last Admin: 04/16/16 21:18 Dose: 25 mg Levofloxacin (Levaquin Pb) 500 mg in 100 mls @ 100 mls/hr IV Q24H [facility] Stop: 05/31/16 16:59 Last Infusion: 04/16/16 17:30 Dose: Infused Sodium Chloride (Nacl 0.9%) 1,000 mls @ 0 mls/hr IV .Q0M [facility] PRN Reason: KVO Stop: 06/04/16 18:59 Vancomycin HCl 1 gm/ Sodium (Chloride) 250 mls @ 165 mls/hr IV Q18H [facility] Stop: 06/14/16 15:59 Last Admin: 04/16/16 09:55 Dose: 165 mls/hr Ipratropium [place] (Atrovent Neb 0.5mg/2.5ml) 0.5 mg HHN Q4HRT [facility] Stop: 05/31/16 22:59 Last Admin: 04/16/16 19:41 Dose: 0.5 mg Lactobacillus Rhamnosus (Culturelle) 1 each PO DAILY [facility] Stop: 06/02/16 08:59 Last Admin: 04/16/16 09:25 Dose: 1 each Lamotrigine (Lamictal) 25 mg GT HS [facility] PRN Reason: Protocol Stop: 05/31/16 20:59 Last Admin: 04/16/16 21:18 Dose: 25 mg Magnesium Hydroxide (Milk Of Magnesia) 30 ml GT HS PRN PRN Reason: Constipation Stop: 05/31/16 04:26 Magnesium Oxide (Mag-Oxide) 400 mg GT DAILY [facility] Stop: 05/31/16 12:29 Last Admin: 04/16/16 09:26 Dose: 400 mg Miscellaneous (Probiotic Screen) 1 ea MC PRN PRN PRN Reason: PROTOCOL Stop: 06/01/16 14:37 Ondansetron HCl (Zofran Odt) 4 mg SL Q6H PRN PRN Reason: Nausea / Vomiting Potassium Chloride (Potassium Chloride Elixir) 20 meq GT DAILY [facility] Stop: 05/31/16 12:29 Last Admin: 04/16/16 09:24 Dose: 20 meq Propranolol HCl (Inderal) 20 mg GT BID [facility] Stop: 05/31/16 08:59 Last Admin: 04/16/16 16:31 Dose: 20 mg Risperidone (Risperdal) 0.5 mg GT BID [facility] PRN Reason: Protocol Stop: 06/09/16 16:59 Last Admin: 04/16/16 16:31 Dose: 0.5 mg Thiamine HCl (Vitamin B1) 100 mg PO DAILY [facility] Stop: 06/05/16 08:59 Last Admin: 04/16/16 09:26 Dose: 100 mg - Procedures Procedures: Procedures Procedure Code Date RESPIRATORY VENTILATION, GREATER THAN 96 CONSECUTIVE HOURS [id number] 03/31/16 VENT MGMT INPAT INIT DAY 03/31/16 VENT MGMT INPAT SUBQ DAY 03/31/16
[2016-04-17] MEDS: Ipratropium Neb 0.5 mg/2.5 mL UD HHN SCH ×3 (02:08→14:34)
[2016-04-17 05:37] LABS: % EOSINOPHILS 4.3 % (0.0-5.0); % LYMPHOCYTES 32.9 % (20.0-50.0); % MONOCYTES 11.3 % (2.0-10.0); % NEUTROPHILS 50.5 % (40.0-80.0); HEMATOCRIT 28.9 % (35.0-45.0); HEMOGLOBIN 9.9 gm/dL (11.7-15.5); MEAN CELL VOLUME 87.7 fl (81-100); MEAN CORPUSCULAR HEMOGLOBIN 30.2 pg (27.0-31.0); MEAN CORPUSCULAR HGB CONC 34.4 pg (28.0-36.0); MEAN PLATELET VOLUME 7.6 fl; NEUTROPHILE ABSOLUTE 6.7 Th/cmm (1.8-8.0); PLATELET COUNT 699 Th/cmm (150-400); RED BLOOD COUNT 3.29 Mil/cmm (3.80-5.10); RED CELL DISTRIBUTION WIDTH 16.3 % (11.5-20.0)
[2016-04-17 05:44] LABS: WHITE BLOOD COUNT 13.2 Th/cmm (4.8-10.8)
[2016-04-17] MEDS: Albuterol/Ipratropium Neb 3 ML AERS HHN SCH ×3 (06:40→19:38)
[2016-04-17] MEDS: Budesonide 0.5 Mg/2 mL Ud HHN SCH ×2 (06:40→19:39)
[2016-04-17 07:59] LABS: ANION GAP 8.8 (7.0-16.0); BUN - UREA NITROGEN 11 mg/dL (7-25); BUN/CREATININE RATIO 27.5; CARBON DIOXIDE 31.9 mEq/L (21.0-31.0); CHLORIDE 96 mEq/L (98-107); CREATININE - SERUM 0.4 mg/dL (0.6-1.2); GLUCOSE 110 mg/dL (70-105); POTASSIUM SERUM 3.7 mEq/L (3.5-5.1); SODIUM SERUM 133 mEq/L (136-145)
[2016-04-17] MEDS: Multivitamin w/ Minerals Tab GT SCH (09:10)
[2016-04-17] MEDS: Lactobacillus Rhamnosus 10 Billion CFU Capsule PO SCH (09:11)
[2016-04-17] MEDS: Ferrous Sulfate 300 MG/5 ML UDC GT SCH (09:11)
[2016-04-17] MEDS: Potassium Chloride Elixir 20 mEq /15 mL UDC GT SCH (09:12)
[2016-04-17] MEDS: Chlorhexidine Gluconate 0.12% 15mL Mouthwash MM SCH ×2 (09:13→21:23)
--- NOTE | 2016-04-17 11:29 | Progress Notes ---
SUBJECTIVE: The patient is awake and alert. The patient is on oxygen via trach site. The patient is receiving inpatient rehab therapy. The patient is receiving inpatient nebulizer treatment. The patient is on tube feedings. The patient is on IV antibiotics. The patient has 1:1 sitter. The patient complains of problems with her trach. OBJECTIVE: VITAL SIGNS: Temperature 98.4, pulse 84, blood pressure 141/88, respiratory rate 24, and O2 sat is via trach. FiO2 of 40% CARDIOVASCULAR: S1 and S2. RESPIRATORY: Few rales. GASTROINTESTINAL: Soft. Positive bowel sounds. LABORATORY DATA: Hematology: WBC 18.2, hemoglobin 10.1, hematocrit per labs, platelet count per labs, 14% eosinophils. ESR is more than 140. Chemistry: Sodium 133, potassium 4.1, chloride 95, bicarb 30, anion gap 11, BUN 11, creatinine 0.4. GFR is more than 60. Glucose is 108, calcium 9.9. MICROBIOLOGY: MRSA screen from April 01 is negative. Sputum culture from April 01 is positive for MRSA. Urine culture from April 01 shows yeast. Blood culture from April 05 is negative. ASSESSMENT: 1. Sepsis. 2. Pneumonia secondary to methicillin-resistant Staphylococcus aureus. 3. Urinary tract infection secondary to yeast. 4. Respiratory failure (acute). 5. Status post trach. 6. History of alcohol abuse. 7. History of methamphetamine abuse. 8. History of cerebrovascular accident. 9. Anxiety. 10. Bipolar disorder. 11. Leukocytosis (worsening). 12. Weakness and debility. 13. Anemia. 14. Thrombocytosis. 15. Hyponatremia. 16. Hyperglycemia. PLAN: Continue current medication and treatment. Obtain labs in a.m. Continue inpatient rehab therapy. Continue with oxygenation. Further recommendations per consult. assistant terminal manager will arrange for subacute facility placement. JOB# [id number] AMY
--- NOTE | 2016-04-17 13:21 | Progress Notes ---
PROBLEM LIST: 1. Bilateral patchy pneumonia, acute on chronic. 2. Acute on chronic respiratory failure, currently trach with history of left-sided hemiparesis, previous history of vent-dependent. SYMPTOMS: Nil. The patient is periodically agitated, restless, but currently calm, denies of any specific new symptoms. PHYSICAL EXAMINATION: VITAL SIGNS: Temperature is 97.4, blood pressure 123/82, saturation is high 90s on 40% trach mask. ENT: Shows no new changes. CHEST: Shows diminished air entry with occasional secretory noise. HEART: Regular. Chest x-ray yesterday shows chronic bilateral interstitial changes with slightly decreased lung volumes. LABORATORY DATA: Today, white count is 8.2, otherwise unremarkable and electrolytes are okay. ASSESSMENT: The patient clinically appears to be reasonably stable. PLANS AND SUGGESTIONS: Okay pulmonary acosta to transfer to available SNF or previous SNF and continue rest of other treatment and go from there. JOB# [id number]
[2016-04-17] MEDS: Atorvastatin Calcium 10 MG TAB GT SCH (21:23)
[2016-04-18] MEDS: Albuterol/Ipratropium Neb 3 ML AERS HHN SCH ×4 (01:05→19:44)
--- NOTE | 2016-04-18 05:03 | Progress Notes ---
SUBJECTIVE: The patient is awake, alert. The patient is on oxygen via trach site. The patient is receiving inpatient nebulizer treatment. The patient is receiving inpatient rehab therapy. The patient is on IV antibiotics. OBJECTIVE: VITAL SIGNS: Temperature 98.5, pulse 95, blood pressure 121/81, respiratory rate 18, O2 sat 99% on oxygen via trach site. CARDIOVASCULAR: S1, S2. RESPIRATORY: Rales. GASTROINTESTINAL: Soft, +BS. LABORATORY DATA: Hematology, WBC of 13.2, hemoglobin 9.9, hematocrit 28.9, platelet count of 699, 11% monocytes. ESR is more than 40. Chemistry, sodium 133, potassium 3.7, chloride 96, bicarbonate 31, anion gap per labs, BUN 11, creatinine per labs, GFR is more than 60, glucose 110, C-reactive protein 10.0. MICROBIOLOGY: MRSA screening from 04/01 negative. Sputum culture on 04/01 shows MRSA. Urine culture from 04/01 shows yeast and blood culture from 04/05 negative. ASSESSMENT: 1. Sepsis. 2. Pneumonia secondary to MRSA. 3. UTI secondary to yeast. 4. Leucocytosis. 5. Anemia. 6. Thrombocytosis. 7. Hyponatremia. 8. Hyperglycemia. 9. Respiratory failure (acute). 10. Status post trach. 11. History of alcohol abuse. 12. History of drug abuse. 13. History of CVA. 14. Anxiety. 15. Bipolar disorder. 16. Weakness and debility. PLAN: Continue current medication and treatment. Obtain labs in a.m. Continue inpatient rehab therapy. Continue inpatient nebulizer treatment. Continue oxygenation. Further recommendations per consults. manager fraud will arrange for subacute placement. JOB# [id number] [facility] CENTERArabella
[2016-04-18] MEDS: Budesonide 0.5 Mg/2 mL Ud HHN SCH ×2 (06:33→19:44)
[2016-04-18 08:10] LABS: % BASOPHILS 0.4 % (0.0-2.0); % EOSINOPHILS 2.2 % (0.0-5.0); % LYMPHOCYTES 30.7 % (20.0-50.0); % MONOCYTES 8.8 % (2.0-10.0); % NEUTROPHILS 57.9 % (40.0-80.0); HEMOGLOBIN 11.1 gm/dL (11.7-15.5); MEAN CELL VOLUME 88.4 fl (81-100); MEAN CORPUSCULAR HEMOGLOBIN 29.6 pg (27.0-31.0); MEAN CORPUSCULAR HGB CONC 33.5 pg (28.0-36.0); MEAN PLATELET VOLUME 7.6 fl; NEUTROPHILE ABSOLUTE 9.7 Th/cmm (1.8-8.0); PLATELET COUNT 693 Th/cmm (150-400); RED BLOOD COUNT 3.73 Mil/cmm (3.80-5.10); RED CELL DISTRIBUTION WIDTH 16.8 % (11.5-20.0)
[2016-04-18 08:11] LABS: WHITE BLOOD COUNT 16.9 Th/cmm (4.8-10.8)
[2016-04-18 08:33] LABS: BUN - UREA NITROGEN 12 mg/dL (7-25); CALCIUM SERUM 10.1 mg/dL (8.6-10.3); CARBON DIOXIDE 30.1 mEq/L (21.0-31.0); CHLORIDE 98 mEq/L (98-107); CREATININE - SERUM 0.4 mg/dL (0.6-1.2); GLUCOSE 122 mg/dL (70-105); POTASSIUM SERUM 4.1 mEq/L (3.5-5.1); SODIUM SERUM 131 mEq/L (136-145)
[2016-04-18] MEDS: Potassium Chloride Elixir 20 mEq /15 mL UDC GT SCH (08:42)
[2016-04-18] MEDS: Ferrous Sulfate 300 MG/5 ML UDC GT SCH (08:43)
[2016-04-18] MEDS: Lactobacillus Rhamnosus 10 Billion CFU Capsule PO SCH (08:43)
[2016-04-18] MEDS: Multivitamin w/ Minerals Tab GT SCH (08:44)
[2016-04-18] MEDS: Chlorhexidine Gluconate 0.12% 15mL Mouthwash MM SCH ×2 (08:44→21:22)
[2016-04-18] MEDS: Ipratropium Neb 0.5 mg/2.5 mL UD HHN SCH ×3 (10:35→22:37)
--- NOTE | 2016-04-18 11:24 | Progress Notes ---
PULMONARY PROGRESS NOTE PROBLEM LIST: 1. Acute on chronic respiratory failure. 2. Acute on chronic ____ significantly with underlying suspect pulmonary fibrotic changes. 3. Recurrent agitation. 4. History of CVA. SYMPTOMS: Nil. Periodic and getting edgy, but no specific other symptoms. PHYSICAL EXAMINATION: VITAL SIGNS: Temperature is 98.5, blood pressure 132/69, and saturation 98% on 40% of oxygen. NECK: Veins could not be visualized. CHEST: Shows diminished air entry with occasional rhonchi. HEART: Regular. ABDOMEN: Soft and nontender. LABORATORY DATA: White count is 13.2 and monocytes 7%. Electrolytes are okay. ASSESSMENT: The patient is clinically stable, not much changed. PLANS AND SUGGESTIONS: Okay, pulmonary acosta to discharge to the lower level and continue other treatment at that level and go from there. JOB# [id number]
--- NOTE | 2016-04-18 18:17 | Infectious Disease Prog Note ---
Infectious Disease Subjective - Review of Systems Service Date: 04/18/16 Subjective: cc mrsa pneummonia haven uti hpi- pt confused seen by psyche ros no fever o/e Physical Exam: General: No Acute Distress HEENT: EOMI Bilaterally, PERRLA Bilaterally, Head is normocephalic, atraumatic on inspection. Cardio: +S1/S2 Auscultated, RRR, no murmurs/rubs/gallops noted Respiratory: Clear to Auscultate Bilaterally trach Abdominal: Soft, Nondistended, Nontender to palpation x 4 quadrants Genital/Urinary: Extremities: No Edema noted in the lower extremities Neurological: Cranial Nerves II-XII intact bilaterally, Gait Steady,l Focal Deficits noted. Infectious Disease Objective - Results Result Diagrams: 04/18/16 07:45 04/18/16 07:45 Recent Labs: Laboratory Last Values WBC 16.9 Th/cmm (4.8-10.8) H D 04/18/16 07:45 RBC 3.73 Mil/cmm (3.80-5.10) L 04/18/16 07:45 Hgb 11.1 gm/dL (11.7-15.5) L 04/18/16 07:45 Hct 33.0 % (35.0-45.0) L D 04/18/16 07:45 MCV 88.4 fl (81-100) 04/18/16 07:45 MCH 29.6 pg (27.0-31.0) 04/18/16 07:45 MCHC Differential 33.5 pg (28.0-36.0) 04/18/16 07:45 RDW 16.8 % (11.5-20.0) 04/18/16 07:45 Plt Count 693 Th/cmm (150-400) H 04/18/16 07:45 MPV 7.6 fl 04/18/16 07:45 Neutrophils % 57.9 % (40.0-80.0) 04/18/16 07:45 Band Neutrophils % 1 % (0-10) 04/16/16 09:45 Lymphocytes % 30.7 % (20.0-50.0) 04/18/16 07:45 Monocytes % 8.8 % (2.0-10.0) 04/18/16 07:45 Eosinophils % 2.2 % (0.0-5.0) 04/18/16 07:45 Basophils % 0.4 % (0.0-2.0) 04/18/16 07:45 Neutrophils (Manual) 61 % (40-80) 04/16/16 09:45 Lymphocytes 21 % (20-50) 04/16/16 09:45 Monocytes 14 % (2-10) H 04/16/16 09:45 Eosinophils 1 % (0-5) 04/16/16 09:45 Basophils 1 % (0-3) 04/05/16 07:40 Myelocytes 2 % 04/16/16 09:45 Atypical Lymphocytes 2 % 04/05/16 07:40 Platelet Estimate INCREASED PLATELETS (NORMAL) 04/16/16 09:45 Platelet Morphology NORMAL (NORMAL) 04/16/16 09:45 Anisocytosis 1+ 04/05/16 07:40 RBC Morph Micro Appear NORMAL (NORMAL) 04/16/16 09:45 ESR 106 mm/hr (0-30) H 04/18/16 07:45 PT 9.8 SECONDS (9.5-11.5) 04/10/16 17:26 INR 0.99 (0.5-1.4) 04/10/16 17:26 Specimen Source Arterial 04/07/16 09:00 Sample Site RB 04/07/16 09:00 pH 7.47 (7.35-7.45) H 04/07/16 09:00 pCO2 46.0 mmHg (35.0-45.0) H 04/07/16 09:00 pO2 78.0 mmHg (80.0-100.0) L 04/07/16 09:00 HCO3 33.5 mmol/L (20.0-26.0) H 04/07/16 09:00 Base Excess 8.7 mmol/L (-3.0-3.0) H 04/07/16 09:00 O2 Saturation 96.0 % (92.0-100.0) 04/07/16 09:00 Kenan Test NA 04/07/16 09:00 Vent Rate NA 04/07/16 09:00 Inspired O2 40 04/07/16 09:00 Tidal Volume NA 04/07/16 09:00 PEEP NA 04/07/16 09:00 Pressure (ins/psv/peep) NA 04/07/16 09:00 Critical Value E.[place]STON 04/07/16 09:00 Sodium 131 mEq/L (136-145) L 04/18/16 07:45 Potassium 4.1 mEq/L (3.5-5.1) 04/18/16 07:45 Chloride 98 mEq/L (98-107) 04/18/16 07:45 Carbon Dioxide 30.1 mEq/L (21.0-31.0) 04/18/16 07:45 Anion Gap 7.0 (7.0-16.0) 04/18/16 07:45 BUN 12 mg/dL (7-25) 04/18/16 07:45 Creatinine 0.4 mg/dL (0.6-1.2) L 04/18/16 07:45 Est GFR ( Amer) > 60.0 ml/min (>90) 04/18/16 07:45 Est GFR (Non-Af Amer) > 60.0 ml/min 04/18/16 07:45 BUN/Creatinine Ratio 30.0 04/18/16 07:45 Glucose 122 mg/dL (70-105) H 04/18/16 07:45 Calcium 10.1 mg/dL (8.6-10.3) 04/18/16 07:45 Magnesium 2.0 mg/dL (1.9-2.7) 04/02/16 04:33 Total Bilirubin 0.4 mg/dL (0.3-1.0) 04/08/16 07:33 Direct Bilirubin 0.13 mg/dL (0.0-0.2) 04/02/16 04:33 AST 14 U/L (13-39) 04/08/16 07:33 ALT 11 U/L (7-52) 04/08/16 07:33 Alkaline Phosphatase 184 U/L (34-104) H 04/08/16 07:33 Ammonia 32 umol/L (16-53) 04/05/16 07:40 C-Reactive Protein 1.1 mg/dL (0.0-0.9) H 04/18/16 07:45 Total Protein 6.9 gm/dL (6.0-8.3) 04/08/16 07:33 Albumin 3.2 gm/dL (3.7-5.3) L 04/08/16 07:33 Globulin 3.7 gm/dL 04/08/16 07:33 Albumin/Globulin Ratio 0.9 (1.0-1.8) L 04/08/16 07:33 Lipase 27 U/L (11-82) 04/15/16 08:00 Urine Source [place] 04/01/16 11:10 Urine Color YELLOW 04/01/16 11:10 Urine Clarity SLIGHTLY CLOUDY (CLEAR) 04/01/16 11:10 Urine pH 6.0 04/01/16 11:10 Ur Specific [place] 1.025 (1.005-1.030) 04/01/16 11:10 Urine Protein NEGATIVE mg/dL (NEGATIVE) 04/01/16 11:10 Urine Glucose (UA) NEGATIVE mg/dL (NEGATIVE) 04/01/16 11:10 Urine Ketones NEGATIVE mg/dL (NEGATIVE) 04/01/16 11:10 Urine Blood NEGATIVE (NEGATIVE) 04/01/16 11:10 Urine Nitrate NEGATIVE (NEGATIVE) 04/01/16 11:10 Urine Bilirubin NEGATIVE (NEGATIVE) 04/01/16 11:10 Urine Urobilinogen 0.2 E.U./dL (0.2 - 1.0) 04/01/16 11:10 Ur Leukocyte Esterase NEGATIVE (NEGATIVE) 04/01/16 11:10 Urine RBC 0-1 /hpf (0-5) 04/01/16 11:10 Urine WBC 2-5 /hpf (0-5) 04/01/16 11:10 Ur Epithelial Cells OCCASIONAL /lpf (FEW) 04/01/16 11:10 Urine Bacteria OCCASIONAL /hpf (NONE SEEN) 04/01/16 11:10 Urine Yeast FEW /hpf (NONE SEEN) H 04/01/16 11:10 Vancomycin Trough 9.1 ug/mL (10-20) L 04/18/16 15:11 - Physical Exam Vitals and I&O: Vital Signs Temp 98 F 04/18/16 12:00 Pulse 89 04/18/16 16:22 Resp 18 04/18/16 16:00 BP 118/73 04/18/16 16:22 Pulse Ox 99 04/18/16 14:48 Intake & Output 04/17/16 04/18/16 04/18/16 18:59 06:59 18:59 Intake Total 087 719 8159 Output Total 1200 900 700 Balance -400 40 340 Intake: Tube Feeding 700 940 840 Other 100 200 Output: Urine 1200 900 700 Other: # Bowel Movements 3 0 Active Medications: Current Medications Acetaminophen (Tylenol 650mg/20.3ml Suspension) 640 mg GT Q4H PRN PRN Reason: Pain (Mild) Stop: 05/31/16 04:26 Last Admin: 04/16/16 21:16 Dose: 640 mg Acetaminophen (Tylenol 650mg/20.3ml Suspension) 640 mg GT Q4H PRN PRN Reason: Fever > 101 Stop: 05/31/16 04:26 Last Admin: 04/05/16 17:25 Dose: 640 mg Albuterol/Ipratropium (Duoneb Neb) 3 ml HHN Q6HRT [facility] Stop: 05/31/16 06:59 Last Admin: 04/18/16 12:25 Dose: 3 ml Albuterol/Ipratropium (Duoneb Neb) 3 ml HHN Q2H PRN PRN Reason: Wheezing Stop: 05/31/16 01:21 Last Admin: 04/08/16 02:51 Dose: 3 ml Aspirin (Aspirin) 325 mg GT DAILY [facility] Stop: 05/31/16 08:59 Last Admin: 04/18/16 08:42 Dose: 325 mg Atorvastatin Calcium (Lipitor) 5 mg GT HS [facility] PRN Reason: Protocol Stop: 05/31/16 20:59 Last Admin: 04/17/16 21:23 Dose: 5 mg Bisacodyl (Dulcolax 10 Mg Supp) 10 mg RC DAILY PRN PRN Reason: Constipation Stop: 05/31/16 04:26 Budesonide (Pulmicort) 0.5 mg HHN BIDRT [facility] Stop: 06/01/16 06:59 Last Admin: 04/18/16 06:33 Dose: 0.5 mg Chlorhexidine Gluconate (Peridex) 15 ml MM 0800,2000 [facility] Stop: 05/31/16 07:59 Last Admin: 04/18/16 08:44 Dose: 15 ml Clonidine HCl (Catapres) 0.3 mg GT Q6H PRN PRN Reason: sbp above 160 or dbp above 110 Diphenhydramine HCl (Benadryl) 25 mg GT Q6H PRN PRN Reason: Itching Stop: 05/31/16 04:26 Last Admin: 04/17/16 21:23 Dose: 25 mg Diphenhydramine HCl (Benadryl 50 Mg/Ml) 50 mg IVP Q6HR PRN PRN Reason: Anxiety Stop: 06/05/16 11:37 Last Admin: 04/17/16 16:34 Dose: 50 mg Ferrous Sulfate (Iron) 330 mg GT DAILY [facility] Stop: 05/31/16 08:59 Last Admin: 04/18/16 08:43 Dose: 330 mg Fluconazole (Diflucan) 100 mg PO DAILY [facility] Stop: 06/12/16 08:59 Last Admin: 04/18/16 08:42 Dose: 100 mg Folic Acid (Folate) 1 mg PO DAILY [facility] Stop: 06/05/16 08:59 Last Admin: 04/18/16 08:44 Dose: 1 mg Hydroxyzine Pamoate (Vistaril) 25 mg GT Q6HR PRN; Protocol PRN Reason: Anxiety Stop: 06/09/16 11:59 Last Admin: 04/18/16 16:31 Dose: 25 mg Sodium Chloride (Nacl 0.9%) 1,000 mls @ 0 mls/hr IV .Q0M [facility] PRN Reason: KVO Stop: 06/04/16 18:59 Vancomycin HCl 1.25 gm/ Sodium (Chloride) 250 mls @ 165 mls/hr IV Q18H [facility] Stop: 06/17/16 15:59 Last Admin: 04/18/16 17:13 Dose: 165 mls/hr Ipratropium [place] (Atrovent Neb 0.5mg/2.5ml) 0.5 mg HHN Q4HRT [facility] Stop: 05/31/16 22:59 Last Admin: 04/18/16 14:30 Dose: 0.5 mg Lactobacillus Rhamnosus (Culturelle) 1 each PO DAILY [facility] Stop: 06/02/16 08:59 Last Admin: 04/18/16 08:43 Dose: 1 each Lamotrigine (Lamictal) 25 mg GT HS [facility] PRN Reason: Protocol Stop: 05/31/16 20:59 Last Admin: 04/17/16 21:24 Dose: 25 mg Magnesium Hydroxide (Milk Of Magnesia) 30 ml GT HS PRN PRN Reason: Constipation Stop: 05/31/16 04:26 Magnesium Oxide (Mag-Oxide) 400 mg GT DAILY [facility] Stop: 05/31/16 12:29 Last Admin: 04/18/16 08:43 Dose: 400 mg Miscellaneous (Probiotic Screen) 1 ea PRN PRN PRN Reason: PROTOCOL Stop: 06/01/16 14:37 Miscellaneous (Vancomycin Iv Per Pharmacy) 1 ea PRN PRN PRN Reason: RENAL DOSING Stop: 06/17/16 16:51 Ondansetron HCl (Zofran Odt) 4 mg SL Q6H PRN PRN Reason: Nausea / Vomiting Potassium Chloride (Potassium Chloride Elixir) 20 meq GT DAILY [facility] Stop: 05/31/16 12:29 Last Admin: 04/18/16 08:42 Dose: 20 meq Propranolol HCl (Inderal) 20 mg GT BID [facility] Stop: 05/31/16 08:59 Last Admin: 04/18/16 16:22 Dose: 20 mg Risperidone (Risperdal) 1 mg PO BID [facility] PRN Reason: Protocol Stop: 06/17/16 16:59 Last Admin: 04/18/16 16:26 Dose: 1 mg Thiamine HCl (Vitamin B1) 100 mg PO DAILY [facility] Stop: 06/05/16 08:59 Last Admin: 04/18/16 08:44 Dose: 100 mg - Procedures Procedures: Procedures Procedure Code Date RESPIRATORY VENTILATION, GREATER THAN 96 CONSECUTIVE HOURS [id number] 03/31/16 VENT MGMT INPAT INIT DAY 03/31/16 VENT MGMT INPAT SUBQ DAY 03/31/16
[2016-04-18] MEDS: Atorvastatin Calcium 10 MG TAB GT SCH (21:22)
[2016-04-19] MEDS: Albuterol/Ipratropium Neb 3 ML AERS HHN SCH ×4 (01:12→19:03)
--- NOTE | 2016-04-19 03:12 | Progress Notes ---
PROBLEM LIST: 1.Status post respiratory failure, [id number], improving. 2.MRSA ____ colonization. 3.Left-sided hemiplegia. SYMPTOMS: Nil. ____ okay. No specific new symptoms. PHYSICAL EXAMINATION: VITAL SIGNS: Temperature is 99, heart rate is 108-110, blood pressure 142/74, saturation 99 and on 40% of oxygen. ENT: Shows no new changes. CHEST: Shows occasional secretory noise otherwise unremarkable. HEART: Regular. ABDOMEN: Soft, nontender. LABORATORY DATA: White count is 16.9. Electrolytes are okay. ASSESSMENT: The patient is clinically stable, not much respiratory change, ____ white count, but otherwise unremarkable. The patient is clinically stable. PLANS AND SUGGESTIONS: We will go and continue current treatment. We will follow through other studies in the next few days and go from there. JOB# [id number]
--- NOTE | 2016-04-19 03:47 | Progress Notes ---
Case discussed with staff of the patient. The patient continues to be delusional. She believes that she has ____ a can of pineapple and that is next to her on the nightstand; however, there is nothing there. However, she denies any auditory or visual hallucination. She has been pulling her tubes. She continues to be unpredictable and impulsive. The patient is currently on Lamictal because of bipolar disorder and so far, no side effects, no sedation, no nausea, no extrapyramidal symptoms. I will be increasing Risperdal to 1 mg twice a day and we will continue to work with the patient in group therapy, milieu therapy, adjust the medication as needed. JOB# [id number]
[2016-04-19] MEDS: Ipratropium Neb 0.5 mg/2.5 mL UD HHN SCH ×5 (03:54→23:23)
[2016-04-19 07:20] LABS: % BASOPHILS 0.5 % (0.0-2.0); % EOSINOPHILS 3.2 % (0.0-5.0); % LYMPHOCYTES 31.7 % (20.0-50.0); % MONOCYTES 13.5 % (2.0-10.0); % NEUTROPHILS 51.1 % (40.0-80.0); HEMATOCRIT 31.9 % (35.0-45.0); HEMOGLOBIN 10.9 gm/dL (11.7-15.5); MEAN CELL VOLUME 88.3 fl (81-100); MEAN CORPUSCULAR HEMOGLOBIN 30.1 pg (27.0-31.0); MEAN CORPUSCULAR HGB CONC 34.1 pg (28.0-36.0); MEAN PLATELET VOLUME 7.8 fl; NEUTROPHILE ABSOLUTE 8.1 Th/cmm (1.8-8.0); PLATELET COUNT 635 Th/cmm (150-400); RED BLOOD COUNT 3.61 Mil/cmm (3.80-5.10); RED CELL DISTRIBUTION WIDTH 16.6 % (11.5-20.0); WHITE BLOOD COUNT 15.8 Th/cmm (4.8-10.8)
[2016-04-19 07:37] LABS: ANION GAP 11.6 (7.0-16.0); BUN - UREA NITROGEN 12 mg/dL (7-25); CALCIUM SERUM 10.2 mg/dL (8.6-10.3); CARBON DIOXIDE 30.3 mEq/L (21.0-31.0); CHLORIDE 95 mEq/L (98-107); CREATININE - SERUM 0.4 mg/dL (0.6-1.2); GLUCOSE 103 mg/dL (70-105); POTASSIUM SERUM 3.9 mEq/L (3.5-5.1); SODIUM SERUM 133 mEq/L (136-145)
[2016-04-19] MEDS: Budesonide 0.5 Mg/2 mL Ud HHN SCH ×2 (07:57→19:03)
[2016-04-19] MEDS: Ferrous Sulfate 300 MG/5 ML UDC GT SCH ×2 (10:55→11:22)
[2016-04-19] MEDS: Lactobacillus Rhamnosus 10 Billion CFU Capsule PO SCH ×2 (10:56→11:24)
[2016-04-19] MEDS: Multivitamin w/ Minerals Tab GT SCH ×2 (10:56→11:24)
[2016-04-19] MEDS: Potassium Chloride Elixir 20 mEq /15 mL UDC GT SCH ×2 (10:58→11:22)
[2016-04-19] MEDS: Chlorhexidine Gluconate 0.12% 15mL Mouthwash MM SCH ×2 (11:13→21:37)
--- NOTE | 2016-04-19 11:13 | Diagnostic Imaging Report ---
Left lower extremity Doppler venous ultrasound exam HISTORY: Pain/swelling Sonographic sector images were obtained through the deep venous systems of the left leg. Associated Doppler data was obtained. The exam demonstrates patency of the common femoral, superficial femoral, popliteal, and posterior tibial veins. Specifically, no thrombus is seen. There are normal compressibility and augmentation responses. IMPRESSION: Negative exam for deep vein thrombophlebitis.
--- NOTE | 2016-04-19 12:59 | Progress Notes ---
SUBJECTIVE: The patient is awake, alert. The patient is on oxygen via trach site. The patient received inpatient neb treatment. The patient is on IV antibiotics. The patient received inpatient rehab therapy. The patient is on IV fluids. OBJECTIVE: VITAL SIGNS: Temperature is 98, pulse 89, blood pressure 118/73, respiratory rate 18, O2 sat 98% on oxygen with trach collar. CARDIOVASCULAR: S1, S2. RESPIRATORY: Rale. GASTROINTESTINAL: Soft, positive bowel sounds. Labs on the patient is, hematology, WBC 16.9, hemoglobin is 11.1, hematocrit 33.0, platelet count 693. No left shift noted. ESR 106. Chemistry, sodium 131, potassium 4.1, chloride 98, bicarbonate 30, anion gap of 7, BUN 12, creatinine 0.4, GFR is more than 60, glucose is 122, calcium 10.1, C-reactive protein 1.1 and vancomycin trough 59.1. MICROBIOLOGY: MRSA screening from April 01 is negative. Sputum culture from April 01 shows MRSA. Urine culture from April 01 shows yeast. Blood culture from April 05 shows no growth and blood culture from April 17 pending. ASSESSMENT: 1. Leukocytosis (worsening). 2. Anemia. 3. Thrombocytosis. 4. Hyponatremia. 5. Hyperglycemia. 6. Sepsis. 7. Pneumonia secondary to MRSA. 8. Urinary tract infection secondary to yeast. 9. Respiratory failure (acute). 10. Status post trach. 11. Anxiety. 12. Bipolar disorder. 13. Weakness and debility. 14. History of alcohol abuse. 15. History of methamphetamine abuse. 16. History of cerebrovascular accident. PLAN: Continue current medication and treatment. Obtain labs in a.m. Awaiting blood culture results. The patient's Risperdal has been increased by Psychiatry. Further recommendations per consults. 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 JOB# [id number]
[2016-04-19] MEDS ORDERED: Fleet Enema 135 mL RC PRN (15:27)
[2016-04-19] MEDS: Atorvastatin Calcium 10 MG TAB GT SCH (21:38)
--- NOTE | 2016-04-19 23:37 | Progress Notes ---
Case discussed with staff of the patient, reviewed records. The patient today when I asked her if she still believes there is a pineapple can here, she said no. She denies any current auditory or visual hallucinations. She denies any suicidal ideation or homicidal ideation. She still 1:1 because she has been pulling her IV tube and tracheostomy and so far no side effects of the medications. No sedation. No nausea, no extrapyramidal symptoms. Thank you very much for allowing me to participate in the care of this most interesting lady. JOB# [id number]
[2016-04-20] MEDS: Albuterol/Ipratropium Neb 3 ML AERS HHN SCH ×4 (01:26→19:57)
[2016-04-20] MEDS: Ipratropium Neb 0.5 mg/2.5 mL UD HHN SCH ×3 (03:15→11:05)
--- NOTE | 2016-04-20 03:30 | Progress Notes ---
PROBLEM LIST: 1. [id number] respiratory failure, improving. 2. 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 3. Trach. 4. Left-sided hemiparesis. 5. History of drug abuse. SYMPTOMS: Nil. Sleeping, wants to go home, ____ periodic still restless and agitated, but otherwise unremarkable. PHYSICAL EXAMINATION: VITAL SIGNS: The patient's recorded vitals: Temperature is 98.5, blood pressure 129/79, saturation is 90%-100% on 40% of oxygen. GENERAL: On exam trache site appears to be okay. CHEST: Shows diminished air entry with occasional rhonchi. HEART: Regular. LABORATORY DATA: The patient's white count is 15.8. Electrolytes: Sodium 133, otherwise, unremarkable. ASSESSMENT: The patient is clinically stable, not much changed. PLANS AND SUGGESTIONS: We will go ahead and continue current treatment. We will follow through other studies if needed in the next few days and go from there. JOB# [id number]
[2016-04-20] MEDS: Budesonide 0.5 Mg/2 mL Ud HHN SCH ×2 (07:32→19:57)
[2016-04-20] MEDS: Chlorhexidine Gluconate 0.12% 15mL Mouthwash MM SCH ×2 (08:52→21:27)
[2016-04-20] MEDS: Ferrous Sulfate 300 MG/5 ML UDC GT SCH (08:53)
[2016-04-20] MEDS: Multivitamin w/ Minerals Tab GT SCH (08:53)
[2016-04-20] MEDS: Lactobacillus Rhamnosus 10 Billion CFU Capsule PO SCH (08:53)
[2016-04-20] MEDS: Potassium Chloride Elixir 20 mEq /15 mL UDC GT SCH (08:54)
[2016-04-20 09:50] LABS: ANION GAP 7.8 (7.0-16.0); CARBON DIOXIDE 30.1 mEq/L (21.0-31.0); CHLORIDE 96 mEq/L (98-107); GLUCOSE 106 mg/dL (70-105); POTASSIUM SERUM 3.9 mEq/L (3.5-5.1); SODIUM SERUM 130 mEq/L (136-145)
[2016-04-20 09:51] LABS: BUN - UREA NITROGEN 10 mg/dL (7-25); CALCIUM SERUM 10.8 mg/dL (8.6-10.3); CREATININE - SERUM 0.4 mg/dL (0.6-1.2)
[2016-04-20 10:16] LABS: % BASOPHILS 0.5 % (0.0-2.0); % EOSINOPHILS 2.2 % (0.0-5.0); % LYMPHOCYTES 29.7 % (20.0-50.0); % MONOCYTES 9.5 % (2.0-10.0); % NEUTROPHILS 58.1 % (40.0-80.0); HEMATOCRIT 33.8 % (35.0-45.0); HEMOGLOBIN 11.1 gm/dL (11.7-15.5); MEAN CORPUSCULAR HGB CONC 32.9 pg (28.0-36.0); MEAN PLATELET VOLUME 7.9 fl; NEUTROPHILE ABSOLUTE 8.1 Th/cmm (1.8-8.0); PLATELET COUNT 621 Th/cmm (150-400); RED BLOOD COUNT 3.85 Mil/cmm (3.80-5.10); RED CELL DISTRIBUTION WIDTH 16.2 % (11.5-20.0); WHITE BLOOD COUNT 13.9 Th/cmm (4.8-10.8)
--- NOTE | 2016-04-20 13:18 | Diagnostic Imaging Report ---
Ultrasound abdomen HISTORY: Abdominal pain COMPARISON: None Technique: Sonography of the abdomen was performed in multiple planes. FINDINGS: Exam is limited due to body habitus and lack of cooperation during the exam. The visualized portions of the pancreas are unremarkable. The visualized portions of the abdominal aorta within normal limits in size. There is suboptimal visualization of the liver. The liver demonstrates normal echogenicity. The liver margins are not well-defined limiting evaluation for focal lesions. The gallbladder was not well visualized. The common bile duct was also not well visualized. The right kidney measures 11.5 cm. The left kidney measures 11.1 cm. No evidence of focal lesions or hydronephrosis. Note that the renal margins were poorly defined on this exam. The spleen measures 10.7 cm. IMPRESSION: Markedly limited evaluation including limited assessment of right upper quadrant due to patient body habitus and difficulty cooperating. The gallbladder was not well visualized. Consider additional views after fasting if indicated. No evidence of hydronephrosis No evidence of free fluid.
--- NOTE | 2016-04-20 13:40 | Progress Notes ---
SUBJECTIVE: The patient is on trach collar. The patient is on neb treatment. The patient is on IV fluids. The patient is on IV antibiotics. OBJECTIVE: VITAL SIGNS: Temperature is 98.1, pulse 78, blood pressure 90/78, respiratory rate 18, O2 sat 99% on trach collar. CARDIOVASCULAR: S1, S2. RESPIRATORY: Rale. GASTROINTESTINAL: Soft, positive bowel sounds. Labs on the patient is, WBC 15.8, hemoglobin is 10.9, hematocrit 31.9, platelet count per labs 15% monocytes. ESR per labs. Chemistry, sodium 132, potassium 3.9, chloride 95, bicarbonate 30, anion gap of 11, BUN 12, creatinine 0.4. GFR is more than 60. Glucose per labs. Calcium 10.2. MICROBIOLOGY: Sputum culture from April 01 shows MRSA. MRSA screening from April 01 is negative. Urine culture from April 01 shows yeast. Blood culture from April 05 negative. Blood culture from April 17 shows no growth. ASSESSMENT: 1. Pneumonia secondary to MRSA. 2. Urinary tract infection secondary to yeast. 3. Respiratory failure (acute). 4. Status post trach. 5. Anxiety. 6. Bipolar disorder. 7. Debility. 8. Generalized weakness. 9. History of alcohol abuse. 10. History of methamphetamine abuse. 11. History of cerebrovascular accident. PLAN: Continue current medication and treatment. Obtain labs in a.m. Further recommendations per consults. JOB# [id number]
[2016-04-20] MEDS: Hydrocodone/APAP 10 mg/325 mg Tab PO PRN ×2 (15:00→21:25)
--- NOTE | 2016-04-20 18:00 | Infectious Disease Prog Note ---
Infectious Disease Subjective - Review of Systems Service Date: 04/20/16 Subjective: cc mrsa pneummonia [facility]pi- pt confused seen by psyche, wbc better 13k ros no fever o/e Physical Exam: General: No Acute Distress HEENT: EOMI Bilaterally, PERRLA Bilaterally, Head is normocephalic, atraumatic on inspection. Cardio: +S1/S2 Auscultated, RRR, no murmurs/rubs/gallops noted Respiratory: Clear to Auscultate Bilaterally trach Abdominal: Soft, Nondistended, Nontender to palpation x 4 quadrants Genital/Urinary: Extremities: No Edema noted in the lower extremities Neurological: Cranial Nerves II-XII intact bilaterally, Gait Steady,l Focal Deficits noted. Infectious Disease Objective - Results Result Diagrams: 04/20/16 09:00 04/20/16 09:00 Recent Labs: Laboratory Last Values WBC 13.9 Th/cmm (4.8-10.8) H 04/20/16 09:00 RBC 3.85 Mil/cmm (3.80-5.10) 04/20/16 09:00 Hgb 11.1 gm/dL (11.7-15.5) L 04/20/16 09:00 Hct 33.8 % (35.0-45.0) L 04/20/16 09:00 MCV 88.0 fl (81-100) 04/20/16 09:00 MCH 29.0 pg (27.0-31.0) 04/20/16 09:00 MCHC Differential 32.9 pg (28.0-36.0) 04/20/16 09:00 RDW 16.2 % (11.5-20.0) 04/20/16 09:00 Plt Count 621 Th/cmm (150-400) H 04/20/16 09:00 MPV 7.9 fl 04/20/16 09:00 Neutrophils % 58.1 % (40.0-80.0) 04/20/16 09:00 Band Neutrophils % 1 % (0-10) 04/16/16 09:45 Lymphocytes % 29.7 % (20.0-50.0) 04/20/16 09:00 Monocytes % 9.5 % (2.0-10.0) 04/20/16 09:00 Eosinophils % 2.2 % (0.0-5.0) 04/20/16 09:00 Basophils % 0.5 % (0.0-2.0) 04/20/16 09:00 Neutrophils (Manual) 61 % (40-80) 04/16/16 09:45 Lymphocytes 21 % (20-50) 04/16/16 09:45 Monocytes 14 % (2-10) H 04/16/16 09:45 Eosinophils 1 % (0-5) 04/16/16 09:45 Basophils 1 % (0-3) 04/05/16 07:40 Myelocytes 2 % 04/16/16 09:45 Atypical Lymphocytes 2 % 04/05/16 07:40 Platelet Estimate INCREASED PLATELETS (NORMAL) 04/16/16 09:45 Platelet Morphology NORMAL (NORMAL) 04/16/16:45 Anisocytosis 1+ 04/05/16 07:40 RBC Morph Micro Appear NORMAL (NORMAL) 04/16/16 09:45 ESR 81 mm/hr (0-30) H 04/20/16 09:00 PT 9.8 SECONDS (9.5-11.5) 04/10/16 17:26 INR 0.99 (0.5-1.4) 04/10/16 17:26 Specimen Source Arterial 04/07/16 09:00 Sample Site RB 04/07/16 09:00 pH 7.47 (7.35-7.45) H 04/07/16 09:00 pCO2 46.0 mmHg (35.0-45.0) H 04/07/16 09:00 pO2 78.0 mmHg (80.0-100.0) L 04/07/16 09:00 HCO3 33.5 mmol/L (20.0-26.0) H 04/07/16 09:00 Base Excess 8.7 mmol/L (-3.0-3.0) H 04/07/16 09:00 O2 Saturation 96.0 % (92.0-100.0) 04/07/16 09:00 Kenan Test NA 04/07/16 09:00 Vent Rate NA 04/07/16 09:00 Inspired O2 40 04/07/16 09:00 Tidal Volume NA 04/07/16 09:00 PEEP NA 04/07/16 09:00 Pressure (ins/psv/peep) NA 04/07/16 09:00 Critical Value MEGAN 04/07/16 09:00 Sodium 130 mEq/L (136-145) L 04/20/16 09:00 Potassium 3.9 mEq/L (3.5-5.1) 04/20/16 09:00 Chloride 96 mEq/L (98-107) L 04/20/16 09:00 Carbon Dioxide 30.1 mEq/L (21.0-31.0) 04/20/16 09:00 Anion Gap 7.8 (7.0-16.0) 04/20/16 09:00 BUN 10 mg/dL (7-25) 04/20/16 09:00 Creatinine 0.4 mg/dL (0.6-1.2) L 04/20/16 09:00 Est GFR ( Amer) > 60.0 ml/min (>90) 04/20/16 09:00 Est GFR (Non-Af Amer) > 60.0 ml/min 04/20/16 09:00 BUN/Creatinine Ratio 25.0 04/20/16 09:00 Glucose 106 mg/dL (70-105) H 04/20/16 09:00 Calcium 10.8 mg/dL (8.6-10.3) H 04/20/16 09:00 Magnesium 2.0 mg/dL (1.9-2.7) 04/02/16 04:33 Total Bilirubin 0.4 mg/dL (0.3-1.0) 04/08/16 07:33 Direct Bilirubin 0.13 mg/dL (0.0-0.2) 04/02/16 04:33 AST 14 U/L (13-39) 04/08/16 07:33 ALT 11 U/L (7-52) 04/08/16 07:33 Alkaline Phosphatase 184 U/L (34-104) H 04/08/16 07:33 Ammonia 32 umol/L (16-53) 04/05/16 07:40 C-Reactive Protein 1.0 mg/dL (0.0-0.9) H 04/20/16 09:00 Total Protein 6.9 gm/dL (6.0-8.3) 04/08/16 07:33 Albumin 3.2 gm/dL (3.7-5.3) L 04/08/16 07:33 Globulin 3.7 gm/dL 04/08/16 07:33 Albumin/Globulin Ratio 0.9 (1.0-1.8) L 04/08/16 07:33 Lipase 27 U/L (11-82) 04/15/16 08:00 Urine Source [place] 04/01/16 11:10 Urine Color YELLOW 04/01/16 11:10 Urine Clarity SLIGHTLY CLOUDY (CLEAR) 04/01/16 11:10 Urine pH 6.0 04/01/16 11:10 Ur Specific [place] 1.025 (1.005-1.030) 04/01/16 11:10 Urine Protein NEGATIVE mg/dL (NEGATIVE) 04/01/16 11:10 Urine Glucose (UA) NEGATIVE mg/dL (NEGATIVE) 04/01/16 11:10 Urine Ketones NEGATIVE mg/dL (NEGATIVE) 04/01/16 11:10 Urine Blood NEGATIVE (NEGATIVE) 04/01/16 11:10 Urine Nitrate NEGATIVE (NEGATIVE) 04/01/16 11:10 Urine Bilirubin NEGATIVE (NEGATIVE) 04/01/16 11:10 Urine Urobilinogen 0.2 E.U./dL (0.2 - 1.0) 04/01/16 11:10 Ur Leukocyte Esterase NEGATIVE (NEGATIVE) 04/01/16 11:10 Urine RBC 0-1 /hpf (0-5) 04/01/16 11:10 Urine WBC 2-5 /hpf (0-5) 04/01/16 11:10 Ur Epithelial Cells OCCASIONAL /lpf (FEW) 04/01/16 11:10 Urine Bacteria OCCASIONAL /hpf (NONE SEEN) 04/01/16 11:10 Urine Yeast FEW /hpf (NONE SEEN) H 04/01/16 11:10 Vancomycin Trough 9.9 ug/mL (10-20) L 04/20/16 09:00 - Physical Exam Vitals and I&O: Vital Signs Temp 98.3 F 04/20/16 16:00 Pulse 100 04/20/16 16:10 Resp 18 04/20/16 16:00 BP 131/83 04/20/16 16:10 Pulse Ox 100 04/20/16 16:00 Intake & Output 04/19/16 04/20/16 04/20/16 18:59 06:59 18:59 Intake Total 920 840 Output Total 1500 500 Balance -580 340 Intake: Tube Feeding 920 TPN/PPN 840 Output: Urine 1500 500 Other: # Bowel Movements 2 Stool Characteristics Soft Soft Active Medications: Current Medications Acetaminophen (Tylenol 650mg/20.3ml Suspension) 640 mg GT Q4H PRN PRN Reason: Pain (Mild) Stop: 05/31/16 04:26 Last Admin: 04/19/16 04:09 Dose: 640 mg Acetaminophen (Tylenol 650mg/20.3ml Suspension) 640 mg GT Q4H PRN PRN Reason: Fever > 101 Stop: 05/31/16 04:26 Last Admin: 04/05/16 17:25 Dose: 640 mg Acetaminophen/Hydrocodone Bitart ([place] 10 Mg/325 Mg) 1 tab PO Q6H PRN PRN Reason: Pain (Moderate-Severe) Stop: 06/19/16 14:59 Last Admin: 04/20/16 15:00 Dose: 1 tab Albuterol/Ipratropium (Duoneb Neb) 3 ml HHN Q6HRT [facility] Stop: 05/31/16 06:59 Last Admin: 04/20/16 13:41 Dose: 3 ml Albuterol/Ipratropium (Duoneb Neb) 3 ml HHN Q2H PRN PRN Reason: Wheezing Stop: 05/31/16 01:21 Last Admin: 04/08/16 02:51 Dose: 3 ml Aspirin (Aspirin) 325 mg GT DAILY [facility] Stop: 05/31/16 08:59 Last Admin: 04/20/16 08:53 Dose: Not Given Atorvastatin Calcium (Lipitor) 5 mg GT HS [facility] PRN Reason: Protocol Stop: 05/31/16 20:59 Last Admin: 04/19/16 21:38 Dose: 5 mg Bisacodyl (Dulcolax 10 Mg Supp) 10 mg RC DAILY PRN PRN Reason: Constipation Stop: 06/18/16 04:26 Last Admin: 04/19/16 16:52 Dose: 10 mg Budesonide (Pulmicort) 0.5 mg HHN BIDRT [facility] Stop: 06/01/16 06:59 Last Admin: 04/20/16 07:32 Dose: 0.5 mg Chlorhexidine Gluconate (Peridex) 15 ml MM 0800,2000 [facility] Stop: 05/31/16 07:59 Last Admin: 04/20/16 08:52 Dose: 15 ml Clonidine HCl (Catapres) 0.3 mg GT Q6H PRN PRN Reason: sbp above 160 or dbp above 110 Diphenhydramine HCl (Benadryl) 25 mg GT Q6H PRN PRN Reason: Itching Stop: 05/31/16 04:26 Last Admin: 04/18/16 21:23 Dose: 25 mg Diphenhydramine HCl (Benadryl 50 Mg/Ml) 50 mg IVP Q6HR PRN PRN Reason: Anxiety Stop: 06/05/16 11:37 Last Admin: 04/20/16 12:03 Dose: 50 mg Docusate Sodium (Colace) 200 mg PO BID [facility] Stop: 06/18/16 16:59 Last Admin: 04/20/16 16:10 Dose: 200 mg Ferrous Sulfate (Iron) 330 mg GT DAILY [facility] Stop: 05/31/16 08:59 Last Admin: 04/20/16 08:53 Dose: Not Given Fluconazole (Diflucan) 100 mg PO DAILY [facility] Stop: 06/12/16 08:59 Last Admin: 04/20/16 08:53 Dose: Not Given Folic Acid (Folate) 1 mg PO DAILY [facility] Stop: 06/05/16 08:59 Last Admin: 04/20/16 08:53 Dose: Not Given Heparin Sodium (Porcine) (Heparin) 5,000 units SUBQ Q12HR [facility] Stop: 06/18/16 20:59 Last Admin: 04/20/16 08:53 Dose: 5,000 units Hydroxyzine Pamoate (Vistaril) 25 mg GT Q6HR PRN; Protocol PRN Reason: Anxiety Stop: 06/09/16 11:59 Last Admin: 04/19/16 21:41 Dose: 25 mg Sodium Chloride (Nacl 0.9%) 1,000 mls @ 0 mls/hr IV .Q0M [facility] PRN Reason: KVO Stop: 06/04/16 18:59 Ipratropium Calvin (Atrovent Neb 0.5mg/2.5ml) 0.5 mg HHN Q4HRT [facility] Stop: 05/31/16 22:59 Last Admin: 04/20/16 11:05 Dose: 0.5 mg Lactobacillus Rhamnosus (Culturelle) 1 each PO DAILY [facility] Stop: 06/02/16 08:59 Last Admin: 04/20/16 08:53 Dose: Not Given Lamotrigine (Lamictal) 25 mg GT HS [facility] PRN Reason: Protocol Stop: 05/31/16 20:59 Last Admin: 04/19/16 21:37 Dose: 25 mg Magnesium Hydroxide (Milk Of Magnesia) 30 ml GT HS PRN PRN Reason: Constipation Stop: 05/31/16 04:26 Magnesium Oxide (Mag-Oxide) 400 mg GT DAILY [facility] Stop: 05/31/16 12:29 Last Admin: 04/20/16 08:53 Dose: Not Given Miscellaneous (Probiotic Screen) 1 ea MC PRN PRN PRN Reason: PROTOCOL Stop: 06/01/16 14:37 Ondansetron HCl (Zofran Odt) 4 mg SL Q6H PRN PRN Reason: Nausea / Vomiting Potassium Chloride (Potassium Chloride Elixir) 20 meq GT DAILY [facility] Stop: 05/31/16 12:29 Last Admin: 04/20/16 08:54 Dose: Not Given Propranolol HCl (Inderal) 20 mg GT BID [facility] Stop: 05/31/16 08:59 Last Admin: 04/20/16 16:10 Dose: 20 mg Risperidone (Risperdal) 1 mg PO BID [facility] PRN Reason: Protocol Stop: 06/17/16 16:59 Last Admin: 04/20/16 16:10 Dose: 1 mg Sodium Phosphate (Fleet Enema) 135 ml RC DAILY PRN PRN Reason: Constipation Stop: 06/18/16 15:26 Thiamine HCl (Vitamin B1) 100 mg PO DAILY [facility] Stop: 06/05/16 08:59 Last Admin: 04/20/16 08:54 Dose: Not Given - Procedures Procedures: Procedures Procedure Code Date RESPIRATORY VENTILATION, GREATER THAN 96 CONSECUTIVE HOURS [id number] 03/31/16 VENT MGMT INPAT INIT DAY 03/31/16 VENT MGMT INPAT SUBQ DAY 03/31/16
[2016-04-20] MEDS: Atorvastatin Calcium 10 MG TAB GT SCH (21:25)
--- NOTE | 2016-04-20 22:06 | Progress Notes ---
Case was discussed with staff of the patient. The patient today is doing reasonably well. She denies any current intent to harm herself or anybody. She denied any auditory or visual hallucination. She is no longer delusional about the pineapple can. The patient is still medically not stable. The patient needs followup with a psychiatrist upon discharge or if she goes to a nursing facility, she needs to see a psychiatrist there to monitor her medication and no side effects with the medication. Thank you very much for allowing me to participate in the care of this most interesting lady. JOB# [id number]
[2016-04-21] MEDS: Albuterol/Ipratropium Neb 3 ML AERS HHN SCH ×4 (02:52→19:11)
[2016-04-21] MEDS: Hydrocodone/APAP 10 mg/325 mg Tab PO PRN ×3 (06:07→22:30)
[2016-04-21 06:53] LABS: HEMATOCRIT 30.8 % (35.0-45.0); HEMOGLOBIN 10.7 gm/dL (11.7-15.5); MEAN CELL VOLUME 86.5 fl (81-100); MEAN CORPUSCULAR HGB CONC 34.7 pg (28.0-36.0); MEAN PLATELET VOLUME 7.5 fl; PLATELET COUNT 554 Th/cmm (150-400); RED BLOOD COUNT 3.57 Mil/cmm (3.80-5.10); RED CELL DISTRIBUTION WIDTH 16.1 % (11.5-20.0); WHITE BLOOD COUNT 11.2 Th/cmm (4.8-10.8)
[2016-04-21] MEDS: Ipratropium Neb 0.5 mg/2.5 mL UD HHN SCH ×4 (07:00→23:05)
[2016-04-21 07:06] LABS: BUN - UREA NITROGEN 14 mg/dL (7-25); CALCIUM SERUM 10.3 mg/dL (8.6-10.3); CARBON DIOXIDE 32.2 mEq/L (21.0-31.0); CHLORIDE 96 mEq/L (98-107); CREATININE - SERUM 0.4 mg/dL (0.6-1.2); GLUCOSE 127 mg/dL (70-105); POTASSIUM SERUM 4.2 mEq/L (3.5-5.1); SODIUM SERUM 133 mEq/L (136-145)
[2016-04-21] MEDS: Budesonide 0.5 Mg/2 mL Ud HHN SCH ×2 (07:26→19:11)
--- NOTE | 2016-04-21 07:42 | Progress Notes ---
SUBJECTIVE: The patient is asleep. The patient is on oxygen via trach site. The patient is receiving inpatient neb treatment. The patient is receiving inpatient rehab therapy. The patient has a 1:1 sitter. OBJECTIVE: VITAL SIGNS: Temperature 98.3, pulse 100, blood pressure 131/83, respiratory rate 18, and O2 sat is 100% on trach collar. CARDIOVASCULAR: S1 and S2. RESPIRATORY: Rales. GASTROINTESTINAL: Soft. Positive bowel sounds. LABORATORY DATA: Hematology: WBC 17.9, hemoglobin per labs, hematocrit per labs, platelet count of 621. No left shift noted. ESR is 81. Chemistry: Sodium is 130, potassium 3.9, chloride 96, bicarb 30, anion gap 7.8, BUN 10, creatinine 0.4. GFR is more than 60. Glucose is 106. Calcium is 10.8. C-reactive 1.0. Vancomycin trough is 9.9. ASSESSMENT: 1. Sepsis (resolved). 2. Pneumonia secondary to methicillin-resistant Staphylococcus aureus (treated). 3. Urinary tract infection secondary to yeast (treated). 4. Respiratory failure (acute). 5. Status post trach. 6. Anxiety. 7. Bipolar disorder. 8. Debility. 9. Generalized weakness. 10. History of alcohol abuse. 11. History of methamphetamine abuse. 12. Cerebrovascular accident. PLAN: Continue current medication and treatment. Obtain labs in a.m. Continue with oxygenation. Continue with inpatient rehab therapy. Further recommendation per consult. manager fraud will arrange for transfer to subacute facility. ADDENDUM: Abdominal ultrasound was performed on April 20 is unremarkable. Lower extremity ultrasound from April 18 is negative for DVT. JOB# [id number] [facility]
[2016-04-21] MEDS: Potassium Chloride Elixir 20 mEq /15 mL UDC GT SCH (08:29)
[2016-04-21] MEDS: Ferrous Sulfate 300 MG/5 ML UDC GT SCH (08:29)
[2016-04-21] MEDS: Lactobacillus Rhamnosus 10 Billion CFU Capsule PO SCH (08:30)
[2016-04-21] MEDS: Multivitamin w/ Minerals Tab GT SCH (08:30)
[2016-04-21] MEDS: Chlorhexidine Gluconate 0.12% 15mL Mouthwash MM SCH ×2 (09:00→20:04)
[2016-04-21 09:08] LABS: EOSINOPHIL 2 % (0-5); NEUTROPHILS 47 % (40-80); TOTAL CELLS COUNTED 100
[2016-04-21 09:09] LABS: PLATELET ESTIMATE INCREASED PLATELETS (NORMAL); PLATELET MORPHOLOGY NORMAL (NORMAL)
[2016-04-21] MEDS: Atorvastatin Calcium 10 MG TAB GT SCH (20:04)
[2016-04-22] MEDS: Albuterol/Ipratropium Neb 3 ML AERS HHN SCH ×4 (01:15→19:17)
[2016-04-22] MEDS: Hydrocodone/APAP 10 mg/325 mg Tab PO PRN ×3 (04:44→20:27)
--- NOTE | 2016-04-22 05:58 | Progress Notes ---
Case was discussed with staff of the patient, reviewed records. The patient has been doing much better. She is sleeping well, eating well. She has NG tube. She is still intubated, has a tracheostomy tube. She ____ she is calmer, not pulling on her tubes as she was. She seems to be showing progress; however, I am not sure what the medical doctor would do with her. No side effects of the medications. No sedation and no nausea. The patient needs to follow up with the psychiatrist upon discharge. Thank you very much for allowing me to participate in the care of this most interesting lady. JOB# [id number]
[2016-04-22 06:57] LABS: HEMATOCRIT 30.1 % (35.0-45.0); HEMOGLOBIN 10.2 gm/dL (11.7-15.5); MEAN CORPUSCULAR HEMOGLOBIN 29.8 pg (27.0-31.0); MEAN CORPUSCULAR HGB CONC 33.9 pg (28.0-36.0); MEAN PLATELET VOLUME 7.9 fl; PLATELET COUNT 512 Th/cmm (150-400); RED BLOOD COUNT 3.42 Mil/cmm (3.80-5.10); RED CELL DISTRIBUTION WIDTH 15.7 % (11.5-20.0); WHITE BLOOD COUNT 10.6 Th/cmm (4.8-10.8)
[2016-04-22 07:17] LABS: BUN - UREA NITROGEN 15 mg/dL (7-25); BUN/CREATININE RATIO 37.5; CALCIUM SERUM 10.2 mg/dL (8.6-10.3); CARBON DIOXIDE 33.2 mEq/L (21.0-31.0); CHLORIDE 94 mEq/L (98-107); CREATININE - SERUM 0.4 mg/dL (0.6-1.2); GLUCOSE 105 mg/dL (70-105); POTASSIUM SERUM 4.2 mEq/L (3.5-5.1); SODIUM SERUM 134 mEq/L (136-145)
[2016-04-22 07:28] LABS: NEUTROPHILS 45 % (40-80); PLATELET ESTIMATE INCREASED PLATELETS (NORMAL); PLATELET MORPHOLOGY NORMAL (NORMAL); TOTAL CELLS COUNTED 100
[2016-04-22] MEDS: Budesonide 0.5 Mg/2 mL Ud HHN SCH ×2 (07:30→19:18)
--- NOTE | 2016-04-22 08:03 | Progress Notes ---
SUBJECTIVE: The patient is awake, alert. The patient is on oxygen via trach site. The patient received inpatient neb treatment. The patient received inpatient rehab therapy. The patient has one-to-one sitter. The patient is on IV fluids. OBJECTIVE: VITAL SIGNS: Temperature 98.2, pulse 84, blood pressure 105/70, respiratory rate 19, O2 saturation 100% via trach collar. CARDIOVASCULAR: S1, S2. RESPIRATORY: Rales. GASTROINTESTINAL: Soft, positive bowel sounds. Labs on the patient, hematology, WBC of 11.2, hemoglobin 10.7, hematocrit 30.8, platelet count 554, 15% eosinophils. Chemistry, sodium 133, potassium 4.2, bicarbonate 32, anion gap 9, BUN 14, creatinine 0.4, GFR is more than 60, glucose 127 and calcium 10.3. MICROBIOLOGY: Sputum culture from April 01 shows MRSA. MRSA screen from April 01 negative. Urine culture from April 01 shows yeast. Blood culture from April 05 negative. Blood culture from April 17 shows no growth. ASSESSMENT: 1. Leukocytosis. 2. Anemia. 3. Thrombocytosis. 4. Hyponatremia. 6. Sepsis (resolved). 7. Pneumonia secondary to methicillin-resistant staphylococcus aureus (treated). 8. Urinary tract infection secondary to yeast (treated). 9. Respiratory failure (acute). 10. Status post trach. 11. Anxiety disorder. 12. Bipolar disorder. 13. Debility and generalized weakness. 14. History of alcohol abuse. 15. History of methamphetamine abuse. 16. History of cerebrovascular accident. PLAN: Continue current medication. Routine labs in a.m. Continue weaning of oxygenation. Continue inpatient rehab therapy. Further recommendations per consults. manager of drilling will arrange for transfer to subacute facility. JOB# [id number] [email or web address]
[2016-04-22] MEDS: Ferrous Sulfate 300 MG/5 ML UDC GT SCH (08:52)
[2016-04-22] MEDS: Potassium Chloride Elixir 20 mEq /15 mL UDC GT SCH (08:52)
[2016-04-22] MEDS: Multivitamin w/ Minerals Tab GT SCH (08:53)
[2016-04-22] MEDS: Lactobacillus Rhamnosus 10 Billion CFU Capsule PO SCH (08:53)
--- NOTE | 2016-04-22 10:33 | Diagnostic Imaging Report ---
CHEST X-RAY: AP view INDICATION: Respiratory failure COMPARISON: 04/15/2016 FINDINGS: Tracheostomy tube is stable. Persistent interstitial infiltrates are again noted. There is elevation of the right hemidiaphragm. Improved lung aeration is noted. Borderline prominent heart is noted. Small left effusion is noted. IMPRESSION: Improved lung aeration. Persistent interstitial infiltrates are again noted.
[2016-04-22] MEDS: Ipratropium Neb 0.5 mg/2.5 mL UD HHN SCH ×2 (11:11→15:22)
--- NOTE | 2016-04-22 16:51 | Progress Notes ---
PULMONARY PROGRESS NOTE PROBLEM LIST: [id number] respiratory failure. SYMPTOMS: Nil. SUBJECTIVE: The patient is awake and alert. Denies of any other issues. OBJECTIVE: VITAL SIGNS: The patient's recorded vitals temperature is 98.4, blood pressure 106/59, saturation is 100% on 40% cool aerosol by mask. ENT: Shows no new changes. NECK: Trach site appears to be okay. CHEST: Shows diminished with occasional secretory noise. LABORATORY DATA: White count is 11,002 trending down, electrolytes are okay. ASSESSMENT: The patient is clinically stable with icgow-oh-ggrypgn respiratory failure, significantly improved, appears to be probably baseline normal. PLAN: Continue supportive care, placement, etc. and we will go from there. JOB# [id number]
--- NOTE | 2016-04-22 20:03 | Progress Notes ---
SUBJECTIVE: The patient is awake and alert. The patient is on oxygen via trach site. The patient received inpatient neb treatment. The patient received inpatient rehab therapy. The patient is on 1:1 sitter for history of suicidal ideation. The patient is on IV fluids. OBJECTIVE: VITAL SIGNS: Temperature 98.7, pulse 82, blood pressure per nursing, respiratory rate 18, O2 sat 100% via trach collar. CARDIOVASCULAR: S1 and S2. RESPIRATORY: Rales. ABDOMEN: Soft. Positive bowel sounds. LABORATORY DATA: Hematology: 10.6, hemoglobin 10.2, hematocrit 30.1, platelet count 512, ESR is 91. Chemistry: Sodium 134, potassium 4.2, chloride 94, bicarb 83, anion gap 11, BUN 15, creatinine 0.4, GFR is more than 60, glucose is 105, calcium 10.2. Microbiology: Sputum culture on 04/01/2016, shows MRSA. MRSA screen 04/01/2016, negative. Urine culture from 04/01/2016, shows yeast. Blood culture from 04/05/2016 negative and blood culture 04/17/2016 shows no growth. ASSESSMENT: 1. Sepsis (resolved). 2. Pneumonia secondary to methicillin-resistant Staphylococcus aures (treated) . 3. Urinary tract infection secondary to yeast (treated). 4. Respiratory failure (acute). 5. Status post trach. 6. Anxiety disorder, bipolar disorder 7. History of alcohol abuse. 8. History of methamphetamine abuse. 9. History of cerebrovascular accident. 10. History of suicidal ideation. 11. Anemia. 12. Thrombocytosis. 13. Hyponatremia. PLAN: Continue current medications and treatment. Obtain labs in a.m. Continue weaning from oxygenation. Continue inpatient neb treatment. Continue inpatient rehab therapy. Further consults. Case management will arrange for transfer to subacute facility. JOB# [id number] [facility]
[2016-04-22] MEDS: Atorvastatin Calcium 10 MG TAB GT SCH (20:27)
[2016-04-22] MEDS: Chlorhexidine Gluconate 0.12% 15mL Mouthwash MM SCH ×2 (20:29→20:41)
--- NOTE | 2016-04-22 21:52 | Progress Notes ---
Case was discussed with staff of the patient, reviewed records. The patient continues to do the same; however, she is much more stable. She is sleeping better. She is on an NG tube. She is compliant with the medication with no side effects, no sedation, no nausea. She denies any current auditory or visual hallucination or paranoia. She denies any intent to harm herself or anybody. She is compliant with the medication with no side effects, no sedation, no nausea, no extrapyramidal symptoms. The patient needs to follow up with the psychiatrist upon discharge. Thank you very much for allowing me to participate in the care of this most interesting lady. JOB# [id number]
[2016-04-23] MEDS: Albuterol/Ipratropium Neb 3 ML AERS HHN SCH ×4 (02:30→19:39)
[2016-04-23] MEDS: Budesonide 0.5 Mg/2 mL Ud HHN SCH ×2 (06:42→19:39)
[2016-04-23 07:16] LABS: % BASOPHILS 0.3 % (0.0-2.0); % EOSINOPHILS 2.3 % (0.0-5.0); % MONOCYTES 9.7 % (2.0-10.0); % NEUTROPHILS 47.7 % (40.0-80.0); HEMATOCRIT 31.4 % (35.0-45.0); HEMOGLOBIN 10.8 gm/dL (11.7-15.5); MEAN CELL VOLUME 87.1 fl (81-100); MEAN CORPUSCULAR HEMOGLOBIN 29.9 pg (27.0-31.0); MEAN CORPUSCULAR HGB CONC 34.4 pg (28.0-36.0); MEAN PLATELET VOLUME 7.9 fl; NEUTROPHILE ABSOLUTE 5.6 Th/cmm (1.8-8.0); PLATELET COUNT 499 Th/cmm (150-400); RED CELL DISTRIBUTION WIDTH 15.9 % (11.5-20.0); WHITE BLOOD COUNT 11.9 Th/cmm (4.8-10.8)
[2016-04-23 07:29] LABS: ANION GAP 11.8 (7.0-16.0); BUN - UREA NITROGEN 12 mg/dL (7-25); CALCIUM SERUM 10.5 mg/dL (8.6-10.3); CARBON DIOXIDE 32.3 mEq/L (21.0-31.0); CHLORIDE 94 mEq/L (98-107); CREATININE - SERUM 0.4 mg/dL (0.6-1.2); GLUCOSE 100 mg/dL (70-105); POTASSIUM SERUM 4.1 mEq/L (3.5-5.1); SODIUM SERUM 134 mEq/L (136-145)
[2016-04-23] MEDS: Potassium Chloride Elixir 20 mEq /15 mL UDC GT SCH (09:24)
[2016-04-23] MEDS: Ferrous Sulfate 300 MG/5 ML UDC GT SCH (09:24)
[2016-04-23] MEDS: Lactobacillus Rhamnosus 10 Billion CFU Capsule PO SCH (09:26)
[2016-04-23] MEDS: Multivitamin w/ Minerals Tab GT SCH (09:26)
[2016-04-23] MEDS: Chlorhexidine Gluconate 0.12% 15mL Mouthwash MM SCH ×2 (09:27→21:23)
[2016-04-23] MEDS: Ipratropium Neb 0.5 mg/2.5 mL UD HHN SCH ×3 (10:39→22:40)
[2016-04-23] MEDS: Hydrocodone/APAP 10 mg/325 mg Tab PO PRN (13:12)
[2016-04-23] MEDS: Atorvastatin Calcium 10 MG TAB GT SCH (21:19)
--- NOTE | 2016-04-23 22:15 | Progress Notes ---
PULMONARY PROGRESS NOTE: PROBLEM LIST: 1. Persistent respiratory failure. 2. Acute on chronic bilateral infiltrate appears to be improving. 3. History of previous drug use with history of encephalopathy with possibly cerebrovascular accident affecting the left side. SYMPTOMS: Nil complaining, she is okay, "behaving good." No respiratory distress on trach mask 40%. PHYSICAL EXAMINATION: VITAL SIGNS: Pulse is in 80s, respirations in low 20s, saturation 99% on 40% trach collar. ENT: Shows no new changes. CHEST: Shows occasional secretory noise, otherwise unremarkable. HEART: Regular. ABDOMEN: Soft, nontender. LABORATORY DATA: White count is 11.9. Electrolytes are okay. ASSESSMENT: The patient clinically appears to be reasonably stable, not much changed. PLANS AND SUGGESTIONS: Continue current supportive care, respiratory care. Await for the placement, etc., and go from there. JOB# [id number]
[2016-04-24] MEDS: Albuterol/Ipratropium Neb 3 ML AERS HHN SCH ×4 (00:55→18:52)
[2016-04-24] MEDS: Ipratropium Neb 0.5 mg/2.5 mL UD HHN SCH ×4 (03:00→22:39)
[2016-04-24] MEDS: Budesonide 0.5 Mg/2 mL Ud HHN SCH ×2 (06:42→18:52)
[2016-04-24] MEDS: Ferrous Sulfate 300 MG/5 ML UDC GT SCH (09:05)
[2016-04-24] MEDS: Lactobacillus Rhamnosus 10 Billion CFU Capsule PO SCH (09:06)
[2016-04-24] MEDS: Potassium Chloride Elixir 20 mEq /15 mL UDC GT SCH (09:07)
[2016-04-24] MEDS: Multivitamin w/ Minerals Tab GT SCH (09:07)
[2016-04-24] MEDS: Chlorhexidine Gluconate 0.12% 15mL Mouthwash MM SCH ×2 (10:00→20:45)
--- NOTE | 2016-04-24 10:34 | Diagnostic Imaging Report ---
History: Dyspnea Comparison:[05/20/2016 Findings:[No change in positioning of tracheostomy tube. There is elevation of the right hemidiaphragm. Bilateral bronchovascular prominence.] Impression:[Compared to previous exam continuing evidence of mild bilateral infiltrates or congestive changes.]
[2016-04-24 11:39] LABS: % BASOPHILS 0.2 % (0.0-2.0); % EOSINOPHILS 2.3 % (0.0-5.0); % LYMPHOCYTES 36.5 % (20.0-50.0); % MONOCYTES 10.5 % (2.0-10.0); % NEUTROPHILS 50.5 % (40.0-80.0); HEMATOCRIT 31.8 % (35.0-45.0); HEMOGLOBIN 10.8 gm/dL (11.7-15.5); MEAN CELL VOLUME 87.8 fl (81-100); MEAN CORPUSCULAR HEMOGLOBIN 29.9 pg (27.0-31.0); MEAN PLATELET VOLUME 7.4 fl; NEUTROPHILE ABSOLUTE 5.5 Th/cmm (1.8-8.0); PLATELET COUNT 464 Th/cmm (150-400); RED BLOOD COUNT 3.63 Mil/cmm (3.80-5.10); RED CELL DISTRIBUTION WIDTH 15.4 % (11.5-20.0); WHITE BLOOD COUNT 10.7 Th/cmm (4.8-10.8)
[2016-04-24] MEDS: Atorvastatin Calcium 10 MG TAB GT SCH (20:44)
[2016-04-25] MEDS: Albuterol/Ipratropium Neb 3 ML AERS HHN SCH ×4 (01:06→19:15)
[2016-04-25] MEDS: Ipratropium Neb 0.5 mg/2.5 mL UD HHN SCH ×4 (02:49→22:42)
--- NOTE | 2016-04-25 04:55 | Progress Notes ---
PULMONARY PROGRESS NOTE PROBLEM LIST: 1. Acute on chronic respiratory failure, stable. 2. History of MRSA. 3. The patient has a tracheostomy with left hemiplegia. SYMPTOMS: Nil. She is trying to talk through the trach, eat food, etc. No specific new other symptoms. Appears to be fairly very cooperative. PHYSICAL EXAMINATION: VITAL SIGNS: Temperature is 98, respirations 20, saturation 99% on 40% of oxygen. NECK: Trach site appears to be reasonably stable, not much changed. CHEST: Shows occasional secretory noise with diminished air entry. HEART: Regular. ABDOMEN: Soft, nontender. EXTREMITIES: Show no peripheral edema. LABORATORY DATA: White count has dropped to 10.9, hemoglobin 10.8. ASSESSMENT: The patient is clinically stable, not much changed. PLANS AND SUGGESTIONS: We will go ahead and continue current treatment. We will discuss with [employer]. If they have a smaller size cuffless fenestrated trach tube, we can change it and see if we can handle it with capping on it and go from there. JOB# [id number]
[2016-04-25] MEDS: Budesonide 0.5 Mg/2 mL Ud HHN SCH ×2 (06:42→19:15)
[2016-04-25 08:47] LABS: ANION GAP 5.4 (7.0-16.0); BUN - UREA NITROGEN 15 mg/dL (7-25); BUN/CREATININE RATIO 37.5; CARBON DIOXIDE 30.6 mEq/L (21.0-31.0); CHLORIDE 99 mEq/L (98-107); CREATININE - SERUM 0.4 mg/dL (0.6-1.2); GLUCOSE 115 mg/dL (70-105); SODIUM SERUM 131 mEq/L (136-145)
[2016-04-25] MEDS: Ferrous Sulfate 300 MG/5 ML UDC GT SCH (08:58)
[2016-04-25] MEDS: Potassium Chloride Elixir 20 mEq /15 mL UDC GT SCH (08:59)
[2016-04-25] MEDS: Chlorhexidine Gluconate 0.12% 15mL Mouthwash MM SCH (09:01)
[2016-04-25] MEDS: Lactobacillus Rhamnosus 10 Billion CFU Capsule PO SCH (09:01)
[2016-04-25] MEDS: Multivitamin w/ Minerals Tab GT SCH (09:01)
[2016-04-25] MEDS: Hydrocodone/APAP 10 mg/325 mg Tab PO PRN ×2 (12:31→20:47)
[2016-04-25] MEDS: Atorvastatin Calcium 10 MG TAB GT SCH (20:47)
[2016-04-26] MEDS: Albuterol/Ipratropium Neb 3 ML AERS HHN SCH ×5 (00:41→19:15)
[2016-04-26] MEDS: Ipratropium Neb 0.5 mg/2.5 mL UD HHN SCH ×3 (03:07→15:28)
--- NOTE | 2016-04-26 03:31 | Progress Notes ---
PROBLEM LIST: 1. Chronic respiratory failure. 2. ____. 3. Mild degree of pulmonary fibrosis probably from previous pneumonia, left hemiplegia, exact etiology not clear, may be illicit drug use in the past. SYMPTOMS: Nil. No specific new symptoms. Appears to be cooperative, reasonably well, though periodically got agitated and restless. PHYSICAL EXAMINATION: GENERAL: Not in any acute distress. VITAL SIGNS: The patient is on 40% trach mask, afebrile, pulse is in 70s, blood pressure 125/83 and saturation 99 on 40%. ENT: Shows no new acute changes. CHEST: Shows occasional rhonchi with diminished air entry. HEART: Regular. EXTREMITIES: Shows no peripheral edema. ASSESSMENT: The patient clinically seems to be stable. PLANS AND SUGGESTIONS: We will go ahead and await for specialized trach, discussed with RT. Once it is changed, we can change it and cap it to see if she can tolerate before decannulation and go from there. JOB# [id number]
--- NOTE | 2016-04-26 05:36 | Progress Notes ---
Case was discussed with staff of the patient, reviewed records. The patient continues to ____. Apparently, she will need to have a special tracheostomy and then she will be going. She is not acting out. She denies any current intent to harm herself or anybody. She denies any auditory or visual hallucination or paranoia, trying to get her ____, so she could speak, she can able to express herself well. I would recommend to continue medication, Risperdal 1 mg twice a day. Needs followup with a psychiatrist upon discharge. Thank you very much for allowing me to participate in the care of this most interesting lady. JOB# [id number]
--- NOTE | 2016-04-26 05:50 | Progress Notes ---
SUBJECTIVE: The patient is awake and alert. The patient is on oxygen via trach site. The patient has 1:1 sitter. The patient is receiving inpatient rehab therapy. The patient is on inpatient nebulizer treatment. The patient is on antifungal medications. The patient is on IV fluids. OBJECTIVE: VITAL SIGNS: Temperature 98.3, pulse 89, blood pressure 125/83, respiratory rate 19, O2 saturation 100% on oxygen via trach collar. CARDIOVASCULAR: S1 and S2. RESPIRATORY: Few rales. GASTROINTESTINAL: Soft. Positive bowel sounds. LABORATORY DATA: Hematology: WBC 10.7, hemoglobin 10.8, hematocrit 31.8, platelet count of 464, 10% eosinophils. Chemistry: Sodium 131, potassium 4.0, chloride 99, bicarbonate 30, anion gap of 5.4, BUN 15, creatinine 0.4. GFR is more than 60. Glucose is 115. Calcium is 11.0. MICROBIOLOGY: Sputum culture from April 01 shows MRSA. MRSA screen from April 01 is negative. Urine culture from April 01 shows yeast. Blood culture from April 05 is negative. Blood culture from April 17 is negative. ASSESSMENT: 1. Sepsis (resolved). 2. Pneumonia secondary to methicillin-resistant Staphylococcus aureus (treated). 3. Urinary tract infection secondary to yeast. 4. Respiratory failure (acute). 5. Status post tracheostomy. 6. Anxiety disorder. 7. Bipolar disorder. 8. History of alcohol abuse. 9. History of methamphetamine abuse. 10. Cerebrovascular accident. 11. Suicidal ideation. 12. Anemia. 13. Thrombocytosis. 14. Hyponatremia. 15. Hyperglycemia. 16. Hypercalcemia. PLAN: Continue current medication and treatment. Obtain labs in a.m. Continue inpatient rehab therapy. Continue weaning from oxygenation. freelance digital project manager will arrange for transfer to subacute facility. The patient's calcium remains elevated. We will obtain Endocrine consultation regarding hypercalcemia. JOB# [id number]
[2016-04-26] MEDS: Hydrocodone/APAP 10 mg/325 mg Tab PO PRN ×3 (06:12→21:55)
[2016-04-26] MEDS: Budesonide 0.5 Mg/2 mL Ud HHN SCH ×2 (07:44→19:15)
[2016-04-26] MEDS: Chlorhexidine Gluconate 0.12% 15mL Mouthwash MM SCH (08:05)
[2016-04-26] MEDS: Potassium Chloride Elixir 20 mEq /15 mL UDC GT SCH (08:17)
[2016-04-26] MEDS: Lactobacillus Rhamnosus 10 Billion CFU Capsule PO SCH (08:20)
[2016-04-26] MEDS: Ferrous Sulfate 300 MG/5 ML UDC GT SCH (08:20)
[2016-04-26] MEDS: Multivitamin w/ Minerals Tab GT SCH (08:21)
[2016-04-26] MEDS: Atorvastatin Calcium 10 MG TAB GT SCH (21:54)
[2016-04-27] MEDS: Albuterol/Ipratropium Neb 3 ML AERS HHN SCH ×4 (02:07→19:47)
--- NOTE | 2016-04-27 02:28 | Progress Notes ---
Case was discussed with staff of the patient. The patient is doing much better. She is alert. She denies any intent to harm himself or anybody. Denies any hallucination or paranoia and not delusional. She tolerated Risperdal. No side effects of the medication. No sedation, no nausea and no extrapyramidal symptoms. The patient needs to follow up with the psychiatrist and continue medication. Thank you very much for allowing me to participate in the care of this most interesting lady. JOB# [id number]
--- NOTE | 2016-04-27 04:50 | Progress Notes ---
PULMONARY PROGRESS NOTE PROBLEM LIST: 1. Chronic respiratory failure. 2. Bilateral interstitial lung disease, probably from previous pneumonia. 3. MRSA ____ colonization 4. History of previous drug abuse with left hemiparesis. SYMPTOMS: Nil. Wants to eat ice cream. No specific new other symptoms. PHYSICAL EXAMINATION: VITAL SIGNS: Temperature is 97, heart rate is in low 80s, and the patient's blood pressure is 120/68 and saturation 98 on 40%. ENT: Shows no new changes. NECK: Trach site appears to be okay. CHEST: Shows diminished air entry with occasional rales. HEART: Regular. ABDOMEN: Soft and nontender. EXTREMITIES: Shows no peripheral edema. ASSESSMENT: The patient is clinically stable respiratory acosta with persistent chronic respiratory failure with previous history of stroke, etc. PLANS AND SUGGESTIONS: We will change the trach when it is available. In the meantime, continue current treatment. Discussed with the patient about not able to eat or drink till trach is changed and see how the speech therapy before doing that and go from there. JOB# [id number]
[2016-04-27] MEDS: Ipratropium Neb 0.5 mg/2.5 mL UD HHN SCH ×3 (08:00→15:59)
[2016-04-27] MEDS: Budesonide 0.5 Mg/2 mL Ud HHN SCH ×2 (08:25→19:47)
[2016-04-27] MEDS: Ferrous Sulfate 300 MG/5 ML UDC GT SCH (09:27)
[2016-04-27] MEDS: Potassium Chloride Elixir 20 mEq /15 mL UDC GT SCH (09:28)
[2016-04-27] MEDS: Chlorhexidine Gluconate 0.12% 15mL Mouthwash MM SCH ×2 (09:30→20:24)
[2016-04-27] MEDS: Multivitamin w/ Minerals Tab GT SCH (09:30)
[2016-04-27] MEDS: Lactobacillus Rhamnosus 10 Billion CFU Capsule PO SCH (09:30)
[2016-04-27 10:05] LABS: % BASOPHILS 0.4 % (0.0-2.0); % EOSINOPHILS 2.8 % (0.0-5.0); % LYMPHOCYTES 40.4 % (20.0-50.0); % MONOCYTES 10.3 % (2.0-10.0); % NEUTROPHILS 46.1 % (40.0-80.0); HEMATOCRIT 34.3 % (35.0-45.0); HEMOGLOBIN 11.2 gm/dL (11.7-15.5); MEAN CELL VOLUME 87.8 fl (81-100); MEAN CORPUSCULAR HEMOGLOBIN 28.7 pg (27.0-31.0); MEAN CORPUSCULAR HGB CONC 32.7 pg (28.0-36.0); NEUTROPHILE ABSOLUTE 4.3 Th/cmm (1.8-8.0); PLATELET COUNT 421 Th/cmm (150-400); RED BLOOD COUNT 3.91 Mil/cmm (3.80-5.10); RED CELL DISTRIBUTION WIDTH 15.2 % (11.5-20.0); WHITE BLOOD COUNT 9.4 Th/cmm (4.8-10.8)
--- NOTE | 2016-04-27 10:12 | Progress Notes ---
SUBJECTIVE: The patient is on oxygen via trach site. The patient is receiving inpatient neb treatment. The patient is on tube feedings. The patient is receiving inpatient rehab therapy. The patient is on IV fluids. OBJECTIVE: VITAL SIGNS: Temperature 98.5, pulse 84, blood pressure 128/68, respiratory rate 20, and O2 sat 98% on oxygen via trach site. CARDIOVASCULAR: S1 and S2. RESPIRATORY: Rales. GASTROINTESTINAL: Soft. Positive bowel sounds. LABORATORY DATA: Hematology: WBC 8.7, hemoglobin 10.8, hematocrit 31.8, and platelet count of ____, 10% monocytes. Chemistry: Sodium 131, potassium 4.0, chloride ____, bicarb 30, anion gap 5.4. BUN 15, creatinine 0.4. GFR is more than 60. Glucose is ____. Calcium is ____. MICROBIOLOGY: Sputum culture from April 01 shows MRSA. MRSA from April 01 is negative. Urine culture from April 01 shows yeast. Blood culture from April 05 is negative. Blood culture from April 17 is negative. ASSESSMENT: 1. Sepsis (resolved). 2. Pneumonia secondary to methicillin-resistant Staphylococcus aureus (treated). 3. Urinary tract infection secondary to yeast (treated). 4. Respiratory failure (acute). 5. Status post tracheostomy. 6. Anxiety disorder. 7. Bipolar disorder. 8. History of alcohol abuse. 9. History of methamphetamine abuse. 10. Cerebrovascular accident. 11. ____. 12. Anemia. 13. Thrombocytosis. 14. Hyponatremia. 15. Hyperglycemia. 16. Hypercalcemia. PLAN: Continue current management and treatment. Obtain labs in a.m. Continue weaning from oxygenation. Continue ____. Obtain Endocrine consultation regarding hyperglycemia. manager of information will arrange for transfer to subacute facility. JOB# [id number]
[2016-04-27 10:29] LABS: ALB/GLOB RATIO 0.9 (1.0-1.8); ALKALINE PHOSPHATASE 71 U/L (34-104); ANION GAP 12.1 (7.0-16.0); BILIRUBIN,TOTAL 0.4 mg/dL (0.3-1.0); BUN - UREA NITROGEN 15 mg/dL (7-25); CALCIUM SERUM 11.4 mg/dL (8.6-10.3); CARBON DIOXIDE 32.3 mEq/L (21.0-31.0); CHLORIDE 96 mEq/L (98-107); CREATININE - SERUM 0.6 mg/dL (0.6-1.2); GLUCOSE 104 mg/dL (70-105); MAGNESIUM 1.9 mg/dL (1.9-2.7); POTASSIUM SERUM 4.4 mEq/L (3.5-5.1); SGOT 18 U/L (13-39); SGPT/ALT 13 U/L (7-52); SODIUM SERUM 136 mEq/L (136-145); URIC ACID 5.9 mg/dL (2.3-6.6)
[2016-04-27 18:00] LABS: URINE BILIRUBIN NEGATIVE (NEGATIVE); URINE BLOOD SMALL (NEGATIVE); URINE COLOR YELLOW; URINE GLUCOSE (UA) NEGATIVE (NEGATIVE); URINE KETONE NEGATIVE (NEGATIVE); URINE PROTEIN NEGATIVE (NEGATIVE); URINE UROBILINOGEN 0.2 E.U./dL (0.2 - 1.0)
[2016-04-27 18:01] LABS: URINE AMORPHOUS SEDIMENT FEW URATES (NONE SEEN); URINE BACTERIA FEW /hpf (NONE SEEN); URINE EPITHELIAL CELLS FEW /lpf (FEW)
[2016-04-27] MEDS: Atorvastatin Calcium 10 MG TAB GT SCH (20:23)
[2016-04-28] MEDS: Albuterol/Ipratropium Neb 3 ML AERS HHN SCH ×4 (00:38→19:14)
--- NOTE | 2016-04-28 00:50 | Progress Notes ---
Case was discussed with staff of the patient, reviewed records. The patient is much better. She is still unable to talk. No suicidal ideation, homicidal ideation and no paranoia. Is supposed to get a ____, so she can talk, though she can express herself very well. She can write ____. She seems to understand questions and answer appropriately. No side effects with the medication, no sedation, no nausea and no extrapyramidal symptoms. I would recommend the patient follow up with the psychiatrist upon discharge. Thank you very much for allowing me to participate in the care of this most interesting lady. JOB# [id number]
[2016-04-28] MEDS: Budesonide 0.5 Mg/2 mL Ud HHN SCH ×2 (07:56→19:14)
[2016-04-28] MEDS: Ipratropium Neb 0.5 mg/2.5 mL UD HHN SCH ×2 (07:59→23:14)
[2016-04-28 08:01] LABS: % BASOPHILS 0.9 % (0.0-2.0); % EOSINOPHILS 1.9 % (0.0-5.0); % LYMPHOCYTES 36.3 % (20.0-50.0); % MONOCYTES 10.5 % (2.0-10.0); % NEUTROPHILS 50.4 % (40.0-80.0); HEMOGLOBIN 11.3 gm/dL (11.7-15.5); MEAN CELL VOLUME 87.3 fl (81-100); MEAN CORPUSCULAR HEMOGLOBIN 29.1 pg (27.0-31.0); MEAN CORPUSCULAR HGB CONC 33.3 pg (28.0-36.0); MEAN PLATELET VOLUME 7.9 fl; NEUTROPHILE ABSOLUTE 5.3 Th/cmm (1.8-8.0); PLATELET COUNT 388 Th/cmm (150-400); RED BLOOD COUNT 3.89 Mil/cmm (3.80-5.10); RED CELL DISTRIBUTION WIDTH 15.4 % (11.5-20.0); WHITE BLOOD COUNT 10.5 Th/cmm (4.8-10.8)
[2016-04-28 08:22] LABS: ALKALINE PHOSPHATASE 71 U/L (34-104); AMYLASE SERUM 41 U/L (29-103); ANION GAP 13.4 (7.0-16.0); BILIRUBIN,TOTAL 0.4 mg/dL (0.3-1.0); BUN - UREA NITROGEN 18 mg/dL (7-25); BUN/CREATININE RATIO 25.7; CALCIUM SERUM 12.1 mg/dL (8.6-10.3); CARBON DIOXIDE 30.7 mEq/L (21.0-31.0); CHLORIDE 94 mEq/L (98-107); CREATININE - SERUM 0.7 mg/dL (0.6-1.2); GLUCOSE 116 mg/dL (70-105); LIPASE 30 U/L (11-82); MAGNESIUM 1.9 mg/dL (1.9-2.7); PHOSPHOROUS 5.5 mg/dL (2.5-5.0); POTASSIUM SERUM 4.1 mEq/L (3.5-5.1); SGOT 18 U/L (13-39); SGPT/ALT 11 U/L (7-52); SODIUM SERUM 134 mEq/L (136-145)
[2016-04-28] MEDS: Chlorhexidine Gluconate 0.12% 15mL Mouthwash MM SCH ×2 (08:30→20:39)
[2016-04-28] MEDS: Potassium Chloride Elixir 20 mEq /15 mL UDC GT SCH (08:51)
[2016-04-28] MEDS: Multivitamin w/ Minerals Tab GT SCH (08:52)
[2016-04-28] MEDS: Lactobacillus Rhamnosus 10 Billion CFU Capsule PO SCH (08:52)
[2016-04-28] MEDS: Hydrocodone/APAP 10 mg/325 mg Tab PO PRN (08:53)
[2016-04-28] MEDS: Ferrous Sulfate 300 MG/5 ML UDC GT SCH (09:30)
--- NOTE | 2016-04-28 09:30 | Progress Notes ---
SUBJECTIVE: The patient is awake and alert. The patient is on oxygen via trach site. The patient received inpatient rehab therapy. The patient received inpatient neb treatment. The patient is on tube feedings. The patient is on 1:1 sitter present. PHYSICAL EXAMINATION: VITAL SIGNS: Temperature 97.6, pulse 66, blood pressure 111/76, respiratory rate 20, O2 sat was 100% on trach collar. CARDIOVASCULAR: S1 and S2. RESPIRATORY: Rales. GASTROINTESTINAL: Soft. Positive bowel sounds. LABORATORY DATA: Hematology: WBC 9.4, hemoglobin 11.2, hematocrit 34.3, platelet count of 421, 10% monocytes. Chemistry: Sodium 136, potassium 4.4., chloride 96, bicarb 32, anion gap ____, BUN 15, creatinine 0.6. GFR is 160, glucose 104. Uric acid 5.9, calcium is 11.4, phosphorous is 6.0, mag is 1.9, total bili 0.4_. AST 18, ALT 13, alkaline phosphatase ____, total protein 7.9, albumin 3.8, and globulin 4.1. MICROBIOLOGY: No new microbiology results. ____ microbiology results, sputum culture from April 01 showed MRSA. MRSA from April 01 negative. Sputum culture from April 01 showed yeast. Blood cultures from April 05 negative. Blood culture from .April 17 negative. ASSESSMENT: 1. Anemia. 2. Thrombocytosis. 3. Hypercalcemia. 4. Hyperphosphatemia. 5. Sepsis (resolved). 6. Pneumonia secondary to MRSA (treated). 7. Urinary tract infection secondary to yeast (treated). 8. Respiratory failure (acute) 9. Status post tracheostomy. 10. Cerebrovascular accident. 11. History of alcohol abuse and history of methamphetamine abuse. 12. History of suicidal ideation. 13. Weakness and debility. 14. Anxiety disorder. 15. Bipolar disorder. PLAN: Continue current medication and treatment. Obtain labs in a.m. Continue inpatient rehab therapy. Continue inpatient neb treatment. Continue weaning from oxygenation. Continue recommendations per consult. JOB# [id number]
[2016-04-28 12:21] LABS: PARATHYROID HORMONE INTACT <6 pg/mL (15-65)
--- NOTE | 2016-04-28 15:13 | Diagnostic Imaging Report ---
Bilateral lower extremity Doppler venous ultrasound exam HISTORY: Pain/swelling Sonographic sector images were obtained through the deep venous systems of both legs. Associated Doppler data was obtained. The exam demonstrates patency of the common femoral, superficial femoral, popliteal, and posterior tibial veins bilaterally. Specifically, no thrombus is seen. There are normal compressibility and augmentation responses. IMPRESSION: Negative exam for deep vein thrombophlebitis.
--- NOTE | 2016-04-28 15:18 | Infectious Disease Prog Note ---
Infectious Disease Subjective - Review of Systems Subjective: cc mrsa pneummonia haven uti hpi- mrsa screen ordered ros no fever o/e Physical Exam: General: No Acute Distress HEENT: EOMI Bilaterally, PERRLA Bilaterally, Head is normocephalic, atraumatic on inspection. Cardio: +S1/S2 Auscultated, RRR, no murmurs/rubs/gallops noted Respiratory: Clear to Auscultate Bilaterally trach Abdominal: Soft, Nondistended, Nontender to palpation x 4 quadrants Genital/Urinary: Extremities: No Edema noted in the lower extremities Neurological: Cranial Nerves II-XII intact bilaterally, Gait Steady,l Focal Deficits noted. Infectious Disease Objective - Results Result Diagrams: 04/28/16 07:45 04/28/16 07:45 Recent Labs: Laboratory Last Values WBC 10.5 Th/cmm (4.8-10.8) 04/28/16 07:45 RBC 3.89 Mil/cmm (3.80-5.10) 04/28/16 07:45 Hgb 11.3 gm/dL (11.7-15.5) L 04/28/16 07:45 Hct 34.0 % (35.0-45.0) L 04/28/16 07:45 MCV 87.3 fl (81-100) 04/28/16 07:45 MCH 29.1 pg (27.0-31.0) 04/28/16 07:45 MCHC Differential 33.3 pg (28.0-36.0) 04/28/16 07:45 RDW 15.4 % (11.5-20.0) 04/28/16 07:45 Plt Count 388 Th/cmm (150-400) 04/28/16 07:45 MPV 7.9 fl 04/28/16 07:45 Neutrophils % 50.4 % (40.0-80.0) 04/28/16 07:45 Band Neutrophils % 1 % (0-10) 04/16/16 09:45 Lymphocytes % 36.3 % (20.0-50.0) 04/28/16 07:45 Monocytes % 10.5 % (2.0-10.0) H 04/28/16 07:45 Eosinophils % 1.9 % (0.0-5.0) 04/28/16 07:45 Basophils % 0.9 % (0.0-2.0) 04/28/16 07:45 Neutrophils (Manual) 45 % (40-80) 04/22/16 06:26 Lymphocytes 44 % (20-50) 04/22/16 06:26 Monocytes 11 % (2-10) H 04/22/16 06:26 Eosinophils 2 % (0-5) 04/21/16 06:30 Basophils 1 % (0-3) 04/05/16 07:40 Myelocytes 2 % 04/16/16 09:45 Atypical Lymphocytes 2 % 04/05/16 07:40 Platelet Estimate INCREASED PLATELETS (NORMAL) 04/22/16 06:26 Platelet Morphology NORMAL (NORMAL) 04/22/16 06: Anisocytosis 1+ 04/05/16 07:40 RBC Morph Micro Appear NORMAL (NORMAL) 04/22/16 06:26 ESR 91 mm/hr (0-30) H 04/22/16 06:26 PT 9.8 SECONDS (9.5-11.5) 04/10/16 17:26 INR 0.99 (0.5-1.4) 04/10/16 17:26 Specimen Source Arterial 04/07/16 09:00 Sample Site RB 04/07/16 09:00 pH 7.47 (7.35-7.45) H 04/07/16 09:00 pCO2 46.0 mmHg (35.0-45.0) H 04/07/16 09:00 pO2 78.0 mmHg (80.0-100.0) L 04/07/16 09:00 HCO3 33.5 mmol/L (20.0-26.0) H 04/07/16 09:00 Base Excess 8.7 mmol/L (-3.0-3.0) H 04/07/16 09:00 O2 Saturation 96.0 % (92.0-100.0) 04/07/16 09:00 Kenan Test NA 04/07/16 09:00 Vent Rate NA 04/07/16 09:00 Inspired O2 40 04/07/16 09:00 Tidal Volume NA 04/07/16 09:00 PEEP NA 04/07/16 09:00 Pressure (ins/psv/peep) NA 04/07/16 09:00 Critical Value E.GASTON 04/07/16 09:00 Sodium 134 mEq/L (136-145) L 04/28/16 07:45 Potassium 4.1 mEq/L (3.5-5.1) 04/28/16 07:45 Chloride 94 mEq/L (98-107) L 04/28/16 07:45 Carbon Dioxide 30.7 mEq/L (21.0-31.0) 04/28/16 07:45 Anion Gap 13.4 (7.0-16.0) 04/28/16 07:45 BUN 18 mg/dL (7-25) 04/28/16 07:45 Creatinine 0.7 mg/dL (0.6-1.2) 04/28/16 07:45 Est GFR ( Amer) > 60.0 ml/min (>90) 04/28/16 07:45 Est GFR (Non-Af Amer) > 60.0 ml/min 04/28/16 07:45 BUN/Creatinine Ratio 25.7 04/28/16 07:45 Glucose 116 mg/dL (70-105) H 04/28/16 07:45 Uric Acid 5.9 mg/dL (2.3-6.6) 04/27/16 09:45 Calcium 12.1 mg/dL (8.6-10.3) H 04/28/16 07:45 Phosphorus 5.5 mg/dL (2.5-5.0) H 04/28/16 07:45 Magnesium 1.9 mg/dL (1.9-2.7) 04/28/16 07:45 Total Bilirubin 0.4 mg/dL (0.3-1.0) 04/28/16 07:45 Direct Bilirubin 0.13 mg/dL (0.0-0.2) 04/02/16 04:33 AST 18 U/L (13-39) 04/28/16 07:45 ALT 11 U/L (7-52) 04/28/16 07:45 Alkaline Phosphatase 71 U/L (34-104) 04/28/16 07:45 Ammonia 32 umol/L (16-53) 04/05/16 07:40 C-Reactive Protein 0.8 mg/dL (0.0-0.9) 04/22/16 06:26 Total Protein 8.1 gm/dL (6.0-8.3) 04/28/16 07:45 Albumin 4.0 gm/dL (3.7-5.3) 04/28/16 07:45 Globulin 4.1 gm/dL 04/28/16 07:45 Albumin/Globulin Ratio 1.0 (1.0-1.8) 04/28/16 07:45 Amylase 41 U/L (29-103) 04/28/16 07:45 Lipase 30 U/L (11-82) 04/28/16 07:45 Vitamin D 25-Hydroxy 23.5 ng/mL (30.0-100.0) L 04/27/16 09:45 Free T4 1.15 ng/dL (0.82-1.77) 04/27/16 09:45 PTH Interpretation (()) 04/27/16 09:45 PTH Intact <6 pg/mL (15-65) L 04/27/16 09:45 Calcium (PTH Intact) 11.0 mg/dL (8.7-10.2) H 04/27/16 09:45 Urine Source [place] 04/27/16 17:34 Urine Color YELLOW 04/27/16 17:34 Urine Clarity SLIGHT HAZY (CLEAR) 04/27/16 17:34 Urine pH 7.0 04/27/16 17:34 Ur Specific [place] 1.015 (1.005-1.030) 04/27/16 17:34 Urine Protein NEGATIVE mg/dL (NEGATIVE) 04/27/16 17:34 Urine Glucose (UA) NEGATIVE mg/dL (NEGATIVE) 04/27/16 17:34 Urine Ketones NEGATIVE mg/dL (NEGATIVE) 04/27/16 17:34 Urine Blood SMALL (NEGATIVE) H 04/27/16 17:34 Urine Nitrate NEGATIVE (NEGATIVE) 04/27/16 17:34 Urine Bilirubin NEGATIVE (NEGATIVE) 04/27/16 17:34 Urine Urobilinogen 0.2 E.U./dL (0.2 - 1.0) 04/27/16 17:34 Ur Leukocyte Esterase SMALL (NEGATIVE) H 04/27/16 17:34 Urine RBC 5-10 /hpf (0-5) H 04/27/16 17:34 Urine WBC 2-5 /hpf (0-5) 04/27/16 17:34 Ur Epithelial Cells FEW /lpf (FEW) 04/27/16 17:34 Amorphous Sediment FEW URATES (NONE SEEN) 04/27/16 17:34 Urine Bacteria FEW /hpf (NONE SEEN) 04/27/16 17:34 Urine Yeast FEW /hpf (NONE SEEN) H 04/01/16 11:10 Vancomycin Trough 9.9 ug/mL (10-20) L 04/20/16 09:00 - Physical Exam Vitals and I&O: Vital Signs Temp 98.1 F 04/28/16 11:06 Pulse 85 04/28/16 13:52 Resp 20 04/28/16 13:52 BP 116/68 04/28/16 11:06 Pulse Ox 95 04/28/16 13:52 Intake & Output 04/27/16 04/28/16 04/28/16 18:59 06:59 18:59 Intake Total 900 780 Output Total 900 750 Balance 0 30 Intake: Tube Feeding 900 TPN/PPN 660 Other 120 Output: Urine 900 750 Active Medications: Current Medications Acetaminophen (Tylenol 650mg/20.3ml Suspension) 640 mg GT Q4H PRN PRN Reason: Pain (Mild) Stop: 05/31/16 04:26 Last Admin: 04/19/16 04:09 Dose: 640 mg Acetaminophen (Tylenol 650mg/20.3ml Suspension) 640 mg GT Q4H PRN PRN Reason: Fever > 101 Stop: 05/31/16 04:26 Last Admin: 04/05/16 17:25 Dose: 640 mg Acetaminophen/Hydrocodone Bitart (Center 10 Mg/325 Mg) 1 tab PO Q6H PRN PRN Reason: Pain (Moderate-Severe) Stop: 06/19/16 14:59 Last Admin: 04/28/16 08:53 Dose: 1 tab Albuterol/Ipratropium (Duoneb Neb) 3 ml HHN Q6HRT MARIBELL Stop: 05/31/16 06:59 Last Admin: 04/28/16 13:49 Dose: 3 ml Albuterol/Ipratropium (Duoneb Neb) 3 ml HHN Q2H PRN PRN Reason: Wheezing Stop: 05/31/16 01:21 Last Admin: 04/08/16 02:51 Dose: 3 ml Aspirin (Aspirin) 325 mg GT DAILY [facility] Stop: 05/31/16 08:59 Last Admin: 04/28/16 08:52 Dose: 325 mg Atorvastatin Calcium (Lipitor) 5 mg GT HS MARIBELL PRN Reason: Protocol Stop: 05/31/16 20:59 Last Admin: 04/27/16 20:23 Dose: 5 mg Bisacodyl (Dulcolax 10 Mg Supp) 10 mg RC DAILY PRN PRN Reason: Constipation Stop: 06/18/16 04:26 Last Admin: 04/19/16 16:52 Dose: 10 mg Budesonide (Pulmicort) 0.5 mg HHN BIDRT [facility] Stop: 06/01/16 06:59 Last Admin: 04/28/16 07:56 Dose: 0.5 mg Chlorhexidine Gluconate (Peridex) 15 ml MM 0800,1999 [facility] Stop: 05/31/16 07:59 Last Admin: 04/27/16 20:24 Dose: 15 ml Clonidine HCl (Catapres) 0.3 mg GT Q6H PRN PRN Reason: sbp above 160 or dbp above 110 Diphenhydramine HCl (Benadryl) 25 mg GT Q6H PRN PRN Reason: Itching Stop: 05/31/16 04:26 Last Admin: 04/25/16 12:31 Dose: 25 mg Diphenhydramine HCl (Benadryl 50 Mg/Ml) 50 mg IVP Q6HR PRN PRN Reason: Anxiety Stop: 06/05/16 11:37 Last Admin: 04/28/16 13:24 Dose: 50 mg Docusate Sodium (Colace) 200 mg PO BID [facility] Stop: 06/18/16 16:59 Last Admin: 04/28/16 08:52 Dose: 200 mg Ferrous Sulfate (Iron) 330 mg GT DAILY [facility] Stop: 05/31/16 08:59 Last Admin: 04/28/16 09:30 Dose: 330 mg Folic Acid (Folate) 1 mg PO DAILY [facility] Stop: 06/05/16 08:59 Last Admin: 04/28/16 08:53 Dose: 1 mg Heparin Sodium (Porcine) (Heparin) 5,000 units SUBQ Q12HR [facility] Stop: 06/26/16 20:59 Last Admin: 04/28/16 09:30 Dose: 5,000 units Hydroxyzine Pamoate (Vistaril) 25 mg GT Q6HR PRN; Protocol PRN Reason: Anxiety Stop: 06/09/16 11:59 Last Admin: 04/27/16 15:16 Dose: 25 mg Sodium Chloride (Nacl 0.9%) 1,000 mls @ 0 mls/hr IV .Q0M MARIBELL PRN Reason: KVO Stop: 06/04/16 18:59 Ipratropium [place] (Atrovent Neb 0.5mg/2.5ml) 0.5 mg HHN Q4HRT MARIBELL Stop: 05/31/16 22:59 Last Admin: 04/28/16 07:59 Dose: 0.5 mg Lactobacillus Rhamnosus (Culturelle) 1 each PO DAILY MARIBELL Stop: 06/02/16 08:59 Last Admin: 04/28/16 08:52 Dose: 1 each Lamotrigine (Lamictal) 25 mg GT HS MARIBELL PRN Reason: Protocol Stop: 05/31/16 20:59 Last Admin: 04/27/16 20:23 Dose: 25 mg Magnesium Hydroxide (Milk Of Magnesia) 30 ml GT HS PRN PRN Reason: Constipation Stop: 05/31/16 04:26 Magnesium Oxide (Mag-Oxide) 400 mg GT DAILY [facility] Stop: 05/31/16 12:29 Last Admin: 04/28/16 08:53 Dose: 400 mg Miscellaneous (Probiotic Screen) 1 ea MC PRN PRN PRN Reason: PROTOCOL Stop: 06/01/16 14:37 Ondansetron HCl (Zofran Odt) 4 mg SL Q6H PRN PRN Reason: Nausea / Vomiting Potassium Chloride (Potassium Chloride Elixir) 20 meq GT DAILY [facility] Stop: 05/31/16 12:29 Last Admin: 04/28/16 08:51 Dose: 20 meq Propranolol HCl (Inderal) 20 mg GT BID [facility] Stop: 05/31/16 08:59 Last Admin: 04/28/16 08:52 Dose: 20 mg Risperidone (Risperdal) 1 mg PO BID MARIBELL PRN Reason: Protocol Stop: 06/17/16 16:59 Last Admin: 04/28/16 08:53 Dose: 1 mg Sevelamer HCl (Renagel) 800 mg PO TIDWM [facility] Stop: 06/27/16 07:59 Sodium Phosphate (Fleet Enema) 135 ml RC DAILY PRN PRN Reason: Constipation Stop: 06/18/16 15:26 Thiamine HCl (Vitamin B1) 100 mg PO DAILY MARIBELL Stop: 06/05/16 08:59 Last Admin: 04/28/16 08:52 Dose: 100 mg - Procedures Procedures: Procedures Procedure Code Date RESPIRATORY VENTILATION, GREATER THAN 96 CONSECUTIVE HOURS [id number] 03/31/16 VENT MGMT INPAT INIT DAY 03/31/16 VENT MGMT INPAT SUBQ DAY 03/31/16
--- NOTE | 2016-04-28 15:20 | Diagnostic Imaging Report ---
Bilateral lower extremity Doppler arterial ultrasound exam HISTORY: Peripheral vascular disease, pain Sonographic sector images were obtained through the arterial systems of both legs. Associated Doppler data was obtained. The exam of the right leg demonstrates triphasic waveforms within the common femoral artery. Abnormal monophasic waveforms are seen within the superficial femoral, anterior tibial, posterior tibial, and dorsalis pedis arteries. Triphasic waveforms are seen within the popliteal artery region. Slight increase in velocity noted within the mid and distal portion of the superficial femoral artery and within the posterior tibial artery and dorsalis pedis artery regions. Sonographic images do not demonstrate any significant focal atherosclerotic plaque. The ankle-brachial index is normal (0.97). The exam of the left leg demonstrates triphasic waveforms within the common femoral artery. Abnormal monophasic waveforms are noted through the remainder of the arterial system. Elevated velocities noted in the mid and distal portion of the superficial femoral artery. Sonographic images demonstrate mild diffuse atherosclerotic changes. The ankle-brachial index is within normal limits (1.2). IMPRESSION: 1. Sonographic and Doppler data consistent with [id number] diffuse bilateral atherosclerotic changes. No significant focal stenosis is identified.
[2016-04-28] MEDS ORDERED: PAMIDRONATE IV ONE (18:58)
[2016-04-28] MEDS: Atorvastatin Calcium 10 MG TAB GT SCH (20:27)
--- NOTE | 2016-04-28 22:08 | Progress Notes ---
Case was discussed with staff of the patient, reviewed records. The patient is doing the same. She is sleeping well, eating well, no longer pulling her tubes, no longer acting out. She denies any current intent to harm herself or anybody. She denies any auditory or visual hallucination or paranoia. She is sleeping well, eating well. No side effects with the medication, no sedation, no nausea, no extrapyramidal symptoms. Thank you very much for allowing me to participate in the care of this most interesting lady. The patient needs followup with her psychiatrist upon discharge, waiting on placement for this patient according to the staff. Also, they are trying to get her a valve, so she could be able to speak. JOB# [id number]
--- NOTE | 2016-04-28 22:30 | Progress Notes ---
PULMONARY PROGRESS NOTE: PROBLEM LIST: 1. Chronic respiratory failure with trach. 2. Pulmonary fibrosis. 3. Drug abuse in the past with left hemiplegia. SYMPTOMS: Nil. Feeling okay. No specific new symptoms. PHYSICAL EXAMINATION: VITAL SIGNS: Temperature is 98.2, blood pressure 139/79. NECK: Trach site appears to be okay. CHEST: Shows occasional rales with diminished air entry. HEART: Regular. ABDOMEN: Soft, nontender, with G-tube. LABORATORY DATA: White count is 10.5. Electrolytes are okay. ASSESSMENT: The patient is clinically overall doing better, improving. PLANS AND SUGGESTIONS: We will go ahead and continue current treatment. We will follow through trach availability for fenestrated cuffless and go from there. JOB# [id number]
[2016-04-29] MEDS: Albuterol/Ipratropium Neb 3 ML AERS HHN SCH ×5 (01:19→19:15)
[2016-04-29] MEDS: Ipratropium Neb 0.5 mg/2.5 mL UD HHN SCH ×3 (03:06→22:49)
[2016-04-29] MEDS: Hydrocodone/APAP 10 mg/325 mg Tab PO PRN (05:31)
[2016-04-29 05:48] LABS: PROTEIN RANDOM URINE 24.2 mg/dL; TOTAL PROTEIN 24 HR URINE 193.6 mg/24 hr (0-165)
[2016-04-29 05:51] LABS: SURFACE AREA 1.82
[2016-04-29] MEDS: Budesonide 0.5 Mg/2 mL Ud HHN SCH ×2 (07:49→19:17)
[2016-04-29] MEDS ORDERED: PAMIDRONATE IV ONE ×2 (08:15→09:00)
[2016-04-29] MEDS ORDERED: SODIUM CHLORIDE 0.9% IV ONE (08:15)
[2016-04-29] MEDS: Multivitamin w/ Minerals Tab GT SCH (09:00)
[2016-04-29] MEDS: Lactobacillus Rhamnosus 10 Billion CFU Capsule PO SCH (09:01)
[2016-04-29] MEDS: Ferrous Sulfate 300 MG/5 ML UDC GT SCH (09:01)
[2016-04-29] MEDS: Potassium Chloride Elixir 20 mEq /15 mL UDC GT SCH (09:01)
[2016-04-29] MEDS: Chlorhexidine Gluconate 0.12% 15mL Mouthwash MM SCH (09:17)
[2016-04-29 11:56] LABS: ALKALINE PHOSPHATASE 68 U/L (34-104); ANION GAP 11.3 (7.0-16.0); BILIRUBIN,TOTAL 0.3 mg/dL (0.3-1.0); BUN - UREA NITROGEN 24 mg/dL (7-25); CALCIUM SERUM 12.1 mg/dL (8.6-10.3); CARBON DIOXIDE 31.2 mEq/L (21.0-31.0); CHLORIDE 97 mEq/L (98-107); CREATININE - SERUM 0.8 mg/dL (0.6-1.2); GLUCOSE 114 mg/dL (70-105); POTASSIUM SERUM 4.5 mEq/L (3.5-5.1); SGOT 16 U/L (13-39); SGPT/ALT 11 U/L (7-52); SODIUM SERUM 135 mEq/L (136-145)
[2016-04-29 12:16] LABS: ALBUMIN 3.5 g/dL (2.9-4.4); ALPHA-1-GLOBULIN 0.3 g/dL (0.0-0.4); GAMMA GLOBULIN 1.2 g/dL (0.4-1.8); GLOBULIN, TOTAL 3.6 g/dL (2.2-3.9); M-SPIKE Not Observed g/dL (Not Observed); PROTEIN, TOTAL, SERUM 7.1 g/dL (6.0-8.5)
--- NOTE | 2016-04-29 14:26 | Diagnostic Imaging Report ---
Renal ultrasound HISTORY: Pain, renal calculi, hypercalcemia The right kidney is normal in size (11.4 x 6.3 x 5.9 cm). A 1.1 cm echogenic focus is noted in the mid cortex. This may be related to a calculus. No hydronephrosis. There is suboptimal visualization the left kidney due to body habitus and bowel gas. The kidney measures approximate 12.0 x 6.1 x 5.3 cm. No definite focal lesions or hydronephrosis. The urinary bladder could not be evaluated due to lack of distention. IMPRESSION: 1. 1.1 cm echogenic focus in the mid cortex of the right kidney that may be related to a calculus. No hydronephrosis 2. Limited visualization left kidney with no definite abnormalities
[2016-04-29] MEDS: Atorvastatin Calcium 10 MG TAB PO SCH (20:31)
--- NOTE | 2016-04-29 22:48 | Progress Notes ---
Case was discussed with staff of the patient, reviewed records. The patient continues to do the same. Staff reports she is no longer pulling her tubes. She has been compliant with the medication with no side effects, awaiting placement, also valve for the tracheostomy tube, so she can talk. She denies any current intent to harm herself or anybody. She denies any auditory or visual hallucination or paranoia. No side effects with the medication. The patient is in the process of trying to send her to a different facility for long-term care. The patient needs followup with the psychiatrist upon discharge. Thank you very much for allowing me to participate in the care of this most interesting lady. JOB# [id number]
[2016-04-30] MEDS: Albuterol/Ipratropium Neb 3 ML AERS HHN SCH ×4 (00:47→19:09)
--- NOTE | 2016-04-30 02:38 | Progress Notes ---
SUBJECTIVE: The patient is on oxygen via trach site. The patient is receiving inpatient neb treatment. The patient is receiving inpatient rehab therapy. The patient is on IV fluids. OBJECTIVE: VITAL SIGNS: Seen. CARDIOVASCULAR: S1 and S2. RESPIRATORY: Rales. GASTROINTESTINAL: Soft. Positive bowel sounds. LABORATORY DATA: Seen. ASSESSMENT: 1. Sepsis (resolved). 2. Pneumonia secondary to methicillin-resistant Staphylococcus aures (treated). 2. Urinary tract infection secondary to yeast (treated). 3. Respiratory failure (acute). 4. Status post trach. 5. Cerebrovascular accident. 6. History of alcohol abuse. 7. History of methamphetamine abuse. 8. History of suicidal ideation. 9. Debility. 10. Generalized weakness. 11. Anxiety disorder, bipolar disorder. PLAN: Continue current medication and treatment. Obtain labs in a.m. Continue inpatient rehab therapy. Continue inpatient neb treatment. Continue weaning from oxygenation. Further per consultation. territory outside sales manager will arrange for transfer to subacute facility. JOB# [id number] AMY
[2016-04-30] MEDS: Ipratropium Neb 0.5 mg/2.5 mL UD HHN SCH ×3 (03:09→14:46)
[2016-04-30] MEDS: Chlorhexidine Gluconate 0.12% 15mL Mouthwash MM SCH ×2 (04:46→08:44)
[2016-04-30] MEDS: Budesonide 0.5 Mg/2 mL Ud HHN SCH ×2 (06:50→19:10)
[2016-04-30 07:27] LABS: % BASOPHILS 0.4 % (0.0-2.0); % LYMPHOCYTES 34.5 % (20.0-50.0); RED BLOOD COUNT 3.39 Mil/cmm (3.80-5.10); RED CELL DISTRIBUTION WIDTH 15.3 % (11.5-20.0)
[2016-04-30 07:44] LABS: HEMATOCRIT 29.6 % (35.0-45.0); MEAN CELL VOLUME 87.1 fl (81-100); WHITE BLOOD COUNT 11.5 Th/cmm (4.8-10.8)
[2016-04-30 07:45] LABS: % EOSINOPHILS 2.6 % (0.0-5.0); % NEUTROPHILS 50.5 % (40.0-80.0); ALKALINE PHOSPHATASE 59 U/L (34-104); ANION GAP 11.2 (7.0-16.0); BILIRUBIN,TOTAL 0.4 mg/dL (0.3-1.0); BUN - UREA NITROGEN 23 mg/dL (7-25); BUN/CREATININE RATIO 28.8; CALCIUM SERUM 11.7 mg/dL (8.6-10.3); CARBON DIOXIDE 29.8 mEq/L (21.0-31.0); CHLORIDE 98 mEq/L (98-107); CREATININE - SERUM 0.8 mg/dL (0.6-1.2); GLUCOSE 106 mg/dL (70-105); MAGNESIUM 1.9 mg/dL (1.9-2.7); MEAN CORPUSCULAR HEMOGLOBIN 29.5 pg (27.0-31.0); MEAN CORPUSCULAR HGB CONC 33.9 pg (28.0-36.0); MEAN PLATELET VOLUME 8.3 fl; NEUTROPHILE ABSOLUTE 5.8 Th/cmm (1.8-8.0); PLATELET COUNT 356 Th/cmm (150-400); SGOT 14 U/L (13-39); SGPT/ALT 9 U/L (7-52); SODIUM SERUM 135 mEq/L (136-145)
[2016-04-30] MEDS: Potassium Chloride Elixir 20 mEq /15 mL UDC GT SCH (08:18)
[2016-04-30] MEDS: Lactobacillus Rhamnosus 10 Billion CFU Capsule PO SCH (08:18)
[2016-04-30] MEDS: Multivitamin w/ Minerals Tab GT SCH (08:19)
[2016-04-30] MEDS: Ferrous Sulfate 300 MG/5 ML UDC PO SCH (08:20)
[2016-04-30] MEDS: Hydrocodone/APAP 10 mg/325 mg Tab PO PRN ×2 (08:35→15:11)
--- NOTE | 2016-04-30 09:52 | Progress Notes ---
SUBJECTIVE: The patient is awake and alert. The patient is on IV fluids. The patient received inpatient neb treatment. The patient received inpatient rehab therapy. Per nursing staff, the patient has passed swallow evaluation. OBJECTIVE: VITAL SIGNS: Temperature 98, pulse is 74, blood pressure per nursing, respiratory rate 20 and O2 saturation is 98% on oxygen via trach site. CARDIOVASCULAR: S1 and S2. RESPIRATORY: Rales.. GASTROINTESTINAL: Soft. Positive bowel sounds. LABORATORY DATA: Chemistry: Sodium 135, potassium per labs, chloride 97, bicarbonate 31, anion gap 11, BUN 24, creatinine 0.8. GFR more than 60. Glucose is 114. Calcium 12.1. Total bili is 0.3. AST 16, ALT 11, alkaline phosphates 68, troponin 7.9, albumin 3.9, globulin 4.0. MICROBIOLOGY: Sputum culture from April 01 shows MRSA. MRSA screen April 01 negative. Urine culture from April 01 shows yeast. Blood culture from April 05 negative. Urine culture from April 17 negative. UROLOGIC TEST: Renal ultrasound from April 29 shows positive calculus right kidney. Lower extremity ultrasound from April 28, [id number] diffuse changes. ASSESSMENT: 1. Right kidney nephrolithiasis. 2. Peripheral vascular disease. 3. Respiratory failure (acute). 4. Status post trach. 5. Sepsis (resolved). 6. Pneumonia secondary to MRSA (treated). 7. UTI secondary to yeast (treated). 8. Cerebrovascular accident. 9. History of drug abuse. 10. History of methamphetamine abuse. 11. Suicidal ideation. 12. Debility. 13. Generalized weakness. 14. Bipolar disorder. PLAN: Continue current medication and treatment.. Obtain labs in a.m. Continue inpatient rehab therapy. Continue inpatient neb treatment. Continue weaning from oxygenation.. Further recommendations per consults. manager advertising will arrange for transfer to subacute facility. We will start the patient on p.o. diet. JOB# [id number] [facility]
[2016-04-30 14:13] LABS: CA (PTHI) 11.5 mg/dL (8.7-10.2); PARATHYROID HORMONE INTACT <6 pg/mL (15-65)
[2016-04-30 15:13] LABS: URIC ACID 24HR URINE 207.2 mg/24 hr (250.0-750.0); URIC ACID URINE 25.9 mg/dL (Not Estab.)
[2016-04-30] MEDS: Atorvastatin Calcium 10 MG TAB PO SCH (22:00)
--- NOTE | 2016-04-30 22:09 | Progress Notes ---
SUBJECTIVE: The patient is asleep. The patient is on oxygen via trach site. The patient is tolerating p.o. intake. The patient is receiving inpatient rehab therapy. The patient has 1:1 sitter. OBJECTIVE: VITAL SIGNS: Temperature is 97.8, pulse 71, blood pressure 145/92, respiratory rate 18, O2 saturation 100% on FiO2 via trach site. CARDIOVASCULAR: S1 and S2. RESPIRATORY: Few rales. GASTROINTESTINAL: Soft. Positive bowel sounds. LABORATORY DATA: Hematology: WBC 11.5, hemoglobin 10.0, hemoglobin 29.6, platelet count 356, 12% monocytes. Chemistry: Sodium 135, potassium 4.0, chloride per labs, bicarbonate 29, anion gap 11, BUN 23, creatinine 0.8. GFR is more than 60. Glucose is 106. Calcium is 11.7, phosphorous 5.0, magnesium per labs. Total bilirubin 0.4, AST 14, ALT is 9, alkaline phosphatase 59. Total protein 7.2, albumin 3.5, globulin 3.7. MICROBIOLOGY: Sputum culture from 04/01/2016 shows MRSA. MRSA screening from 04/01/2016 is negative. Urine culture from 04/01/2016 shows yeast. Blood culture from 04/05/2016 is negative. Blood culture from 04/17/2016 is negative. MRSA screen from 04/28/2016 is negative. RADIOLOGIC TESTS: Renal ultrasound from 04/29/2016 shows 1 cm focus in mid cortex of right kidney, may be related to a calculus. No hydronephrosis. ASSESSMENT: 1. Right kidney nephrolithiasis. 2. Peripheral vascular disease. 3. Respiratory failure (acute). 4. Status post tracheostomy. 5. Sepsis (resolved). 6. Pneumonia secondary to methicillin-resistant Staphylococcus aureus (treated). 7. Urinary tract infection secondary to yeast (treated). 8. Cerebrovascular accident. 9. History of drug abuse. 10. History of methamphetamine abuse. 11. Suicidal ideation. 12. Debility. 13. Generalized weakness. 14. Bipolar disorder. 15. Leukocytosis. 16. Anemia. 17. Hypernatremia. 18. Hyperglycemia. 19. Hypercalcemia. 20. Hypoalbuminemia. PLAN: Continue current medication and treatment. Obtain labs in a.m. Continue inpatient rehab therapy. Continue inpatient neb treatment. Continue weaning from oxygenation. Further consults. employee development manager will arrange for transfer to subacute facility. PSYCHIATRIC# [id number] AMY
[2016-05-01] MEDS: Albuterol/Ipratropium Neb 3 ML AERS HHN SCH ×4 (01:28→19:43)
[2016-05-01] MEDS: Hydrocodone/APAP 10 mg/325 mg Tab PO PRN ×2 (01:30→09:34)
[2016-05-01] MEDS: Budesonide 0.5 Mg/2 mL Ud HHN SCH ×2 (06:40→19:43)
--- NOTE | 2016-05-01 09:09 | Progress Notes ---
PULMONARY PROGRESS NOTE PROBLEM LIST: 1. Chronic respiratory failure. 2. 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 There is chronic pulmonary interstitial disease, probably from previous pneumonia and/or possibly drugs. SYMPTOMS: Nil. The patient as per nursing staff is able to eat a little bit, but the specialized trach order is not available to me at this particular time. PHYSICAL EXAMINATION: VITAL SIGNS: Temperature is 98.8, blood pressure 140/80, saturation 100% on trach collar. ENT: Shows no new changes. CHEST: Shows occasional rales with diminished air entry. HEART: Regular. EXTREMITIES: Show no peripheral edema. ASSESSMENT: The patient clinically appears to be stable. PLANS AND SUGGESTIONS: Await for specialized trach with changes. She can plug it and hopefully, she would not have too much of a problem and down the line possibly decannulate and go from there. JOB# [id number]
[2016-05-01] MEDS: Ferrous Sulfate 300 MG/5 ML UDC PO SCH (09:33)
[2016-05-01] MEDS: Lactobacillus Rhamnosus 10 Billion CFU Capsule PO SCH (09:34)
[2016-05-01] MEDS: Multivitamin w/ Minerals Tab GT SCH (09:34)
[2016-05-01] MEDS: Potassium Chloride Elixir 20 mEq /15 mL UDC GT SCH (09:35)
[2016-05-01] MEDS: Chlorhexidine Gluconate 0.12% 15mL Mouthwash MM SCH ×2 (10:28→22:00)
[2016-05-01] MEDS: Ipratropium Neb 0.5 mg/2.5 mL UD HHN SCH ×3 (11:01→19:43)
[2016-05-01 12:34] LABS: % BASOPHILS 0.9 % (0.0-2.0); % EOSINOPHILS 2.5 % (0.0-5.0); % LYMPHOCYTES 38.9 % (20.0-50.0); % NEUTROPHILS 44.7 % (40.0-80.0); HEMOGLOBIN 9.8 gm/dL (11.7-15.5); MEAN CELL VOLUME 86.7 fl (81-100); MEAN CORPUSCULAR HEMOGLOBIN 29.1 pg (27.0-31.0); MEAN CORPUSCULAR HGB CONC 33.6 pg (28.0-36.0); MEAN PLATELET VOLUME 7.7 fl; NEUTROPHILE ABSOLUTE 4.5 Th/cmm (1.8-8.0); PLATELET COUNT 342 Th/cmm (150-400); RED BLOOD COUNT 3.35 Mil/cmm (3.80-5.10); RED CELL DISTRIBUTION WIDTH 14.9 % (11.5-20.0)
[2016-05-01 12:57] LABS: ALKALINE PHOSPHATASE 60 U/L (34-104); BILIRUBIN,TOTAL 0.4 mg/dL (0.3-1.0); BUN - UREA NITROGEN 20 mg/dL (7-25); BUN/CREATININE RATIO 22.2; CALCIUM SERUM 11.2 mg/dL (8.6-10.3); CARBON DIOXIDE 30.5 mEq/L (21.0-31.0); CHLORIDE 96 mEq/L (98-107); CREATININE - SERUM 0.9 mg/dL (0.6-1.2); GLUCOSE 97 mg/dL (70-105); POTASSIUM SERUM 4.5 mEq/L (3.5-5.1); SGOT 17 U/L (13-39); SGPT/ALT 11 U/L (7-52); SODIUM SERUM 131 mEq/L (136-145)
[2016-05-01] MEDS: Magnesium Hydroxide (MOM) 30 mL UDC PO PRN ×2 (14:04→21:08)
[2016-05-01] MEDS: Atorvastatin Calcium 10 MG TAB PO SCH (21:09)
--- NOTE | 2016-05-01 22:17 | Progress Notes ---
PULMONARY PROGRESS NOTE PROBLEM LIST: 1. Chronic respiratory failure. 2. Bilateral interstitial pneumonia. 3. Tracheostomy. 4. Left-sided hemiparesis. 5. History of drug dependency prior to coming to the hospital. SYMPTOMS: Nil. Feeling okay. No specific new symptoms. PHYSICAL EXAMINATION: GENERAL: Not in any acute distress. VITAL SIGNS: Trach mask 40%, afebrile, heart rate is in 70s, respirations 18, saturation 100%. ENT: Shows no new changes. NECK: Trach site appears to be okay. CHEST: Shows occasional rales with diminished air entry. HEART: Regular. EXTREMITIES: Show no peripheral edema. ASSESSMENT: The patient clinically appears to be reasonably stable. PLANS AND SUGGESTIONS: We will go ahead and continue current treatment. We will follow through changing trach when it is available and go from there. JOB# [id number]
--- NOTE | 2016-05-02 01:04 | Progress Notes ---
SUBJECTIVE: The patient is awake and alert. The patient is on oxygen via trach site. The patient is receiving inpatient rehabilitation therapy. The patient has 1:1 sitter. OBJECTIVE: VITAL SIGNS: Temperature 97, pulse of 73, respiratory rate 18, blood pressure 109/72, O2 saturation 98% via oxygen via trach site. CARDIOVASCULAR: S1 and S2. RESPIRATORY: Few rales. GASTROINTESTINAL: Soft. Positive bowel sounds. LABORATORY DATA: Hematology: WBC per labs, hemoglobin 10.0, hematocrit 28.6, platelet count of 356, 12% monocytes. Chemistry: Sodium 135, potassium 4.0, chloride 98, bicarbonate 29, anion gap 11, BUN 23, creatinine 0.8, GFR is more than 60, glucose is 106, calcium per labs, phosphorous 5.0, magnesium is 1.9, total bilirubin is 0.4, AST is 14, ALT is 9, alkaline phosphatase is 59, total protein is 7.2, albumin 3.5, globulin 3.7. RADIOLOGY: No new radiology results. ASSESSMENT: 1. Leukocytosis. 2. Anemia. 3. Hyponatremia. 6. Hypoalbuminemia. 7. Right kidney nephrolithiasis. 8. Peripheral vascular disease. 9. Respiratory failure (acute), status post tracheostomy. 10. Sepsis (resolved). 11. Pneumonia secondary to methicillin-resistant Staphylococcus aureus (treated). 12. Urinary tract infection secondary to yeast (treated). 13. Cerebrovascular accident. 15. Suicidal ideation. 16. Debility. 17. Generalized weakness. 18. Bipolar disorder. PLAN: Continue current medication and treatment. Obtain labs in a.m. Continue inpatient rehab therapy. Continue IV fluids. Continue weaning from oxygenation. Further labs and consults. physical plant manager will arrange for transfer to subacute facility. JOB# [id number] MTDD
[2016-05-02] MEDS: Albuterol/Ipratropium Neb 3 ML AERS HHN SCH ×4 (01:55→19:28)
[2016-05-02] MEDS: Budesonide 0.5 Mg/2 mL Ud HHN SCH ×2 (07:03→19:40)
[2016-05-02] MEDS: Lactobacillus Rhamnosus 10 Billion CFU Capsule PO SCH (08:44)
[2016-05-02] MEDS: Multivitamin w/ Minerals Tab GT SCH (08:44)
[2016-05-02] MEDS: Ferrous Sulfate 300 MG/5 ML UDC PO SCH (08:44)
[2016-05-02] MEDS: Chlorhexidine Gluconate 0.12% 15mL Mouthwash MM SCH (08:46)
[2016-05-02] MEDS: Hydrocodone/APAP 10 mg/325 mg Tab PO PRN (08:51)
[2016-05-02] MEDS: Ipratropium Neb 0.5 mg/2.5 mL UD HHN SCH ×3 (10:47→23:31)
[2016-05-02 11:03] LABS: % BASOPHILS 0.9 % (0.0-2.0); % EOSINOPHILS 1.8 % (0.0-5.0); % LYMPHOCYTES 38.3 % (20.0-50.0); % MONOCYTES 11.8 % (2.0-10.0); % NEUTROPHILS 47.2 % (40.0-80.0); HEMATOCRIT 31.6 % (35.0-45.0); HEMOGLOBIN 10.7 gm/dL (11.7-15.5); MEAN CORPUSCULAR HGB CONC 33.7 pg (28.0-36.0); MEAN PLATELET VOLUME 8.1 fl; PLATELET COUNT 350 Th/cmm (150-400); RED BLOOD COUNT 3.67 Mil/cmm (3.80-5.10); RED CELL DISTRIBUTION WIDTH 14.4 % (11.5-20.0); WHITE BLOOD COUNT 10.7 Th/cmm (5.0-20)
[2016-05-02 11:19] LABS: ALKALINE PHOSPHATASE 62 U/L (34-104); ANION GAP 12.3 (7.0-16.0); BILIRUBIN,TOTAL 0.4 mg/dL (0.3-1.0); BUN - UREA NITROGEN 18 mg/dL (7-25); BUN/CREATININE RATIO 22.5; CALCIUM SERUM 10.7 mg/dL (8.6-10.3); CHLORIDE 94 mEq/L (98-107); CREATININE - SERUM 0.8 mg/dL (0.6-1.2); GLUCOSE 99 mg/dL (70-105); POTASSIUM SERUM 4.3 mEq/L (3.5-5.1); SGOT 18 U/L (13-39); SGPT/ALT 11 U/L (7-52); SODIUM SERUM 130 mEq/L (136-145)
[2016-05-02] MEDS: Atorvastatin Calcium 10 MG TAB PO SCH (22:17)
--- NOTE | 2016-05-02 22:18 | Progress Notes ---
Case discussed with staff of the patient, reviewed records. The patient cannot talk because she does have ____ her tracheostomy back. The patient herself denies any current intent to harm herself or anybody. Denies any hallucination or paranoia, no side effects. She is in the process of going to a nursing facility; however, she is not medically cleared yet. No side effects with the medication, no sedation, no nausea, no extrapyramidal symptoms, Risperdal 1 mg twice a day as well as Lamictal 25 mg at bedtime and the patient needs to follow up with the psychiatrist upon discharge. Thank you very much for allowing me to participate in the care of this most interesting lady. JOB# [id number]
[2016-05-03] MEDS: Albuterol/Ipratropium Neb 3 ML AERS HHN SCH ×3 (01:18→19:25)
[2016-05-03] MEDS: Chlorhexidine Gluconate 0.12% 15mL Mouthwash MM SCH ×2 (03:00→10:14)
[2016-05-03] MEDS: Ipratropium Neb 0.5 mg/2.5 mL UD HHN SCH ×3 (03:07→16:38)
[2016-05-03] MEDS: Hydrocodone/APAP 10 mg/325 mg Tab PO PRN (04:42)
--- NOTE | 2016-05-03 06:20 | Progress Notes ---
PROBLEM LIST: 1. Chronic respiratory failure. 2. MRSA colonization. 3. Restrictive lung disease from previous pneumonia. 4. Left-sided CVA. SYMPTOMS: Nil, feeling okay. No specific new symptoms, wanted trach to be change. PHYSICAL EXAMINATION: VITAL SIGNS: The patient's temperature is 98.2. NECK: JVP not visualized, trach site appears to be okay. CHEST: Shows diminished air entry with occasional rhonchi. HEART: Regular. LABORATORY DATA: White count is 10,700 and electrolytes shows sodium of 130 and calcium is 10.7. ASSESSMENT: The patient's persistent hypercalcemia, exact etiology is not clear cut. PLANS AND SUGGESTIONS: We will continue current treatment follow through other studies as well as once the right trach is available, we will change it and go from there. JOB# [id number]
--- NOTE | 2016-05-03 07:17 | Progress Notes ---
SUBJECTIVE: The patient is on ventilator. The patient is on oxygen via trach site. The patient on IV fluids. The patient is receiving inpatient neb treatment. The patient is receiving inpatient rehab therapy. The patient has 1:1 sitter. OBJECTIVE: VITAL SIGNS: Temperature 99.2, pulse 95, blood pressure 95/55, respiratory rate 17, O2 sat 100% on oxygen via trach site. CARDIOVASCULAR: S1, S2. RESPIRATORY: Few rales. GASTROINTESTINAL: Soft. Positive bowel sounds LABORATORY DATA: Hematology: WBC 10.7, hemoglobin 10.7, platelet count of 250, 11% monocytes. Chemistry: Sodium 130, potassium 4.3, chloride 94, bicarbonate 28, anion gap 12, BUN 18, creatinine 0.8, GFR is 160, glucose 99, calcium 10.7. Total bilirubin is 0.4, AST 18, ALT 11, alkaline phosphatase 62, total protein 7.6, albumin 3.7, globulin 3.9. MICROBIOLOGY: Sputum culture from 04/01/2016 shows MRSA and MRSA screen 04/01/2016 negative. Urine culture from 04/01/2016 shows yeast. Blood culture from 04/05/2016 negative. Blood culture 04/17/2016 negative. MRSA screen from 04/28/2016, negative. ASSESSMENT: 1. Anemia. 2. Hyponatremia. 3. Hypercalcemia. 4. Sepsis, (resolved). 5. Pneumonia secondary to methicillin-resistant Staphylococcus aures (treated). 6. Urinary tract infection secondary to yeast (treated). 7. Cerebrovascular accident. 8. Suicidal ideation. 9. Debility and generalized weakness. 10. Bipolar disorder. 11. Right kidney nephrolithiasis. 12. Peripheral vascular disease. 13. Respiratory failure (acute) 14. Status post trach. PLAN: Continue current medication and treatment. Obtain labs in a.m. Continue patient's rehab therapy. Continue IV fluids. Continue weaning from oxygenation. Further recommendations from consults. international trade manager will arrange for transfer to some acute facility. JOB# [id number] MTDArabella
[2016-05-03] MEDS: Budesonide 0.5 Mg/2 mL Ud HHN SCH (09:08)
[2016-05-03] MEDS: Ferrous Sulfate 300 MG/5 ML UDC PO SCH (10:15)
[2016-05-03] MEDS: Lactobacillus Rhamnosus 10 Billion CFU Capsule PO SCH (10:16)
[2016-05-03] MEDS: Multivitamin w/ Minerals Tab GT SCH (10:17)
[2016-05-03 14:59] LABS: % EOSINOPHILS 2.7 % (0.0-5.0); % LYMPHOCYTES 37.8 % (20.0-50.0); % NEUTROPHILS 45.5 % (40.0-80.0); HEMATOCRIT 31.6 % (35.0-45.0); HEMOGLOBIN 10.6 gm/dL (11.7-15.5); MEAN CORPUSCULAR HEMOGLOBIN 29.2 pg (27.0-31.0); MEAN CORPUSCULAR HGB CONC 33.5 pg (28.0-36.0); MEAN PLATELET VOLUME 8.9 fl; NEUTROPHILE ABSOLUTE 4.7 Th/cmm (1.8-8.0); PLATELET COUNT 359 Th/cmm (150-400); RED BLOOD COUNT 3.64 Mil/cmm (3.80-5.10); RED CELL DISTRIBUTION WIDTH 14.7 % (11.5-20.0); WHITE BLOOD COUNT 10.4 Th/cmm (4.8-10.8)
[2016-05-03 15:05] LABS: ANION GAP 11.6 (7.0-16.0); BUN - UREA NITROGEN 15 mg/dL (7-25); BUN/CREATININE RATIO 18.8; CALCIUM SERUM 10.2 mg/dL (8.6-10.3); CARBON DIOXIDE 29.1 mEq/L (21.0-31.0); CHLORIDE 96 mEq/L (98-107); CREATININE - SERUM 0.8 mg/dL (0.6-1.2); GLUCOSE 110 mg/dL (70-105); POTASSIUM SERUM 3.7 mEq/L (3.5-5.1); SODIUM SERUM 133 mEq/L (136-145)
--- NOTE | 2016-05-03 17:27 | Infectious Disease Prog Note ---
Infectious Disease Subjective - Review of Systems Subjective: cc mrsa pneummonia haven uti hpi- mrsa screen neg ros no fever o/e Physical Exam: General: No Acute Distress HEENT: EOMI Bilaterally, PERRLA Bilaterally, Head is normocephalic, atraumatic on inspection. Cardio: +S1/S2 Auscultated, RRR, no murmurs/rubs/gallops noted Respiratory: Clear to Auscultate Bilaterally trach Abdominal: Soft, Nondistended, Nontender to palpation x 4 quadrants Genital/Urinary: Extremities: No Edema noted in the lower extremities Neurological: Cranial Nerves II-XII intact bilaterally, Gait Steady,l Focal Deficits noted. Infectious Disease Objective - Results Result Diagrams: 05/03/16 14:10 05/03/16 14:10 Recent Labs: Laboratory Last Values WBC 10.4 Th/cmm (4.8-10.8) 05/03/16 14:10 RBC 3.64 Mil/cmm (3.80-5.10) L 05/03/16 14:10 Hgb 10.6 gm/dL (11.7-15.5) L 05/03/16 14:10 Hct 31.6 % (35.0-45.0) L 05/03/16 14:10 MCV 87.0 fl (81-100) 05/03/16 14:10 MCH 29.2 pg (27.0-31.0) 05/03/16 14:10 MCHC Differential 33.5 pg (28.0-36.0) 05/03/16 14:10 RDW 14.7 % (11.5-20.0) 05/03/16 14:10 Plt Count 359 Th/cmm (150-400) 05/03/16 14:10 MPV 8.9 fl 05/03/16 14:10 Neutrophils % 45.5 % (40.0-80.0) 05/03/16 14:10 Band Neutrophils % 1 % (0-10) 04/16/16 09:45 Lymphocytes % 37.8 % (20.0-50.0) 05/03/16 14:10 Monocytes % 13.0 % (2.0-10.0) H 05/03/16 14:10 Eosinophils % 2.7 % (0.0-5.0) 05/03/16 14:10 Basophils % 1.0 % (0.0-2.0) 05/03/16 14:10 Neutrophils (Manual) 45 % (40-80) 04/22/16 06:26 Lymphocytes 44 % (20-50) 04/22/16 06:26 Monocytes 11 % (2-10) H 04/22/16 06:26 Eosinophils 2 % (0-5) 04/21/16 06:30 Basophils 1 % (0-3) 04/05/16 07:40 Myelocytes 2 % 04/16/16 09:45 Atypical Lymphocytes 2 % 04/05/16 07:40 Platelet Estimate INCREASED PLATELETS (NORMAL) 04/22/16 06:26 Platelet Morphology NORMAL (NORMAL) 04/22/16: Anisocytosis 1+ 04/05/16 07:40 RBC Morph Micro Appear NORMAL (NORMAL) 04/22/16 06:26 ESR 91 mm/hr (0-30) H 04/22/16 06:26 PT 9.8 SECONDS (9.5-11.5) 04/10/16 17:26 INR 0.99 (0.5-1.4) 04/10/16 17:26 Specimen Source Arterial 04/07/16 09:00 Sample Site RB 04/07/16 09:00 pH 7.47 (7.35-7.45) H 04/07/16 09:00 pCO2 46.0 mmHg (35.0-45.0) H 04/07/16 09:00 pO2 78.0 mmHg (80.0-100.0) L 04/07/16 09:00 HCO3 33.5 mmol/L (20.0-26.0) H 04/07/16 09:00 Base Excess 8.7 mmol/L (-3.0-3.0) H 04/07/16 09:00 O2 Saturation 96.0 % (92.0-100.0) 04/07/16 09:00 Kenan Test NA 04/07/16 09:00 Vent Rate NA 04/07/16 09:00 Inspired O2 40 04/07/16 09:00 Tidal Volume NA 04/07/16 09:00 PEEP NA 04/07/16 09:00 Pressure (ins/psv/peep) NA 04/07/16 09:00 Critical Value E.GASTON 04/07/16 09:00 Sodium 133 mEq/L (136-145) L 05/03/16 14:10 Potassium 3.7 mEq/L (3.5-5.1) 05/03/16 14:10 Chloride 96 mEq/L (98-107) L 05/03/16 14:10 Carbon Dioxide 29.1 mEq/L (21.0-31.0) 05/03/16 14:10 Anion Gap 11.6 (7.0-16.0) 05/03/16 14:10 BUN 15 mg/dL (7-25) 05/03/16 14:10 Creatinine 0.8 mg/dL (0.6-1.2) 05/03/16 14:10 Est GFR ( Amer) > 60.0 ml/min (>90) 05/03/16 14:10 Est GFR (Non-Af Amer) > 60.0 ml/min 05/03/16 14:10 BUN/Creatinine Ratio 18.8 05/03/16 14:10 Glucose 110 mg/dL (70-105) H 05/03/16 14:10 Uric Acid 5.9 mg/dL (2.3-6.6) 04/27/16 09:45 Calcium 10.2 mg/dL (8.6-10.3) 05/03/16 14:10 Ionized Calcium 5.6 mg/dL (4.5-5.6) 04/27/16 09:45 Phosphorus 5.0 mg/dL (2.5-5.0) 04/30/16 06:23 Magnesium 1.9 mg/dL (1.9-2.7) 04/30/16 06:23 Total Bilirubin 0.4 mg/dL (0.3-1.0) 05/02/16 10:50 Direct Bilirubin 0.13 mg/dL (0.0-0.2) 04/02/16 04:33 AST 18 U/L (13-39) 05/02/16 10:50 ALT 11 U/L (7-52) 05/02/16 10:50 Alkaline Phosphatase 62 U/L (34-104) 05/02/16 10:50 Ammonia 32 umol/L (16-53) 04/05/16 07:40 C-Reactive Protein 0.8 mg/dL (0.0-0.9) 04/22/16 06:26 B-Natriuretic Peptide 65.9 pg/mL (5.0-100.0) 05/01/16 12:20 Total Protein 7.6 gm/dL (6.0-8.3) 05/02/16 10:50 Albumin 3.7 gm/dL (3.7-5.3) 05/02/16 10:50 Globulin 3.9 gm/dL 05/02/16 10:50 Albumin/Globulin Ratio 1.0 (1.0-1.8) 05/02/16 10:50 Eltld-0-Hmfhfwoly 0.3 g/dL (0.0-0.4) 04/28/16 07:45 Rzwej-3-Znvsroycy 1.1 g/dL (0.4-1.0) H 04/28/16 07:45 Beta Globulins 1.0 g/dL (0.7-1.3) 04/28/16 07:45 Gamma Globulins 1.2 g/dL (0.4-1.8) 04/28/16 07:45 M-Aneudy Not Observed g/dL (Not Observed) 04/28/16 07:45 PEP Note (()) 04/28/16 07:45 Amylase 41 U/L (29-103) 04/28/16 07:45 Lipase 30 U/L (11-82) 04/28/16 07:45 Tumor Marker AFP 2.4 ng/mL (0.0-8.3) 04/28/16 07:45 Vitamin D 25-Hydroxy 23.5 ng/mL (30.0-100.0) L 04/27/16 09:45 Free T4 1.15 ng/dL (0.82-1.77) 04/27/16 09:45 PTH Interpretation (()) 04/29/16 11:11 PTH Intact <6 pg/mL (15-65) L 04/29/16 11:11 Calcium (PTH Intact) 11.5 mg/dL (8.7-10.2) H 04/29/16 11:11 Urine Source [place] 04/27/16 17:34 Urine Color YELLOW 04/27/16 17:34 Urine Clarity SLIGHT HAZY (CLEAR) 04/27/16 17:34 Urine pH 7.0 04/27/16 17:34 Ur Specific [place] 1.015 (1.005-1.030) 04/27/16 17:34 Urine Protein NEGATIVE mg/dL (NEGATIVE) 04/27/16 17:34 Urine Glucose (UA) NEGATIVE mg/dL (NEGATIVE) 04/27/16 17:34 Urine Ketones NEGATIVE mg/dL (NEGATIVE) 04/27/16 17:34 Urine Blood SMALL (NEGATIVE) H 04/27/16 17:34 Urine Nitrate NEGATIVE (NEGATIVE) 04/27/16 17:34 Urine Bilirubin NEGATIVE (NEGATIVE) 04/27/16 17:34 Urine Urobilinogen 0.2 E.U./dL (0.2 - 1.0) 04/27/16 17:34 Ur Leukocyte Esterase SMALL (NEGATIVE) H 04/27/16 17:34 Urine RBC 5-10 /hpf (0-5) H 04/27/16 17:34 Urine WBC 2-5 /hpf (0-5) 03 17:34 Ur Epithelial Cells FEW /lpf (FEW) 04/27/16 17:34 Amorphous Sediment FEW URATES (NONE SEEN) 04/27/16 17:34 Urine Bacteria FEW /hpf (NONE SEEN) 04/27/16 17:34 Urine Yeast FEW /hpf (NONE SEEN) H 04/01/16 11:10 U Random Total Protein 24.2 mg/dL 04/28/16 23:05 Urine Collection Time 24 hours 04/28/16 23:05 Urine Total Volume 800 ml 04/28/16 23:05 Urine Creatinine 54.0 mg/dl (28.0-217.0) 04/28/16 23:05 Creat Clearance 24 Hr 41 ml/min (88.00-128.00) L 04/28/16 23:05 U Tot Protein 24h, Calc 193.6 mg/24 hr (0-165) H 04/28/16 23:05 Ur Uric Acid 25.9 mg/dL (Not Estab.) 04/28/16 23:05 Ur Uric Acid 24 Hr 207.2 mg/24 hr (250.0-750.0) L 04/28/16 23:05 Body Surface Area 1.82 04/28/16 23:05 Vancomycin Trough 9.9 ug/mL (10-20) L 04/20/16 09:00 RPR NONREACTIVE (NONREACTIVE) 04/29/16 11:11 - Physical Exam Vitals and I&O: Vital Signs Temp 98.2 F 05/03/16 12:00 Pulse 74 05/03/16 17:09 Resp 18 05/03/16 12:00 BP 114/73 05/03/16 17:09 Pulse Ox 99 05/03/16 12:00 Intake & Output 05/02/16 05/03/16 05/03/16 18:59 06:59 18:59 Intake Total 1080 Output Total 750 Balance 330 Intake: Oral 1080 Output: Urine 750 Other: # Bowel Movements 3 Active Medications: Current Medications Acetaminophen (Tylenol 650mg/20.3ml Suspension) 640 mg PO Q4H PRN PRN Reason: Pain (Mild) Stop: 05/31/16 04:26 Last Admin: 04/30/16 06:45 Dose: 640 mg Acetaminophen/Hydrocodone Bitart ([place] 10 Mg/325 Mg) 1 tab PO Q6H PRN PRN Reason: Pain (Moderate-Severe) Stop: 06/19/16 14:59 Last Admin: 05/03/16 04:42 Dose: 1 tab Albuterol/Ipratropium (Duoneb Neb) 3 ml HHN Q6HRT MARIBELL Stop: 05/31/16 06:59 Last Admin: 05/03/16 12:41 Dose: 3 ml Albuterol/Ipratropium (Duoneb Neb) 3 ml HHN Q2H PRN PRN Reason: Wheezing Stop: 05/31/16 01:21 Last Admin: 04/08/16 02:51 Dose: 3 ml Aspirin (Aspirin) 325 mg PO DAILY [facility] Stop: 06/28/16 17:55 Last Admin: 05/03/16 10:15 Dose: 325 mg Atorvastatin Calcium (Lipitor) 5 mg PO HS MARIBELL PRN Reason: Protocol Stop: 06/28/16 17:55 Last Admin: 05/02/16 22:17 Dose: 5 mg Bisacodyl (Dulcolax 10 Mg Supp) 10 mg RC DAILY PRN PRN Reason: Constipation Stop: 06/18/16 04:26 Last Admin: 04/19/16 16:52 Dose: 10 mg Chlorhexidine Gluconate (Peridex) 15 ml MM 0800,2000 [facility] Stop: 05/31/16 07:59 Last Admin: 05/03/16 10:14 Dose: 15 ml Clonidine HCl (Catapres) 0.3 mg PO Q6H PRN PRN Reason: sbp above 160 or dbp above 110 Diphenhydramine HCl (Benadryl 50 Mg/Ml) 50 mg IVP Q6HR PRN PRN Reason: Anxiety Stop: 06/05/16 11:37 Last Admin: 05/02/16 02:18 Dose: 50 mg Diphenhydramine HCl (Benadryl) 25 mg PO Q6H PRN PRN Reason: Itching Stop: 05/31/16 04:26 Last Admin: 05/03/16 17:09 Dose: 25 mg Docusate Sodium (Colace) 200 mg PO BID [facility] Stop: 06/18/16 16:59 Last Admin: 05/03/16 17:09 Dose: 200 mg Ferrous Sulfate (Iron) 330 mg PO DAILY [facility] Stop: 06/28/16 17:56 Last Admin: 05/03/16 10:15 Dose: 330 mg Folic Acid (Folate) 1 mg PO DAILY MARIBELL Stop: 06/05/16 08:59 Last Admin: 05/03/16 10:16 Dose: 1 mg Heparin Sodium (Porcine) (Heparin) 5,000 units SUBQ Q12HR MARIBELL Stop: 06/26/16 20:59 Last Admin: 05/03/16 10:16 Dose: 5,000 units Hydroxyzine Pamoate (Vistaril) 25 mg PO Q6HR PRN; Protocol PRN Reason: Anxiety Stop: 06/09/16 11:59 Last Admin: 05/03/16 12:39 Dose: 25 mg Sodium Chloride (Nacl 0.9%) 1,000 mls @ 0 mls/hr IV .Q0M MARIBELL PRN Reason: KVO Stop: 06/04/16 18:59 Ipratropium [place] (Atrovent Neb 0.5mg/2.5ml) 0.5 mg HHN Q4HRT [facility] Stop: 05/31/16 22:59 Last Admin: 05/03/16 16:38 Dose: 0.5 mg Lactobacillus Rhamnosus (Culturelle) 1 each PO DAILY MARIBELL Stop: 06/02/16 08:59 Last Admin: 05/03/16 10:16 Dose: 1 each Lamotrigine (Lamictal) 25 mg PO HS MARIBELL PRN Reason: Protocol Stop: 06/28/16 17:58 Last Admin: 05/02/16 22:17 Dose: 25 mg Magnesium Hydroxide (Milk Of Magnesia) 30 ml PO HS PRN PRN Reason: Constipation Stop: 05/31/16 04:26 Last Admin: 05/01/16 21:08 Dose: 30 ml Magnesium Oxide (Mag-Oxide) 400 mg PO DAILY [facility] Stop: 06/28/16 17:57 Last Admin: 05/03/16 10:17 Dose: 400 mg Ondansetron HCl (Zofran Odt) 4 mg SL Q6H PRN PRN Reason: Nausea / Vomiting Propranolol HCl (Inderal) 20 mg PO BID [facility] Stop: 06/28/16 17:57 Last Admin: 05/03/16 17:09 Dose: 20 mg Risperidone (Risperdal) 1 mg PO BID MARIBELL PRN Reason: Protocol Stop: 06/17/16 16:59 Last Admin: 05/03/16 17:10 Dose: 1 mg Sevelamer HCl (Renagel) 800 mg PO TIDWM [facility] Stop: 06/27/16 07:59 Last Admin: 05/03/16 17:09 Dose: 800 mg Sodium Phosphate (Fleet Enema) 135 ml RC DAILY PRN PRN Reason: Constipation Stop: 06/18/16 15:26 Thiamine HCl (Vitamin B1) 100 mg PO DAILY [facility] Stop: 06/05/16 08:59 Last Admin: 05/03/16 10:18 Dose: 100 mg - Procedures Procedures: Procedures Procedure Code Date RESPIRATORY VENTILATION, GREATER THAN 96 CONSECUTIVE HOURS [id number] 03/31/16 VENT MGMT INPAT INIT DAY 91518 03/31/16 VENT MGMT INPAT SUBQ DAY 80140 03/31/16
[2016-05-03] MEDS: Atorvastatin Calcium 10 MG TAB PO SCH (22:18)
--- NOTE | 2016-05-03 23:29 | Progress Notes ---
Case was discussed with staff of the patient, reviewed records. The patient is doing much better, sleeping well, eating well. She has a tracheostomy and she does have ____, so she can talk. She denies any auditory or visual hallucination or paranoia. No delusions. She denies any intent to harm herself or anybody. The patient will be going to a nursing facility. I recommend that she continue with the psychiatrist upon discharge. Thank you very much for allowing me to participate in the care of this most interesting lady. JOB# [id number]
[2016-05-04] MEDS: Albuterol/Ipratropium Neb 3 ML AERS HHN SCH ×4 (01:38→19:10)
[2016-05-04] MEDS: Ipratropium Neb 0.5 mg/2.5 mL UD HHN SCH ×3 (07:10→14:33)
--- NOTE | 2016-05-04 07:21 | Progress Notes ---
PROBLEM LIST: 1. Chronic respiratory failure. 2. Pulmonary fibrosis, previous pneumonia and/or possibly drug abuse. 3. CVA with left hemiparesis. SYMPTOMS: Nil. He is able to talk communicating even with the trach, which is inflated, no respiratory distress, etc. PHYSICAL EXAMINATION: VITAL SIGNS: The patient's recorded vitals: Temperature is 98.2, blood pressure 117/80, saturation 99% on 40% collar of oxygen. NECK: Trach site appears to be okay. CHEST: Shows diminished air entry. No other adventitious breath sounds. LABORATORY DATA: White count is 10.4, sodium is 133. ASSESSMENT: The patient clinically appears to be stable. PLANS AND SUGGESTIONS: I have gotten this ____ that we needed to put it in from outside, which is size 6 fenestrated cuffless ____ tube, which will be placed and also we will try to see if he can keep it off without the patient getting much of a respiratory distress and we will leave it ____ off for a while and if he remains okay, then we can possibly decannulated and go from there. JOB# [id number]
[2016-05-04] MEDS: Multivitamin w/ Minerals Tab GT SCH (08:37)
[2016-05-04] MEDS: Ferrous Sulfate 300 MG/5 ML UDC PO SCH (08:37)
[2016-05-04] MEDS: Chlorhexidine Gluconate 0.12% 15mL Mouthwash MM SCH ×2 (08:56→21:00)
--- NOTE | 2016-05-04 09:28 | Diagnostic Imaging Report ---
CHEST X-RAY: AP view INDICATION: Shortness of breath COMPARISON: 04/24/2016 FINDINGS: Tracheostomy tube is stable. Persistent interstitial infiltrates are noted. There is elevation of right hemidiaphragm. Heart size is normal. IMPRESSION: Persistent interstitial infiltrates, some of which may be chronic. Please correlate with clinical findings.
[2016-05-04] MEDS: Magnesium Hydroxide (MOM) 30 mL UDC PO PRN (11:51)
--- NOTE | 2016-05-04 20:34 | Progress Notes ---
Case discussed with staff of the patient, reviewed records. The patient is still awaiting placement, not medically cleared yet. She is able to speak. She denies any intent to harm herself or anyone. She is cheerful, ____. No suicidal ideation. No homicidal ideation. No paranoia, no side effects. I would recommend the same medication The patient needs to follow up with the psychiatrist upon discharge. Thank you very much for allowing me to participate in the care of this most interesting lady. [facility]# [id number]
[2016-05-04] MEDS: Atorvastatin Calcium 10 MG TAB PO SCH (21:49)
[2016-05-05] MEDS: Albuterol/Ipratropium Neb 3 ML AERS HHN SCH ×4 (00:15→19:38)
--- NOTE | 2016-05-05 00:27 | Progress Notes ---
SUBJECTIVE: The patient is awake and alert. The patient is receiving inpatient rehabilitation therapy. The patient nebulizer treatment. The patient is on IV fluids. OBJECTIVE: VITAL SIGNS: Temperature 98, pulse of 85, blood pressure per labs, respirations 18 and O2 saturation is 97% on room air. CARDIOVASCULAR: S1 and S2. RESPIRATORY: Clear. ABDOMEN: Soft. Positive bowel sounds. LABORATORY DATA: No labs today. RADIOLOGY: Chest x-ray seen. ASSESSMENT: 1. Sepsis (resolved). 2. Pneumonia secondary to MRSA, treated. 3. UTI secondary to yeast, treated. 4. CVA. 5. Suicidal ideation. 6. Debility. 7. Generalized weakness. 8. Bipolar disorder. 9. Right kidney nephrolithiasis. 10. Peripheral vascular disease. 11. Acute respiratory failure (resolved). 12. Status post trach. PLAN: Continue current medication and treatment. Obtain labs in a.m. Continue IV fluids. Continue inpatient rehabilitation treatment. health information managers will arrange for transfer to [facility] facility. JOB# [id number] [facility]
--- NOTE | 2016-05-05 04:31 | Progress Notes ---
OBJECTIVE: VITAL SIGNS: Temperature 99.6, pulse of 68, blood pressure per nursing, respirations 17, O2 sat 100% on room air. CARDIOVASCULAR: SI and S2. RESPIRATORY: Clear. ABDOMEN: Soft. Positive bowel sounds. LABORATORY DATA: Hematology: WBC 10.4, hemoglobin 10.6, hematocrit 31.6, platelet count of 359, 13% monocytes. Chemistry: Sodium 133, potassium 3.7, chloride 96, bicarbonate 29, anion gap 11, BUN 15, creatinine 0.8, GFR more than 60, glucose 110, calcium 10.2. MICROBIOLOGY: Sputum culture from 04/01/2016, shows MRSA. MRSA screen from 04/01/2016 negative. Urine culture from 04/01/2016 shows yeast. Blood culture from 04/05/2016 negative. Blood culture from 04/17/2016 negative. MRSA screen 05/16/2016 negative. RADIOLOGIC TESTS: No new radiology test. ASSESSMENT: 1. Sepsis, (resolved). 2. Pneumonia secondary to methicillin-resistant Staphylococcus aures, treated. 3. Urinary tract infection secondary to yeast, treated 4. Anemia. 5. Hypernatremia. 6. Hyperglycemia. 7. Cerebrovascular accident. 8. Suicidal ideation, general debility and generalized weakness, bipolar disorder. 9. Right kidney nephrolithiasis. 10. Peripheral vascular disease. 11. Acute respiratory failure (resolved). 12. Status post trach. PLAN: Continue medication and treatment. Obtain labs in a.m. Continue inpatient rehab therapy. manager intern will arrange for transfer to SNF. JOB# [id number] [facility]
--- NOTE | 2016-05-05 04:31 | Progress Notes ---
PROBLEM LIST: 1. Respiratory failure, chronic. 2. Trach changed to a now plug up trach, doing okay. No difficulty in swallowing or talking or breathing difficulty. PHYSICAL EXAMINATION: ENT: Shows no new changes. NECK: Trach site appears to be okay. CHEST: Shows diminished air entry without any other adventitious breath sounds. HEART: Regular. Chest x-ray shows mild chronic changes, bibasilar; otherwise, unremarkable. The patient's ABG is pending. ASSESSMENT: The patient is clinically stable and improving. PLANS AND SUGGESTIONS: We will go ahead and put on regular diet, continue the treatment if it remains stable in the next 24-48 hours, may decannulate and go from there. JOB# [id number]
[2016-05-05] MEDS: Ipratropium Neb 0.5 mg/2.5 mL UD HHN SCH ×4 (06:47→23:27)
[2016-05-05 07:01] LABS: % BASOPHILS 0.5 % (0.0-2.0); % EOSINOPHILS 3.1 % (0.0-5.0); % LYMPHOCYTES 33.5 % (20.0-50.0); % MONOCYTES 11.5 % (2.0-10.0); % NEUTROPHILS 51.4 % (40.0-80.0); HEMATOCRIT 34.5 % (35.0-45.0); HEMOGLOBIN 11.8 gm/dL (11.7-15.5); MEAN CELL VOLUME 84.6 fl (81-100); MEAN CORPUSCULAR HGB CONC 34.3 pg (28.0-36.0); MEAN PLATELET VOLUME 8.1 fl; NEUTROPHILE ABSOLUTE 6.4 Th/cmm (1.8-8.0); PLATELET COUNT 372 Th/cmm (150-400); RED BLOOD COUNT 4.07 Mil/cmm (3.80-5.10); RED CELL DISTRIBUTION WIDTH 14.9 % (11.5-20.0)
[2016-05-05 07:14] LABS: WHITE BLOOD COUNT 12.5 Th/cmm (4.8-10.8)
[2016-05-05 07:19] LABS: ANION GAP 12.7 (7.0-16.0); BUN - UREA NITROGEN 11 mg/dL (7-25); BUN/CREATININE RATIO 15.7; CALCIUM SERUM 9.9 mg/dL (8.6-10.3); CARBON DIOXIDE 27.1 mEq/L (21.0-31.0); CHLORIDE 98 mEq/L (98-107); CREATININE - SERUM 0.7 mg/dL (0.6-1.2); GLUCOSE 96 mg/dL (70-105); POTASSIUM SERUM 3.8 mEq/L (3.5-5.1); SODIUM SERUM 134 mEq/L (136-145)
[2016-05-05] MEDS: Multivitamin w/ Minerals Tab GT SCH (09:09)
[2016-05-05] MEDS: Ferrous Sulfate 300 MG/5 ML UDC PO SCH (09:10)
[2016-05-05] MEDS: Chlorhexidine Gluconate 0.12% 15mL Mouthwash MM SCH ×2 (09:11→20:45)
[2016-05-05] MEDS ORDERED: Hydrocodone/APAP 10 mg/325 mg Tab PO PRN (13:48)
[2016-05-05] MEDS: Atorvastatin Calcium 10 MG TAB PO SCH (20:44)
--- NOTE | 2016-05-05 23:36 | Progress Notes ---
Case was discussed with staff of the patient, reviewed records. The patient continues to do the same, no change in her condition. She is sleeping well, eating well. She reports no suicidal ideation, no homicidal ideation, no hallucination, no paranoia, no delusion. No side effects. I would recommend that the patient continue with the psychiatrist upon discharge. Thank you very much for allowing me to participate in the care of this most interesting lady. JOB# [id number]
--- NOTE | 2016-05-06 00:34 | Progress Notes ---
PULMONARY PROGRESS NOTE PROBLEM LIST: 1. Chronic respiratory failure. 2. Bilateral interstitial disease. 3. Underlying history of CVA with respiratory failure, also history of drug abuse. SYMPTOMS: Nil. Feeling okay. Tracheostomy changed for last 2 days and it has been plugged. No major issue in breathing. Diet is still liquid, ____ reason. PHYSICAL EXAMINATION: VITAL SIGNS: Temperature is 97, blood pressure 135/84, respirations 18, saturation is 97%. ENT: Shows no new change. NECK: Trach site appears to be okay. CHEST: Shows occasional rales with diminished air entry. HEART: Regular. ABDOMEN: Soft, nontender. LABORATORY DATA: The patient's electrolytes are okay. White count is 12.5, hemoglobin 10.8. ASSESSMENT: The patient clinically appears to be reasonably stable. PLANS AND SUGGESTIONS: We will advance to the regular diet. We will go ahead and discontinue trach in the next day or two. It depends upon how she eats with the swallowing and breathing and need for oxygen, etc. JOB# [id number]
[2016-05-06] MEDS: Albuterol/Ipratropium Neb 3 ML AERS HHN SCH ×2 (01:28→07:28)
--- NOTE | 2016-05-06 03:10 | Progress Notes ---
SUBJECTIVE: The patient is awake and alert. The patient is receiving inpatient nebulizer treatment. The patient is on IV fluids. The patient is receiving inpatient rehab therapy. OBJECTIVE: VITAL SIGNS: Temperature 97, pulse 101, blood pressure 135/84, respiratory rate 18, O2 sat 97%. CARDIOVASCULAR: S1 and S2. RESPIRATORY: Few rales. GASTROINTESTINAL: Soft. Positive bowel sounds. LABORATORY DATA: Hematology: WBC of 12.5, hemoglobin 10.8, hematocrit per labs , platelet count of 372. Chemistries: Sodium 134, potassium 3.8, chloride 98, bicarb 27, anion gap 12, BUN 11, creatinine 0.7, GFR is more than 60. Glucose 96, calcium 9.9. Microbiology: Stool culture from 04/01/2016 shows MRSA. MRSA screen 04/01/2016 negative. Urine culture from 04/01/2016 shows yeast. Blood culture from 04/05/2016 negative. Blood culture from 04/17/2016 negative. MRSA screen 04/28/2016 negative. ASSESSMENT: 1. Sepsis (resolved). 2. Pneumonia secondary to methicillin-resistant Staphylococcus aures, treated. 3. Urinary tract infection secondary to yeast, treated. 4. Leukocytosis. 5. Hyponatremia. 6. Cerebrovascular accident. 7. Suicidal ideation. 8. Debility and generalized weakness. 9. Bipolar disorder. 10. Right kidney nephrolithiasis. 11. Peripheral vascular disease. 12. Acute respiratory failure, resolved. 13. Status post trach. PLAN: Continue current medications and treatment. Obtain labs in a.m. Continue IV fluids. Continue fluid restriction. Continue inpatient rehab therapy. 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 JOB# [id number] [facility]
[2016-05-06 06:48] LABS: % BASOPHILS 0.8 % (0.0-2.0); % MONOCYTES 11.3 % (2.0-10.0); HEMATOCRIT 29.8 % (35.0-45.0); HEMOGLOBIN 10.4 gm/dL (11.7-15.5)
[2016-05-06 07:03] LABS: ALKALINE PHOSPHATASE 76 U/L (34-104); BILIRUBIN,TOTAL 0.3 mg/dL (0.3-1.0); BUN - UREA NITROGEN 11 mg/dL (7-25); BUN/CREATININE RATIO 15.7; CALCIUM SERUM 9.4 mg/dL (8.6-10.3); CARBON DIOXIDE 27.8 mEq/L (21.0-31.0); CHLORIDE 99 mEq/L (98-107); CREATININE - SERUM 0.7 mg/dL (0.6-1.2); GLUCOSE 106 mg/dL (70-105); POTASSIUM SERUM 3.8 mEq/L (3.5-5.1); SGOT 14 U/L (13-39); SGPT/ALT 11 U/L (7-52); SODIUM SERUM 132 mEq/L (136-145)
[2016-05-06 07:18] LABS: % EOSINOPHILS 3.9 % (0.0-5.0); % LYMPHOCYTES 37.9 % (20.0-50.0); % NEUTROPHILS 46.1 % (40.0-80.0); MEAN CELL VOLUME 84.5 fl (81-100); MEAN CORPUSCULAR HEMOGLOBIN 29.4 pg (27.0-31.0); MEAN CORPUSCULAR HGB CONC 34.8 pg (28.0-36.0); NEUTROPHILE ABSOLUTE 4.9 Th/cmm (1.8-8.0); PLATELET COUNT 386 Th/cmm (150-400); RED BLOOD COUNT 3.53 Mil/cmm (3.80-5.10); RED CELL DISTRIBUTION WIDTH 14.6 % (11.5-20.0); WHITE BLOOD COUNT 10.7 Th/cmm (4.8-10.8)
[2016-05-06] MEDS: Chlorhexidine Gluconate 0.12% 15mL Mouthwash MM SCH ×3 (08:30→14:28)
[2016-05-06] MEDS: Ferrous Sulfate 300 MG/5 ML UDC PO SCH (08:53)
[2016-05-06] MEDS: Multivitamin w/ Minerals Tab GT SCH (08:54)
[2016-05-06] MEDS: Ipratropium Neb 0.5 mg/2.5 mL UD HHN SCH (11:14)
--- NOTE | 2016-05-06 22:41 | Progress Notes ---
Case discussed with staff of the patient, reviewed records. The patient has ____remained the same. They are working on placement for her. She is sleeping well, eating well. No suicidal ideation, no homicidal ideation, no hallucinations, no paranoia, no side effects and the patient need to follow up with the psychiatrist upon discharge. Thank you very much for allowing me to participate in the care of this most interesting lady. [facility]# [id number]
--- NOTE | 2016-05-07 00:49 | Progress Notes ---
PULMONARY PROGRESS NOTE PROBLEM LIST: 1. Acute on chronic respiratory failure. 2. Hemiplegia. 3. Mild degree of pulmonary fibrosis. 4. Left hemiplegia with history of previous depression and anxiety. SYMPTOMS: Nil. She is able to communicate pretty good with the trach being plugged. I understand that the patient is being transferred to other facility today. PHYSICAL EXAMINATION: VITAL SIGNS: Temperature is 97.4, blood pressure is 113/71, saturation 97% on room air. ENT: Shows no new changes. NECK: Trach site appears to be okay. CHEST: Shows diminished air entry. HEART: Regular. ASSESSMENT: The patient is clinically remarkably improving. PLANS AND SUGGESTIONS: Consideration of removal of trach in the next 2-3 days if it remains okay and go from there. JOB# [id number]
--- NOTE | 2016-05-25 23:45 | Discharge Summary ---
DISCHARGE DIAGNOSES: For the patient is: 1. Sepsis (resolved). 2. Pneumonia secondary to methicillin-resistant Staphylococcus aureus (treated). 3. Urinary tract infection secondary to yeast (treated). 4. Leukocytosis. 5. Hyponatremia. 6. Cerebrovascular accident. 7. Suicidal ideation. 8. Debility and generalized weakness. 9. Bipolar disorder. 10. Right kidney nephrolithiasis. 11. Peripheral vascular disease. 12. Acute respiratory failure (resolved). 13. Status post trach. HOSPITAL COURSE: The patient is a white female who was transferred from [facility]. The patient admitted with diagnosis of: 1. MRSA pneumonia. 2. Respiratory failure ([id number]). 3. Ventilator dependent. 4. History of drug abuse. 5. History of alcohol abuse. 6. History of methamphetamine abuse. 7. Cerebrovascular accident. 8. Depression. 9. Suicidal ideation. The patient was admitted by Dr. Megan Gupta. Consultation obtained. Infectious disease consultation obtained from Dr. Galdino Perera, pulmonary consultation with Dr. Ani Perera and psych consultation from Dr. Aparicio. The patient was started on empiric coverage with IV antibiotics consisting of vancomycin and Fortaz and Levaquin. Results of the castillo culture showed. Sputum culture from 04/01 showed MRSA. MRSA screen on 04/01 was negative. Urine culture from 04/01 showed yeast. Blood culture from 04/05 negative. Blood culture from 04/17 negative and MRSA screen from 04/28 was negative. The patient completed treatment for MRSA pneumonia. The patient showed improvement in her respiratory status and the patient was eventually weaned off of ventilator. The patient required 1:1 sitter for her history of suicidal ideation. The patient was discharged to [facility] health care for further management of her decrease in debility and generalized weakness. [facility]# [id number] AM[facility]
== END 2016-05-06 16:00 | DRG 720 ==
LOC: ICU 23:48 → TELE 04-07 15:35 → MSI 04-30 15:33
PROVIDERS: ADMIT Preventive Medicine Preventive Medicine/Occupational Environmental Medicine; ATTEND Preventive Medicine Preventive Medicine/Occupational Environmental Medicine
PROC: 5A1955Z Respiratory Ventilation, Greater than 96 Consecutive Hours (ICD-10-PCS; principal; 2016-03-31)
DX: A41.9 Sepsis, unspecified organism (principal); J96.20 Acute and chronic respiratory failure, unspecified whether with hypoxia or hypercapnia; G93.40 Encephalopathy, unspecified; Z99.11 Dependence on respirator [ventilator] status; J15.212 Pneumonia due to Methicillin resistant Staphylococcus aureus; Z93.0 Tracheostomy status; I69.354 Hemiplegia and hemiparesis following cerebral infarction affecting left non-dominant side; R45.851 Suicidal ideations; F31.9 Bipolar disorder, unspecified; F29 Unspecified psychosis not due to a substance or known physiological condition; F19.20 Other psychoactive substance dependence, uncomplicated; F41.9 Anxiety disorder, unspecified; B96.89 Other specified bacterial agents as the cause of diseases classified elsewhere; R13.10 Dysphagia, unspecified; E87.1 Hypo-osmolality and hyponatremia; R73.9 Hyperglycemia, unspecified; D64.9 Anemia, unspecified; F10.10 Alcohol abuse, uncomplicated; F15.10 Other stimulant abuse, uncomplicated; D47.3 Essential (hemorrhagic) thrombocythemia; B37.49 Other urogenital candidiasis; E83.39 Other disorders of phosphorus metabolism; I73.9 Peripheral vascular disease, unspecified; N20.0 Calculus of kidney; Z93.1 Gastrostomy status; Z88.0 Allergy status to penicillin; Z88.2 Allergy status to sulfonamides
CPT/HCPCS: 36415-UA; 36600-90; 71010-TC; 76700-TC; 76770-TC; 80048-TC; 80053-TC; 80202-TC; 81001-TC; 81050-TC; 82105-90; 82140-TC; 82150-TC; 82248-TC; 82306-90; 82310-90; 82330-90; 82575-TC; 82803-TC; 83519-90; 83690-TC; 83735-TC; 83880-TC; 83970-90; 84100-TC; 84156-TC; 84165-90; 84300-TC; 84439-90; 84550-TC; 84560-90; 85007-TC; 85025-TC; 85027-TC; 85610-TC; 85652-TC; 86141-TC; 86592-TC; 87070; 87086-90; 90779; 93005; 93925-TC; 93970-TC-50; 93971-TC-LT; 94002; 94003; 94760; 97530; 99201; A4217; C1751; J0713; J1200; J1644; J1956; J2060; J2430; J3370; J3475; J3480; J7030; J7040; Q0177; X3401; X3904; X4304; Z7610

== ENCOUNTER 2016-05-16 14:50 | Emergency (ER) | payer MEDICAID, MEDICARE ==
--- NOTE | 2016-05-16 15:13 | ED Physician Chart ---
Chief Complaint/HPI - Patient Information Date Seen:: 05/16/16 Time Seen:: 14:50 Chief Complaint:: tracheostomy malfunction History of Present Illness:: 50-year-old female history of tracheostomy tube placement about 3 months ago but now no longer dependent on tracheostomy, brought in with acute, worsening, constant, moderate, tracheostomy tube malfunction that started about 3 days ago. Has associated anxiety about the tracheostomy tube becoming filled with phlegm. Allergies:: Allergies Allergy/AdvReac Type Severity Reaction Status Date / Time Penicillins Allergy Verified 05/16/16 14:54 Sulfa (Sulfonamide Allergy Verified 05/16/16 14:55 Antibiotics) Vitals:: Vital Signs - 8 hr 05/16/16 14:56 Temp 97.0 F HR 72 RR 16 BP 137/87 O2 Sat % 96 Historian:: Patient, EMS Review:: Nurse's Note Reviewed, EMS run form Reviewed Review of Systems - Review of Systems Other: Complete system review otherwise unremarkable except as noted in history of present illness. Past Medical History - Past Medical History Past Medical History: HTN, CVA/TIA, Other (respiratory failure, CVA) Family History: None Social History: Non Smoker, No Alcohol, No Drug Use, Care Facility Surgical History: PEG/GTube, other (tracheostomy) Psychiatricy History: None Medication: Reviewed Family Medical History - Family Member Mother History Unknown: Yes Physical Exam - Physical Examination Other:: INITIAL VITAL SIGNS: Reviewed by me GENERAL: Alert and interactive. No acute distress HEAD: Head is normocephalic and atraumatic EYES: EOMI. PERRL. No scleral icterus. No conjunctival injection ENT: Moist mucous membranes. NECK: Supple. No masses. Full range of motion. Tracheostomy in place. RESPIRATORY: No tachypnea. Clear breath sounds bilaterally. No wheezing, rales, or rhonchi CV: Regular rate and rhythm. No murmurs, rubs, or gallops ABDOMEN: Soft, non-distended, non-tender. No guarding. No rebound. No masses. EXTREMITIES: No deformity. No cyanosis. No edema. SKIN: Warm and dry. No obvious rashes. NEUROLOGIC: Alert and oriented. Face is symmetric. Speech is normal. Moves all extremities equally. Motor and sensory distally intact. ED Septic Shock - . Is Septic Shock (SBP<90, OR Lactate>4 mmol\L) present?: No - <6hrs of presentation: Vital Signs: Vital Signs - 8 hr 05/16/16 14:56 Temp 97.0 F HR 72 RR 16 BP 137/87 O2 Sat % 96 Reassessment (Disposition) - Reassessment Reassessment:: Tracheostomy was DC'd. Patient was extubated. No signs of respiratory distress. Placed Vaseline soaked gauze over the stoma site. The patient is speaking and is comfortable. Oxygen saturation was 96% on room air. Follow-up with primary physician 2-3 days. Return to ER precautions given. Patient understands and agrees the plan. Reassessment Condition:: Improved - Diagnosis Diagnosis:: Tracheostomy extubation Malfunction tracheostomy Hypertension History of respiratory failure - Aftercare/Follow up Instructions Aftercare/Follow-Up Instructions:: Counseled pt regarding lab results/diagnosis & need follow up, Refer to Discharge Instructions - Patient Disposition Discharge/Transfer:: Home Time:: 15:20 Condition at Disposition:: Improved ED Discharge Plan - Patient Disposition Admit/Discharge/Transfer: PT DISCHARGED HOME Condition at Disposition: Improved Instructions: Stoma Care and Tracheostomy Tie Change
== END 2016-05-16 15:30 ==
LOC: MERGE 14:50 → ER 14:50 → EDBD 14:50 → ER 15:30
DX: J95.03 Malfunction of tracheostomy stoma (principal); I10 Essential (primary) hypertension; Z88.0 Allergy status to penicillin; Z88.2 Allergy status to sulfonamides; Z86.73 Personal history of transient ischemic attack (TIA), and cerebral infarction without residual deficits; Z93.0 Tracheostomy status
CPT/HCPCS: Z7502; Z7610

== ENCOUNTER 2017-04-11 16:17 | Inpatient (IN) | payer MEDICAID ==
--- NOTE | 2017-04-11 16:23 | ED Physician Chart ---
ED Chief Complaint/HPI - Patient Information Date Seen:: 04/11/17 Time Seen:: 16:15 Chief Complaint:: Seizures History of Present Illness:: onset x one day of a report of a seizure; no report of trauma, H/As, AMS, ALOC, LOC, syncope, weakness, dizziness, S/T, neck pain, C/P, SOB, Abd. Pain, A/N/V/D/ C, fever, chills, or urinary s/s; pt's last tetanus shot: < 5 years; UTD; Allergies:: Allergies Allergy/AdvReac Type Severity Reaction Status Date / Time Penicillins Allergy Unknown Verified 04/01/16 01:06 Sulfa (Sulfonamide Allergy Unknown Verified 04/01/16 01:06 Antibiotics) Historian:: Patient, EMS Review:: Nurse's Note Reviewed, Old Chart Reviewed, EMS run form Reviewed ED Review of Systems - Review of Systems General/Constitutional: No fever, No chills, No weight loss, No weakness, No diaphoresis, No edema, No loss of appetite Skin: No skin lesions, No rash, No bruising Head: No headache, No light-headedness Eyes: No loss of vision, No pain, No diplopia ENT: No earache, No nasal drainage, No sore throat, No tinnitus Neck: No neck pain, No swelling, No thyromegaly, No stiffness, No mass noted Cardio Vascular: No chest pain, No palpitations, No PND, No orthopnea, No edema Pulmonary: No SOB, No cough, No sputum, No wheezing GI: No nausea, No vomiting, No diarrhea, No pain, No melena, No hematochezia, No constipation, No hematemesis G/U: No dysuria, No frequency, No hematuria, No nacturia 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: No abnormal vaginal bleed, No contraction Musculoskeletal: No bone or joint pain, No back pain, No muscle pain Endocrine: No polyuria, No polydipsia Psychiatric: Prior psych history, No depression, Anxiety, No suicidal ideation, No homicidal ideation, Auditory hallucination, No visual hallucination Hematopoietic: No bruising, No lymphadenopathy Allergic/Immuno: No urticaria, No angioedema Neurological: No syncope, No focal symptoms, No weakness, No paresthesia, No headache, Seizure, No dizziness, Confusion, No vertigo ED Past Medical History - Past Medical History Obtainable: Yes Past Medical History: HTN, Dyslipidemia, Dementia, Other (UTI) Family History: Diabetes Melitus, HTN Social History: Non Smoker, Alcohol, No Drug Use, Single, Care Facility Surgical History: None Psychiatricy History: Depression, Schizophrenia, Bipolar, Dementia Medication: Reviewed Family Medical History - Family Member Mother History Unknown: Yes Father History Unknown: Yes ED Physical Exam - Physical Examination General/Constitutional: Awake, Well-developed, well-nourished, Alert, No distress, GCS 15, Non-toxic appearing, Ambulatory Head: Atraumatic Eyes: Lids, conjuctiva normal, PERRL, EOMI Skin: Nl inspection, No rash, No skin lesions, No ecchymosis, Well hydrated, No lymphadenopathy ENMT: External ears, nose nl, TM canals nl, Nasal exam nl, Lips, teeth, gums nl , Oropharynx nl, Tonsils nl Neck: Nontender, Full ROM w/o pain, No JVD, No nuchal rigidity, No bruit, No mass, No stridor Respiratory: Nl effort/Exclusion, Clear to Auscultation, No Wheeze/Rhonchi/Rales Cardio Vascular: RRR, No murmur, gallop, rubs, NL S1 S2, Carotid/Femoral/Distal pulses equal bilaterally GI: No tenderness/rebounding/guarding, No organomegaly, No hernia, Normal BS's, Nondistended, No mass/bruits, No McBurney tenderness : No CVA tenderness Extremities: No tenderness or effusion, Full ROM, normal strength in all extremities, No edema, Normal digits & nails Neuro/Psych: DTR's symmetric, Normal sensory exam, Normal motor strength, Judgement/insight normal, Mood normal, Normal gait, No focal deficits Other Neuro/Psych comments:: Confused and Disoriented Misc: Normal back, No paraspinal tenderness ED Labs/Radiology/EKG Results - Lab Results Comments:: Na+: 135 - EKG Interpretations EKG Time:: 16:53 Rate & Rhythm: 62; NSR Comments:: non-specific st-t changes ED Septic Shock - . Is Septic Shock (SBP<90, OR Lactate>4 mmol\L) present?: No
[2017-04-11] MEDS ORDERED: Sodium Chloride 0.9% 1,000 ML IV ONE (16:26)
[2017-04-11 16:43] LABS: % BASOPHILS 0.7 % (0.0-2.0); % EOSINOPHILS 2.9 % (0.0-5.0); % LYMPHOCYTES 38.6 % (20.0-50.0); % MONOCYTES 6.6 % (2.0-10.0); % NEUTROPHILS 51.2 % (40.0-80.0); BASOPHILE ABSOLUTE 0.1 Th/cumm (0-0.2); EOSINOPHILE ABSOLUTE 0.3 Th/cmm (0.1-0.4); LYMPHOCYTE ABSOLUTE 4.1 Th/cmm (1.5-3.0); MEAN CELL VOLUME 86.8 fl (81-100); MEAN CORPUSCULAR HEMOGLOBIN 29.1 pg (27.0-31.0); MEAN CORPUSCULAR HGB CONC 33.6 pg (28.0-36.0); MEAN PLATELET VOLUME 7.6 fl; MONOCYTE ABSOLUTE 0.7 Th/cmm (0.3-1.0); NEUTROPHILE ABSOLUTE 5.5 Th/cmm (1.8-8.0); PLATELET COUNT 318 Th/cmm (150-400); RED BLOOD COUNT 4.81 Mil/cmm (3.80-5.10); RED CELL DISTRIBUTION WIDTH 13.6 % (11.5-20.0); WHITE BLOOD COUNT 10.7 Th/cmm (4.8-10.8)
[2017-04-11 16:46] LABS: HEMATOCRIT 41.7 % (41.0-60)
[2017-04-11 16:49] LABS: PROTHROMBIN TIME (TEST) 10.4 SECONDS (9.5-11.5)
[2017-04-11 16:56] LABS: ALB/GLOB RATIO 1.4 (1.0-1.8); ALBUMIN 4.5 gm/dL (3.7-5.3); ALKALINE PHOSPHATASE 133 U/L (34-104); ANION GAP 12.1 (7.0-16.0); BILIRUBIN,TOTAL 0.4 mg/dL (0.3-1.0); BUN - UREA NITROGEN 15 mg/dL (7-25); CALCIUM SERUM 9.9 mg/dL (8.6-10.3); CARBON DIOXIDE 25.3 mEq/L (21.0-31.0); CHLORIDE 102 mEq/L (98-107); CHOLESTEROL 156 mg/dL (<200); CREATININE - SERUM 0.8 mg/dL (0.6-1.2); CREATININE KINASE 71 U/L (30-223); GFR AFRICAN-AMERICAN > 60.0 ml/min (>90); GFR NON AFRICAN-AMERICAN > 60.0 ml/min; GLUCOSE 91 mg/dL (70-105); HDL -HIGH DENSITY LIPOPROTEIN 52 mg/dL (23-92); POTASSIUM SERUM 4.4 mEq/L (3.5-5.1); SGOT 35 U/L (13-39); SGPT/ALT 30 U/L (7-52); SODIUM SERUM 135 mEq/L (136-145); TOTAL PROTEIN,SERUM 7.8 gm/dL (6.0-8.3); TRIGLYCERIDES 211 mg/dL (<150)
[2017-04-11 17:10] LABS: AMYLASE SERUM 52 U/L (29-103); LIPASE 18 U/L (11-82)
[2017-04-12] MEDS: Hydrocodone/APAP 10 mg/325 mg Tab PO PRN ×4 (01:12→15:45)
[2017-04-12 06:23] LABS: HEMATOCRIT 38.2 % (41.0-60); HEMOGLOBIN 12.8 gm/dL (12-16); MEAN CELL VOLUME 86.8 fl (81-100); MEAN CORPUSCULAR HGB CONC 33.4 pg (28.0-36.0); MEAN PLATELET VOLUME 7.5 fl; PLATELET COUNT 304 Th/cmm (150-400); RED CELL DISTRIBUTION WIDTH 13.8 % (11.5-20.0)
[2017-04-12 06:36] LABS: WHITE BLOOD COUNT 7.4 Th/cmm (4.8-10.8)
[2017-04-12 06:37] LABS: ALB/GLOB RATIO 1.4 (1.0-1.8); ALBUMIN 3.9 gm/dL (3.7-5.3); ALKALINE PHOSPHATASE 108 U/L (34-104); ANION GAP 10.3 (7.0-16.0); BILIRUBIN,TOTAL 0.3 mg/dL (0.3-1.0); BUN - UREA NITROGEN 13 mg/dL (7-25); CALCIUM SERUM 9.3 mg/dL (8.6-10.3); CARBON DIOXIDE 24.5 mEq/L (21.0-31.0); CHLORIDE 108 mEq/L (98-107); CREATININE - SERUM 0.7 mg/dL (0.6-1.2); GFR AFRICAN-AMERICAN > 60.0 ml/min (>90); GFR NON AFRICAN-AMERICAN > 60.0 ml/min; GLUCOSE 86 mg/dL (70-105); POTASSIUM SERUM 3.8 mEq/L (3.5-5.1); SGOT 25 U/L (13-39); SGPT/ALT 24 U/L (7-52); SODIUM SERUM 139 mEq/L (136-145); TOTAL PROTEIN,SERUM 6.6 gm/dL (6.0-8.3)
[2017-04-12 07:42] LABS: BAND NEUTROPHILE 1 % (0-10); EOSINOPHIL 4 % (0-5); LYMPHOCYTE 51 % (20-50); MONOCYTE 8 % (2-10); NEUTROPHILS 28 % (40-80); TOTAL CELLS COUNTED 100
[2017-04-12 07:43] LABS: ATYPICAL LYMPH 8 %
[2017-04-12 07:44] LABS: PLATELET ESTIMATE ADEQUATE (NORMAL)
--- NOTE | 2017-04-12 08:41 | Diagnostic Imaging Report ---
Exam: CT examination of the brain. HISTORY: Seizures. Total DLP equals 684 CTDI equals 39.7 Findings: Multiple contiguous thin section of the brain were obtained from the base of skull to the vertex without the administration of contrast material. The study demonstrates large hypodensity in the right frontal lobe extending from the level of midbrain only to the apex Another area of low density is noted in left posterior parietal occipital lobe abutting the midline extending to the vertex. This areas of low density most likely related to encephalomalacia. There is no evidence of hemorrhage midline shift or edema. The cerebellum is intact. The bony calvarium is normal. The paranasal sinuses are well aerated. IMPRESSION: Reported Large area of encephalomalacia right frontoparietal lobe Large area with cephalization malacia the left posterior parietal occipital lobe. Correlation with prior exams recommended. If clinically indicated CT examination with contrast or MRI examination might be helpful.
[2017-04-12] MEDS ORDERED: Fleet Enema 135 mL RC PRN (14:18)
[2017-04-12] MEDS ORDERED: Guaifenesin DM 10 ML UDC PO PRN (14:18)
[2017-04-12] MEDS ORDERED: APAP/Oxycodone 5/325mg Oral Tab PO PRN (14:35)
[2017-04-12] MEDS: Lactulose 10 Gm/15 mL 30mL UDC PO SCH (16:42)
--- NOTE | 2017-04-12 17:49 | History & Physical ---
ADMIT DATE: MEDICAL H AND P PATIENT'S IDENTIFICATION: A 51-year-old female. CHIEF COMPLAINT: "I had a seizure." HISTORY OF PRESENT ILLNESS: A 51-year-old female who resides at a long-term after the patient had a stroke and has left-sided weakness, has also diagnosis of peripheral neuropathy, chronic pain syndrome, DJD, hypertension, hyperlipidemia, noted by nursing staff that while she was talking to the social worker health services she had a tonic-clonic activity. The patient was altered as well. When the patient arrived in the Emergency Room, the patient was worked up. The patient's CT scan of the head was unremarkable for a new stroke, but remarkable for previous stroke. The patient has now been admitted to the hospital for further management considering the patient has new onset of seizure and the patient needs to be evaluated further by neurologist. PAST MEDICAL HISTORY: Remarkable for: 1. Hypertension. 2. Hyperlipidemia. 3. DJD. 4. CVA with left-sided weakness. 5. Chronic pain syndrome. 6. Psychotic disorder. 7. Decline in self-care. MEDICATIONS: List has been reviewed and reconciled appropriately. ALLERGIES: Sulfa. SOCIAL HISTORY: Lives in a long-term. No smoking, alcohol or drug use. FAMILY MEDICAL HISTORY: Remarkable for diabetes and hypertension. REVIEW OF SYSTEMS: The patient denies any headache, blurred vision, double vision, dysphagia, odynophagia, runny nose, stuffy nose, fever, chills, cough, chest pain, shortness of breath, palpitation, dizziness, nausea, vomiting, diarrhea, dysuria, hematuria, hematochezia, and melena. PHYSICAL EXAMINATION: GENERAL: Alert, awake, oriented, lying in the bed without any acute distress. VITAL SIGNS: Temperature 98, pulse is 74, respiratory rate 18, blood pressure 136/80. HEENT: Normocephalic, atraumatic. Extraocular muscles are intact. Tongue was pink and coated. Poor dentition noted. NECK: Supple. No JVD. No hepatojugular reflux. No lymphadenopathy, thyromegaly, or carotid bruit. Old surgical scar from ____ tracheostomy noted. HEART: Both heart sounds are regular. No S3, no S4, no murmur. CHEST: Lung equal in expansion. No wheezing. No crackles. ABDOMEN: Soft. No guarding. No rigidity. Liver, spleen not palpable. No palpable masses. EXTREMITIES: No edema, no cyanosis, no clubbing. Pulses are +1. No calf tenderness noted. Left foot drop noted. NEUROLOGY: Left-sided weakness noted. AVAILABLE DIAGNOSTIC DATA: CT scan of the head was unremarkable for any new stroke. Chemistry panel remarkable for sodium ____. Troponin 0.01. Triglycerides are 211, LDL of 74. CBCs are within normal limit. Chest x-ray is not available. CLINICAL IMPRESSION: 1. New onset of seizure. 2. CVA with left-sided weakness. 3. Chronic pain syndrome. 4. Hypertension. 5. Hyperlipidemia. 6. Psychotic disorder. 7. Peripheral neuropathy. PLAN: 1. The patient is currently on Lamictal, which will be increased to twice a day. 2. Neurology consult. 3. Ativan p.r.n. for seizure. 4. Appropriate home medicine reconciliation. 5. Neurology evaluation. 6. Pain management. 7. Follow lab. 8. Follow consult recommendation. 9. Care plan reviewed and discussed. JOB# [id number]
[2017-04-12] MEDS ORDERED: Docusate Sodium/Senna Tab PO SCH (21:00)
[2017-04-12] MEDS ORDERED: Atorvastatin Calcium 10 MG TAB PO SCH (21:00)
[2017-04-12] MEDS: Hydrocodone/APAP 5mg/325mg Tab PO PRN (21:04)
[2017-04-13] MEDS: Hydrocodone/APAP 10 mg/325 mg Tab PO PRN ×2 (08:07→14:06)
[2017-04-13] MEDS ORDERED: Non-Formulary Item 1 EA (Cranberry Fruit Concentrate [Cranberry] 450 MG) PO SCH (09:00)
[2017-04-13] MEDS ORDERED: SOLIFENACIN SUCCINATE 10 MG PO SCH (09:00)
[2017-04-13] MEDS ORDERED: Ferrous Sulfate 325 MG TAB PO SCH (09:00)
[2017-04-13] MEDS ORDERED: Multivitamin w/ Minerals Tab PO SCH (09:00)
[2017-04-13] MEDS: Lactulose 10 Gm/15 mL 30mL UDC PO SCH ×2 (10:10→16:58)
--- NOTE | 2017-04-13 10:54 | Discharge Summary ---
DATE OF DISCHARGE: 04/13/2017 DISPOSITION: To assisted 04/13/2017. PRINCIPAL DIAGNOSES: 1. New onset of seizure. 2. Cerebrovascular accident with left-sided weakness. 3. Abnormal CT scan of the head most likely seizure focus. 4. Hypertension. 5. Hyperlipidemia. 6. Chronic pain syndrome. 7. Psychotic disorder. 8. Degenerative joint disease. 9. Decline in self-care. BRIEF STATEMENT FOR THE REASON FOR ADMISSION: A 51-year-old female, resident of assisted, brought in to the Emergency Room for tonic-clonic activity with altered mental status. The patient was evaluated in the Emergency Room, subsequently admitted to the hospital for further treatment. HOSPITAL COURSE: The patient was admitted to telemetry unit. The patient was already taking Lamictal. The dose was increased to twice a day. Neurology consultation was requested. Appropriate home medicine reconciliated. The pain management was also provided as well. In the view of her taking 2 tablets of [place], the patient was given Percocet 1 tablet and her pain was adequately controlled. The patient did not have any further seizure activity. The patient wanted to go home as well. Since the patient had abnormal CT head, which most likely focus for the seizure activity and the patient remained hemodynamically stable and the patient did have a p.r.n. Ativan, decision was made that the patient should be discharged back to assisted with increasing dose of Lamictal to twice a day and have a followup Lamictal level and adjust the dose of Lamictal. The patient will have seizure precautions as well. The patient has been discharged back to [facility] with increasing dose of Lamictal and other medication as patient receiving except discontinuation of [place] and using Percocet for the pain. The patient will be followed by her sales operations analyst. [facility]# [id number]
[2017-04-13] MEDS: Hydrocodone/APAP 5mg/325mg Tab PO PRN (12:26)
--- NOTE | 2017-04-13 21:25 | Progress Notes ---
DATE: 04/13/2017 SUBJECTIVE: The patient was seen and examined. The patient says "I want to go home." I do not have any more problem. The patient denies any complaint. PHYSICAL EXAMINATION: VITAL SIGNS: Temperature 97.8, pulse 70, respiratory rate 18, blood pressure 103/62. HEENT: No facial asymmetry. NECK: Supple, no JVD. HEART: Regular, no murmur. CHEST AND LUNGS: Equal in expansion. No wheezing. No crackles. ABDOMEN: Soft. No guarding. No rigidity. Bowel sounds are present. No palpable mass. EXTREMITIES: No edema. No cyanosis. NEUROLOGIC: Left-sided weakness. CLINICAL IMPRESSION: 1. Seizure, stable on Lamictal. No further seizure activity. 2. Chronic pain syndrome. 3. Degenerative joint disease. 4. Cerebrovascular accident with left-sided weakness. 5. Psychotic disorder. 6. Hypertension. 7. Hyperlipidemia. PLAN: The patient discharged back to long-term today. Discharge instructions discussed with the patient at discharge summary. JOB# [id number]
== END 2017-04-13 17:00 | disposition home or self-care (01) | DRG 53 ==
LOC: ER 16:17 → TELE 22:35
PROVIDERS: ADMIT Internal Medicine; ATTEND Internal Medicine
DX: R56.9 Unspecified convulsions (principal); F03.90 Unspecified dementia, unspecified severity, without behavioral disturbance, psychotic disturbance, mood disturbance, and anxiety; F20.9 Schizophrenia, unspecified; G62.9 Polyneuropathy, unspecified; I69.354 Hemiplegia and hemiparesis following cerebral infarction affecting left non-dominant side; G89.4 Chronic pain syndrome; I10 Essential (primary) hypertension; E78.5 Hyperlipidemia, unspecified; F31.9 Bipolar disorder, unspecified; F29 Unspecified psychosis not due to a substance or known physiological condition; M19.90 Unspecified osteoarthritis, unspecified site
CPT/HCPCS: 36415-UA; 70450-TC; 80053-TC; 80061-TC; 80299-90; 80320-TC; 81025-TC; 82150-TC; 82550-TC; 83690-TC; 83880-TC; 84484-TC; 84703-TC; 85007-TC; 85025-TC; 85027-TC; 85610-TC; 93005; 94760; J2060; J7030; Z7610